=== PATIENT | male | born 1970 | race Caucasian/White ===

== ENCOUNTER → 2018-04-05 14:32 | Outpatient (CLI) | payer BC, SELFPAY ==
[2018-04-05 13:43] VITALS: BMI 28.8
[2018-04-05 15:31] LABS: Anion Gap 5 (5-15); BUN 19 mg/dL (7-18); BUN/Creat Ratio 19.1 RATIO (10-20); Calcium,Total 8.7 mg/dL (8.5-10.1); Chloride 107 mmol/L (98-107); EST Glomerular Filtration Rate 85 mL/min (>60); Est Glom Filt Rate - Afr Amer 102 mL/min (>60); Glucose 84 mg/dL (74-106); Potassium 4.2 mmol/L (3.5-5.1); Sodium Level 137 mmol/L (136-145)
== END ==
PROVIDERS: Referring Provider Internal Medicine Cardiovascular Disease; Visit Provider Internal Medicine Cardiovascular Disease
DX: I10 Essential (primary) hypertension (principal)
CPT/HCPCS: 36415; 80048

== ENCOUNTER → 2018-05-06 11:56 | Outpatient (CLI) | payer BC, SELFPAY ==
[2018-05-06 10:58] VITALS: BMI 28.8
[2018-05-06 15:19] LABS: Absolute Lymphocyte Count 3.85 X10^3/ul (0.83-4.51); Absolute Neutrophil Count 4.2 X10^3/uL (2.0-7.7); Basophil# 0.04 X10^3/uL; Basophil% 0.4 % (0-1); Eosinophil# 0.19 X10^3/uL; Eosinophils% 2.1 % (0-5); Hematocrit 45.6 % (40-54); Hemoglobin 14.3 g/dl (13.0-16.5); Lymphocyte # 3.85 X10^3/ul (4.0); Lymphocyte % 41.9 % (19-41); Mean Corp Hgb Conc 31.4 g/gl (32-36); Mean Corpuscular Hgb 28.5 pg (27.0-32.0); Mean Platelet Vol. 11.4 fl (6.2-12.0); Monocyte# 0.92 X10^3/uL; Neutrophil # 4.18 X10^3/uL (2.7-7.7); Neutrophil % 45.5 % (47-70); Platelet Count 295 K/mm3 (150-450); RBC Distribution Width CV 15.2 % (11.6-14.6); RBC Distribution Width SD 50.7 fl (35.1-43.9); Red Blood Count 5.01 M/mm3 (4.6-6.2); White Blood Count 9.2 K/mm3 (4.4-11.0)
[2018-05-06 15:23] LABS: POSITIVE COUNT NO; POSITIVE DIFFERENTIAL NO; POSITIVE MORPHOLOGY NO
[2018-05-06 15:44] LABS: Anion Gap 8 (5-15); BUN 13 mg/dL (7-18); BUN/Creat Ratio 12.9 RATIO (10-20); Calcium,Total 8.8 mg/dL (8.5-10.1); Chloride 106 mmol/L (98-107); Creatinine, Serum 1.01 mg/dL (0.70-1.30); EST Glomerular Filtration Rate 83 mL/min (>60); Est Glom Filt Rate - Afr Amer 101 mL/min (>60); Glucose 91 mg/dL (74-106); Sodium Level 140 mmol/L (136-145); Thyroid Stim Hormone (TSH) 1.51 uIU/mL (0.358-3.74)
== END ==
PROVIDERS: Visit Provider Physician Assistant Medical
DX: I10 Essential (primary) hypertension (principal); I47.1 Supraventricular tachycardia; R00.2 Palpitations
CPT/HCPCS: 36415; 80048; 83735; 84443; 85025

== ENCOUNTER → 2018-10-23 17:47 | Outpatient (CLI) | payer BC, SELFPAY ==
[2018-05-20 15:27] VITALS: BMI 28.8
--- NOTE | 2018-10-23 17:55 | CT_ITS ---
STUDY: CT MAXILLOFACIAL SINUSES REASON FOR EXAM: Male, 48 years old. Sinusitis, sinus congestion RADIATION DOSAGE (If Supplied By Facility): CTDIvol = ( 33.06 ) mGy, DLP = ( 871.04 ) mGycm TECHNIQUE: The patient was scanned in a multi detector CT scanner. High resolution axial imaging was performed without the administration of intravenous contrast material. Sagittal and coronal images were reconstructed. Individualized dose optimization techniques were used for this CT. COMPARISON: MRI brain 04/09/2014. FINDINGS: FRONTAL SINUSES: There is mucosal thickening and partial opacification.. ETHMOIDAL SINUSES: There is significant opacification and mucosal thickening. MAXILLARY SINUSES: There is mucosal thickening without air-fluid levels. There is disruption of the inferior floor of the right maxillary sinus with displaced tooth into the right maxillary sinus. SPHENOIDAL SINUSES: There is mild mucosal thickening. There are no air-fluid levels. There is bilateral soft tissue obstruction of the ostiomeatal complexes. There is mild edema of the turbinates. Mild deviation of the bony nasal septum to the right. The visualized bilateral orbital contents are normal. The patient is partially edentulous. There are significant multilevel degenerative changes of the cervical spine only partially included on the oowwa-yu-bter. There is multilevel disc osteophyte complexes, disc space narrowing, uncinate hypertrophy, significant multilevel facet degenerative changes. There is multilevel central canal and foraminal stenoses CT/Sinus/Facial Bone IMPRESSION: Significant diffuse pansinusitis with the most significant involvement are the ethmoid sinuses Bilateral soft tissue obstruction of the ostiomeatal complexes Disruption of the inferior floor of the right maxillary sinus with a displaced tooth into the right maxillary sinus Mild deviation of the bony nasal septum to the right Mild edema of the turbinates The patient is partially edentulous. Multilevel spondylosis of the cervical spine as described above Electronically Signed: Cesar Hearn, at 7:39 EDT Tel , Service support ,
== END ==
PROVIDERS: Referring Provider Otolaryngology; Visit Provider Otolaryngology
DX: J32.0 Chronic maxillary sinusitis (principal)
CPT/HCPCS: 70486

== ENCOUNTER 2019-06-10 00:12 | Observation (INO) | payer BC, SELFPAY ==
[2018-12-12 15:37] VITALS: BMI 28.8
[2019-06-10] VITALS (13 sets, daily range): BP systolic 121–154; BP diastolic 75–96; PULSE 70–86; RESP 14–20; TEMP 36.3–36.8; O2SAT 93–99; BMI 29.2; BMI 28.6; BMI 28.7
--- NOTE | 2019-06-10 00:17 | ED.RN ---
SUSI [facility] EKGS FOR
--- NOTE | 2019-06-10 00:23 | EKG12_ITS ---
Test Reason : CP Blood Pressure : / mmHG Vent. Rate : 082 BPM Atrial Rate : 082 BPM P-R Int : 146 ms QRS Dur : 152 ms QT Int : 398 ms P-R-T Axes : 051 015 032 degrees QTc Int : 464 ms Normal sinus rhythm Right bundle branch block Abnormal ECG Confirmed by RAS SIN ([id number]), communications editor DHARA MILAN ([id number]) on 06/16/2019 2:51:09 PM Referred By: DC Confirmed By:RAS SIN
--- NOTE | 2019-06-10 00:23 | RAD_ITS ---
STUDY: X-RAY CHEST REASON FOR EXAM: Male, 49 years old. C/O MUSCLE SPASMS IN CHEST TECHNIQUE: Single AP portable view of the chest. COMPARISON: 02/29/2016. FINDINGS: The lungs are underexpanded with fullness of the central markings, otherwise clear lungs. There is no demonstrated pleural abnormality. Normal size heart. Normal mediastinum and sujata. Normal visualized pulmonary arteries. Normal visualized aortic arch and descending thoracic aorta. Normal visualized thoracic spine. Normal visualized ribs, clavicles, and shoulders. There is no demonstrated abnormality of the visualized soft tissue structures of the upper abdomen. RAD/Chest 1 View (Portable) IMPRESSION: No acute cardiopulmonary disease. Electronically Signed: Cari Markham MD at 1:06 EDT , Service support ,
[2019-06-10] MEDS: Aspirin 81 MG TAB.CHEW 324 MG PO (00:29)
[2019-06-10 00:36] LABS: Absolute Lymphocyte Count 5.82 X10^3/uL (0.83-4.51); Absolute Neutrophil Count 4.4 X10^3/uL (2.0-7.7); Basophil# 0.11 X10^3/uL; Basophil% 0.9 % (0-1); Eosinophil# 0.41 X10^3/uL; Eosinophils% 3.3 % (0-5); Hematocrit 45.4 % (40-54); Lymphocyte # 5.82 X10^3/ul (4.0); Lymphocyte % 47.4 % (19-41); Mean Corpuscular Hgb 29.3 pg (27.0-32.0); Mean Corpuscular Volume 88.7 fL (80-94); Mean Platelet Vol. 10.5 fl (6.2-12.0); Monocyte# 1.54 X10^3/uL; Monocyte% 12.5 % (0-10); NRBC Flagged by Analyzer 0 % (0-5); Neutrophil # 4.38 X10^3/uL (2.7-7.7); Neutrophil % 35.7 % (47-70); POSITIVE DIFFERENTIAL YES; Platelet Count 263 K/mm3 (150-450); RBC Distribution Width CV 14.2 % (11.6-14.6); RBC Distribution Width SD 45.9 fl (35.1-43.9); Red Blood Count 5.12 M/mm3 (4.6-6.2); White Blood Count 12.3 K/mm3 (4.4-11.0)
[2019-06-10 00:38] LABS: Differential Indicated SCAN CRITERIA MET
[2019-06-10 00:52] LABS: Anion Gap 6 (5-15); BUN 20 mg/dL (7-18); BUN/Creat Ratio 19.2 RATIO (10-20); Calcium,Total 8.8 mg/dL (8.5-10.1); Chloride 107 mmol/L (98-107); Creatinine, Serum 1.04 mg/dL (0.70-1.30); EST Glomerular Filtration Rate 80 mL/min (>60); Est Glom Filt Rate - Afr Amer 97 mL/min (>60); Glucose 110 mg/dL (74-106); Potassium 3.7 mmol/L (3.5-5.1); Sodium Level 141 mmol/L (136-145)
[2019-06-10 01:05] LABS: Differential Comment SCANNED
--- NOTE | 2019-06-10 01:17 | ED.DCSUM_ITS ---
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 He presents with chest discomfort in his left chest and retrosternal area that has been going on since 9:30 PM this evening. Nothing seems to bring it on or make it worse. Nothing seems to make it better. He does have some shortness of breath with it. It does not feel like his prior palpitations/AVNRT. Patient denies any history of recent infection, fevers, illness. Denies any history of blood clots or aortic disease. Physical Examination: Afebrile and vital signs unremarkable except for hypertension. Alert and oriented. No acute distress. Heart regular. Lungs clear. Abdomen soft. Skin appears normal. Calves soft and supple. Test Results: EKG shows sinus rhythm at a rate of 82 with right bundle branch block pattern, unchanged. White count 12.3, glucose 110, BUN 20, troponin 0 0.086. Chest x-ray showed nothing acute. Emergency Department Course and Treatment: Patient has atypical cardiac symptoms, but he does have a history of mild coronary disease, hypertension, and AVNRT. I did not notice any dysrhythmias here to explain his symptoms. He was treated with aspirin while awaiting results. White count slightly elevated and troponin was indeterminate. Patient is stable on reevaluation. Heart score is a 4, and so I am recommending observation. I do not have another explanation for his symptoms at this point. I will contact the hospitalist. Treatment Plan: As above Disposition: Observation Impression: Chest pain, palpitations, hypertension This note was generated with [employer] dictation software. It may contain incorrect words, spelling, and punctuation that were not noted in review of the chart prior to signing ED Disposition - Plan for ED Patient: Referrals: Care Physician,No Primary [Primary Care Provider] -
--- NOTE | 2019-06-10 01:36 | PCM.HP.STD ---
Problem List (1) History of prior ablation treatment Status: Chronic (2) History of PSVT (paroxysmal supraventricular tachycardia) Status: Chronic (3) Atherosclerosis of coronary artery of habematolel heart without angina pectoris Status: Chronic (4) Essential (primary) hypertension Status: Chronic (5) Right bundle branch block (RBBB) Status: Chronic (6) Chest pain Status: Acute History of Present Illness Date of Admission: 06/10/19 Chief Complaint: chest pain The patient is a 49 year old patient with a past medical history of coronary artery disease diagnosed in 2014 with a diagonal branch of 60% disease who is also status post ablation for paroxysmal supraventricular tachycardia in 2015 as well who presents to the emergency room with chest pain. Onset of chest pain began while patient was at rest this evening. He describes it as a fluttering sensation with tightness in the lower part of his chest that is nonradiating. This was not associated with exertion but came on randomly. He has an elevated troponin of 0.086 and a slightly elevated white blood cell count however the patient is afebrile and denies cough or shortness of breath. Patient has seen Dr. Villatoro in the past and will be admitted and Dr. Villatoro will be consulted. Past Medical History Past Medical History (Chronic Problems): Chronic Problems (Last Reviewed 12/12/18 @ 15:[address] Julio Villatoro MD) History of prior ablation treatment (Chronic) History of PSVT (paroxysmal supraventricular tachycardia) (Chronic) Atherosclerosis of coronary artery of habematolel heart without angina pectoris (Chronic) Paroxysmal supraventricular tachycardia (Chronic) Essential (primary) hypertension (Chronic) Right bundle branch block (RBBB) (Chronic) Medical History: Medical History (Last Reviewed 12/12/18 @ 15:[address] Julio Villatoro MD) Atherosclerosis of coronary artery of habematolel heart without angina pectoris (Chronic) I25.10 Paroxysmal supraventricular tachycardia (Chronic) I47.1 Essential (primary) hypertension (Chronic) I10 Right bundle branch block (RBBB) (Chronic) I45.10 Ulcerative colitis K51.90 Allergies metoprolol Adverse Reaction (Intermediate, Verified 06/10/19 00:19) dizzy,lightheaded DIAL SOAP Allergy (Uncoded 06/10/19 00:19) Hives MAGIC MOUTH WASH Allergy (Uncoded 06/10/19 00:19) throat swelling XYLOCAINE VISCOUS Allergy (Uncoded 06/10/19 00:19) throat swelling Home Medications: Ambulatory Orders Medication Instructions Recorded Mesalamine [Lialda] 2.4 gm PO DAILY 10/21/14 atenolol 25 mg tablet 25 mg PO DAILY #30 tab 05/06/18 sertraline 50 mg tablet 50 mg PO DAILY #30 tab 05/20/18 amlodipine 10 mg tablet 10 mg PO DAILY #90 tab 06/02/19 Surgical History: Surgical History (Last Reviewed 12/12/18 @ 15:[address] Julio Villatoro MD) History of tonsillectomy Z90.89 History of appendectomy Z90.49 History of kidney surgery Z98.890 Repair of upj abstruction History of left heart catheterization Onset Date: 08/28/14 Z98.890 History of nasal polypectomy Z98.890, Z87.09 History of open reduction and internal fixation (ORIF) procedure Z98.890 right arm History of radiofrequency ablation procedure for cardiac arrhythmia Onset Date: 04/28/14 Z98.890 History of surgical removal of testicle Z98.890, Z90.79 Surgical History: tonsillectomy, - - History of cardiac catheterization, cardiac ablation. Psychiatric History: No pertinent psych hx Smoking Status: Never smoker - *Family History Paternal Family History: Family History (Last Reviewed 12/12/18 @ 15:[address] Julio Villatoro MD) Father CAD (coronary artery disease) Mother Heart disease Brother Heart disease History Items: Heart Disease Maternal Family History: Family History (Last Reviewed 12/12/18 @ 15:[address] Julio Villatoro MD) Father CAD (coronary artery disease) Mother Heart disease Brother Heart disease History Items: No pertinent history Review of Systems Constitutional: Denies: Chills, Fever, Weight Change HEENT: Denies: Head Aches, Sinus Congestion, Sinus Drainage Cardiovascular: Reports: Chest Pain, Chest Pressure. Denies: Palpitations Respiratory: Denies: Cough, Shortness of breath at rest, Sputum production Gastrointestinal: Denies: Abdominal Pain, Nausea, Vomiting Genitourinary: Denies: Dysuria Musculoskeletal: Denies: Joint Pain, Joint Tenderness Skin: Denies: Rash, Wounds Neurological: Denies: Numbness, Tingling, Focal weakness Psychiatric: Denies: Anxiety, Depression, Homicidal Ideations, Suicidal Ideations Hematologic/ Lymphatic: Denies: Easy Bruising, Easy Bleeding VTE Information - Inpt Only VTE Present on Admission: No VTE Mechan Device Prophylaxis: None VTE Pharm Prophylaxis ordered?: Yes Patient Problems: Active and Suspected Problems (Last Reviewed 12/12/18 @ 15:[address] Julio Villatoro MD) Chest pain (Acute) - Physical Exam Vitals/I&O's: Vital Signs Temp Pulse Resp BP Pulse Ox 98.1 F 79 20 H 149/93 H 98 06/10/19 01:31 06/10/19 01:31 06/10/19 01:31 06/10/19 01:31 06/10/19 01:31 Oxygen Flow Rate (L/min) 1 Oxygen Delivery Method Nasal Cannula Weight: 209 lb 7.026 oz Body Mass Index (BMI) 29.2 Finger Stick Blood Glucose 92 General: Alert, Oriented x3, Cooperative HEENT: Atraumatic, Normocephalic Neck: Supple Lungs: Clear to auscultation, Normal air movement, No rhonchi, No wheeze, No rales Cardiovascular: Regular rate, Regular Rhythm, Normal S1, Normal S2 Abdomen: Bowel Sounds Present, Soft Extremities: No edema Skin: No rashes Musculoskeletal: No Tenderness to Palpation of Joints or Extremities Neurological: Neuro grossly intact Psych/Mental Status: Normal Affect, Appropriate Laboratory Results 06/10/19 00:30: WBC 12.3 H, RBC 5.12, Hgb 15.0, Hct 45.4, MCV 88.7, MCH 29.3, MCHC 33.0, RDW Std Deviation 45.9 H, RDW Coeff of Justine 14.2, Plt Count 263, MPV 10.5, Immature Gran % (Auto) 0.200, Neut % (Auto) 35.7 L, Lymph % (Auto) 47.4 H, [place] % (Auto) 12.5 H, Eos % (Auto) 3.3, Baso % (Auto) 0.9, Absolute Neuts (auto) 4.4, Absolute Lymphs (auto) 5.82 H, Nucleated RBC % 0, Differential Comment SCANNED, Diff Path Review June06/10/19 00:30: Sodium 141, Potassium 3.7, Chloride 107, Carbon Dioxide 28.0, Anion Gap 6, BUN 20 H, Creatinine 1.04, Estim Creat Clear Calc 89.50, Est GFR (MDRD) Af Amer 97, Est GFR (MDRD) Non-Af 80, BUN/Creatinine Ratio 19.2, Glucose 110 H, Calcium 8.8, Troponin I 0.086 H Assessment/Plan All Active Problems (Last Reviewed 12/12/18 @ 15:[address] Julio Villatoro MD) Chest pain (Acute) Dyspnea (Resolved) Exacerbation of ulcerative colitis (Resolved) Chronic Problems (Last Reviewed 12/12/18 @ 15:[address] Julio Villatoro MD) History of prior ablation treatment (Chronic) History of PSVT (paroxysmal supraventricular tachycardia) (Chronic) Atherosclerosis of coronary artery of habematolel heart without angina pectoris (Chronic) Paroxysmal supraventricular tachycardia (Chronic) Essential (primary) hypertension (Chronic) Right bundle branch block (RBBB) (Chronic) Plan 1. Chest pain/elevated troponin?due to patient history of coronary artery disease in 2014 he will be placed in progressive care unit, cycle cardiac enzymes, morphine oxygen nitroglycerin and aspirin as needed per protocol, keep patient n.p.o., start IV normal saline at 125 cc/h, consult Dr. Villatoro, anticipate need for heart catheterization. 2. History of arrhythmia?patient is currently in a right bundle branch block 3. Hypertension?continue current beta-miranda and calcium channel miranda 4. DVT prophylaxis?low molecular weight heparin OBSV E&M: [id number] Initial observation care L2
--- NOTE | 2019-06-10 02:12 | EKG12_ITS ---
Test Reason : CP ADMIT Blood Pressure : / mmHG Vent. Rate : 070 BPM Atrial Rate : 070 BPM P-R Int : 154 ms QRS Dur : 150 ms QT Int : 442 ms P-R-T Axes : 073 007 024 degrees QTc Int : 477 ms Normal sinus rhythm Right bundle branch block Abnormal ECG Confirmed by ALIE GE, TRISH ([id number]), copy editor DHARA MILAN ([id number]) on 06/16/2019 3:31:00 PM Referred By: DR CAMPO Confirmed By:TRISH STRANGE MD
[2019-06-10] MEDS: 0.9% Normal Saline 1,000 ML 125 ML IV (02:42)
[2019-06-10] MEDS: 0.9% Saline Lock 10 ML Syringe IV (02:43)
[2019-06-10 03:55] LABS: Absolute Lymphocyte Count 3.61 X10^3/uL (0.83-4.51); Absolute Neutrophil Count 4.7 X10^3/uL (2.0-7.7); Basophil# 0.08 X10^3/uL; Basophil% 0.8 % (0-1); Eosinophil# 0.25 X10^3/uL; Eosinophils% 2.6 % (0-5); Hematocrit 44.5 % (40-54); Hemoglobin 14.6 g/dL (13.0-16.5); Lymphocyte # 3.61 X10^3/ul (4.0); Lymphocyte % 37.2 % (19-41); Mean Corp Hgb Conc 32.8 g/dL (32-36); Mean Corpuscular Hgb 29.4 pg (27.0-32.0); Mean Corpuscular Volume 89.5 fL (80-94); Mean Platelet Vol. 10.5 fl (6.2-12.0); Monocyte# 1.08 X10^3/uL; Monocyte% 11.1 % (0-10); NRBC Flagged by Analyzer 0 % (0-5); Neutrophil # 4.66 X10^3/uL (2.7-7.7); Neutrophil % 48.1 % (47-70); Platelet Count 265 K/mm3 (150-450); RBC Distribution Width CV 14.4 % (11.6-14.6); RBC Distribution Width SD 46.4 fl (35.1-43.9); Red Blood Count 4.97 M/mm3 (4.6-6.2); White Blood Count 9.7 K/mm3 (4.4-11.0)
[2019-06-10 04:03] LABS: International Normalized Ratio 0.9; Prothrombin Time (Protime)PT. 11.8 SECONDS (11.7-14.9)
[2019-06-10 04:18] LABS: Anion Gap 4 (5-15); BUN 18 mg/dL (7-18); Calcium,Total 8.4 mg/dL (8.5-10.1); Chloride 108 mmol/L (98-107); Cholesterol 174 mg/dL (200); EST Glomerular Filtration Rate 84 mL/min (>60); Est Glom Filt Rate - Afr Amer 101 mL/min (>60); Estimated Creatinine Clearance 93.08 ml/min; Glucose 116 mg/dL (74-106); High Density Lipoprotein 40 mg/dL; Magnesium 2.3 mg/dL (1.6-2.6); Phosphorus 3.8 mg/dL (2.5-4.9); Potassium 3.9 mmol/L (3.5-5.1); Sodium Level 139 mmol/L (136-145); Thyroid Stim Hormone (TSH) 1.48 uIU/mL (0.358-3.74); Triglycerides 110 mg/dL; Very Low Density Lipoprotein 22 mg/dL (5-40)
[2019-06-10] MEDS: amLODIPine 10 MG Tablet PO (08:27)
[2019-06-10] MEDS: Aspirin E.C. 325 MG Tablet PO (08:27)
--- NOTE | 2019-06-10 11:44 | STRESSREP ---
Stress Test Report Date: 06-10-2019 Procedure: Exercise tolerance test/imaging study Indications: Chest pain; PSVT; status post ablation Consent: Per the patient Procedure: The patient exercised on a Jai protocol for 9 minutes completing Stage III achieving a peak heart rate of 153 bpm (90 % predicted maximal heart rate) with a peak blood pressure 180/80 mmHg and a peak MET capacity of 10 METs. The baseline ECG demonstrated normal sinus rhythm; right bundle branch block. The peak exercise ECG demonstrated no obvious ECG changes. There were no cardiac dysrhythmias pretest, during exercise, or recovery. The functional capacity was considered good. There was no complaint of chest discomfort during exercise or recovery. The examination was discontinued secondary to dyspnea and leg fatigue. Impression: 1. Technically adequate (percent predicted maximal heart rate greater than 85%) exercise tolerance test 2. Peak exercise ECG with continued right bundle branch block with no obvious ECG changes 3. There were no cardiac dysrhythmias pretest, during exercise, or recovery 4. Nuclear images pending Myocardial perfusion imaging study: Technique: The patient was injected with 14.1 mCi of technetium 99m Cardiolite and subsequently rest SPECT Cardiolite nuclear imaging was obtained in the horizontal long, vertical long, and short axis views. The patient exercised on a Jai protocol for 9 minutes completing Stage III achieving a peak heart rate of 153 bpm (90 % predicted maximal heart rate) with a peak blood pressure 180/80 mmHg and a peak MET capacity of 10 METs. The patient was injected with 42.8 mCi of technetium 99m Cardiolite and subsequently stress SPECT Cardiolite nuclear imaging was obtained in the horizontal long, vertical long, and short axis views. A gated Cardiolite study at peak stress was obtained. Interpretation: Rest and stress SPECT Cardiolite nuclear imaging status post realignment, normalization, and attenuation correction, demonstrates the appearance of relative uniform tracer uptake and myocardial perfusion appearing within normal limits. There is end systolic thickening and brightening. The gated Cardiolite study demonstrates myocardial thickening and inward wall motion. The reported LVEF is 56 %. Impression: 1. Rest and stress SPECT Cardiolite nuclear imaging demonstrate relative uniform tracer uptake and myocardial perfusion appearing within normal limits. 2. The gated Cardiolite study reports an LVEF of 56 %. This note was generated with [employer] software. It may contain incorrect words, spelling, and punctuation that were not noted in checking the note before signing.
[2019-06-10 12:23] LABS: Pathologist Review Reviewed
--- NOTE | 2019-06-10 12:31 | DCINST_ITS ---
- Discharge Diagnoses Current Active Problems: Current Active and Chronic Problems (Last Reviewed 12/12/18 @ 15:[address] Julio Villatoro MD) History of prior ablation treatment (Chronic) History of PSVT (paroxysmal supraventricular tachycardia) (Chronic) Chest pain (Acute) Reason(s) for Visit for Discharge Instructions: Chest pain You will use the following diet at home:: Cardiac Your food should be the consistency of: Regular Your liquids should be the consistency of: Regular/Thin Discharge Activity: Return to Normal Activity Additional Instructions: Continue to take all your medications as prescribed. Follow-up with your cardiology. Allergies/Adverse Reactions: Allergies metoprolol Adverse Reaction (Intermediate, Verified 06/10/19 00:19) dizzy,lightheaded DIAL SOAP Allergy (Uncoded 06/10/19 00:19) Hives MAGIC MOUTH WASH Allergy (Uncoded 06/10/19 00:19) throat swelling XYLOCAINE VISCOUS Allergy (Uncoded 06/10/19 00:19) throat swelling Medications to take at Discharge Mesalamine [Lialda] 2.4 gm PO DAILY 10/21/14 atenolol 25 mg tablet 25 mg PO DAILY #30 tab 05/06/18 sertraline 50 mg tablet 50 mg PO DAILY #30 tab 05/20/18 amlodipine 10 mg tablet 10 mg PO DAILY #90 tab 06/02/19 Primary Care Physician: Care Physician,No Primary [Primary Care Provider] - Please follow up with your Primary Care Physician in: within 2-4 weeks Test Results: Test results from this visit will be discussed in further detail at your follow- up appointment, if applicable. Please Follow Up With: Julio Villatoro MD When: within 2 weeks Proposed Discharge Date: 06/10/19
--- NOTE | 2019-06-10 12:33 | PCM.DC.SUM ---
Discharge Date and Diagnosis Date of Admission: 06/10/19 Date of Discharge: 06/10/19 - Primary Discharge Diagnosis Active and Suspected Problems (Last Reviewed 12/12/18 @ 15:[address] Julio Villatoro MD) Chest pain (Acute), ACS ruled out. - Secondary Discharge Diagnosis Chronic Problems (Last Reviewed 12/12/18 @ 15:[address] Julio Villatoro MD) History of prior ablation treatment (Chronic) History of PSVT (paroxysmal supraventricular tachycardia) (Chronic) Atherosclerosis of coronary artery of [place] heart without angina pectoris (Chronic) Paroxysmal supraventricular tachycardia (Chronic) Essential (primary) hypertension (Chronic) Right bundle branch block (RBBB) (Chronic) Hospital Course and Treatment Imaging Results: 06/10/19 08:06 Nuclear Stress Test - Treadmil [NM] Routine Clinical Impression(s) from Imaging Studies Chest X-Ray 06/10/19 00:23 IMPRESSION: No acute cardiopulmonary disease. Electronically Signed: Cari Markham MD at 1:06 EDT , Service support , None Operations: None Procedures: Stress test Summary of Care Provided: The patient is a 49 year old M with past medical history of hypertension, paroxysmal SVT, s/p ablation, CAD who comes in with chest pain that started on the evening of the admission. Patient describes as some spasms that started in the lower part of the chest and epigastric region. Happened after he had eating. Did not radiate. Came back again later on. He got concerned and decided to come to the hospital. His admitting EKG showed no acute ST change. Troponin was 0.086. He was monitored on telemetry and troponins were trended. It plateaued at 0.067. Patient underwent nuclear stress test which was negative for any active ischemia. Patient was discharged home to follow-up with cardiology in the outpatient. Subjective: On the day of discharge, patient was seen and examined. Denied any new complaints. Denied any chest pain or dizziness or palpitation. - Physical Exam Vitals/I&O's: Vital Signs Temp Pulse Resp BP Pulse Ox 98.3 F 80 14 121/75 H 97 06/10/19 08:08 06/10/19 08:08 06/10/19 08:08 06/10/19 08:08 06/10/19 08:08 Oxygen Flow Rate (L/min) 1 Oxygen Delivery Method Room Air Weight: 93.2 kg Body Mass Index (BMI) 28.6 Finger Stick Blood Glucose 92 Intake and Output for Last 24 Hours 06/08/19 06/09/19 06/10/19 23:59 23:59 23:59 Intake Total 1000 / 1000 Output Total 350 / 350 Balance 650 / 650 General: Alert, Oriented x3, Cooperative, No apparent distress HEENT: Atraumatic, PERRLA, EOMI, Normocephalic Oral: Moist Mucosa Neck: Supple Lungs: Clear to auscultation, Normal air movement Cardiovascular: Regular rate, Regular Rhythm, Normal S1, Normal S2, No murmurs Abdomen: Bowel Sounds Present, Soft, Non Tender, Non-Distended, No Hepato-splenomegaly Extremities: No edema Skin: No rashes, No breakdown Musculoskeletal: No Tenderness to Palpation of Joints or Extremities Lymphatic: No Cervical, Supraclavicular, or Inguinal Adenopathy Neurological: Cranial nerves II-XII grossly intact, Neuro grossly intact Psych/Mental Status: Normal Affect, Appropriate Laboratory Results 06/10/19 00:30: WBC 12.3 H, RBC 5.12, Hgb 15.0, Hct 45.4, MCV 88.7, MCH 29.3, MCHC 33.0, RDW Std Deviation 45.9 H, RDW Coeff of Justine 14.2, Plt Count 263, MPV 10.5, Immature Gran % (Auto) 0.200, Neut % (Auto) 35.7 L, Lymph % (Auto) 47.4 H, Fergus % (Auto) 12.5 H, Eos % (Auto) 3.3, Baso % (Auto) 0.9, Absolute Neuts (auto) 4.4, Absolute Lymphs (auto) 5.82 H, Nucleated RBC % 0, Differential Comment SCANNED, Diff Path Review Reviewed 06/10/19 00:30: Sodium 141, Potassium 3.7, Chloride 107, Carbon Dioxide 28.0, Anion Gap 6, BUN 20 H, Creatinine 1.04, Estim Creat Clear Calc 89.50, Est GFR (MDRD) Af Amer 97, Est GFR (MDRD) Non-Af 80, BUN/Creatinine Ratio 19.2, Glucose 110 H, Calcium 8.8, Troponin I 0.086 H 06/10/19 03:43: WBC 9.7, RBC 4.97, Hgb 14.6, Hct 44.5, MCV 89.5, MCH 29.4, MCHC 32.8, RDW Std Deviation 46.4 H, RDW Coeff of Justine 14.4, Plt Count 265, MPV 10.5, Immature Gran % (Auto) 0.200, Neut % (Auto) 48.1, Lymph % (Auto) 37.2, Fergus % (Auto) 11.1 H, Eos % (Auto) 2.6, Baso % (Auto) 0.8, Absolute Neuts (auto) 4.7, Absolute Lymphs (auto) 3.61, Nucleated RBC % 0 06/10/19 03:43: Sodium 139, Potassium 3.9, Chloride 108 H, Carbon Dioxide 27.0, Anion Gap 4 L, BUN 18, Creatinine 1.00, Estim Creat Clear Calc 93.08, Est GFR (MDRD) Af Amer 101, Est GFR (MDRD) Non-Af 84, BUN/Creatinine Ratio 18.0, Glucose 116 H, Calcium 8.4 L, Phosphorus 3.8, Magnesium 2.3, Triglycerides 110, Cholesterol 174, LDL Cholesterol 112, VLDL Cholesterol 22, HDL Cholesterol 40, TSH 1.48 06/10/19 03:43: Troponin I 0.061 H 06/10/19 03:43: PT 11.8, INR 0.9 06/10/19 07:15: Troponin I 0.067 H Current Medications Amlodipine Besylate (Norvasc) 10 mg PO DAILY [facility] Last Admin: 06/10/19 08:27 Dose: 10 mg Documented by: Aspirin (Ecotrin) 325 mg PO DAILY@0800 [facility] Last Admin: 06/10/19 08:27 Dose: 325 mg Documented by: Atenolol (Tenormin (Beta Domo)) 25 mg PO DAILY [facility] Enoxaparin Sodium (Lovenox) 40 mg SC DAILY [facility] Sodium Chloride () 1,000 mls @ 125 mls/hr IV .Q8H [facility] Last Infusion: 06/10/19 11:11 Dose: Infused Documented by: Mesalamine (Lialda) 2.4 gm PO DAILY [facility] Morphine Sulfate () 2 mg IV Q3H PRN PRN PRN Reason: Pain Score 6-10/10 Nitroglycerin (Nitrostat) 0.4 mg SUBLINGUAL Q5M PRN PRN Reason: CARDIAC/CHEST PAIN Sertraline HCl (Zoloft) 50 mg PO DAILY [facility] Sodium Chloride () 10 - 40 ml IV UD PRN PRN Reason: SALINE FLUSH Last Admin: 06/10/19 02:43 Dose: 10 ml Documented by: Discharge Diet: Low fat/ Low Cholesterol, 2000 mg Sodium Diet Discharge Activity: Return to Normal Activity Home Medications: Medications to take at Discharge Mesalamine [Lialda] 2.4 gm PO DAILY 10/21/14 atenolol 25 mg tablet 25 mg PO DAILY #30 tab 05/06/18 sertraline 50 mg tablet 50 mg PO DAILY #30 tab 05/20/18 amlodipine 10 mg tablet 10 mg PO DAILY #90 tab 06/02/19 Primary Care Physician: Care Physician,No Primary [Primary Care Provider] - Please follow up with your Primary Care Physician in: within 2-4 weeks Please Follow Up With: Julio Villatoro MD When: within 2 weeks Disposition: Home Minutes spent on discharge:: 40 Patient Condition:: Stable Medical Necessity - Tobacco Use Smoking Status: Never smoker Meaningful Use Info Meaningful Use Diagnoses (Choose all that apply): None applicable OBSV E&M: 80259 Observation care discharge
--- NOTE | 2019-06-10 12:41 | PCA ---
List of area PCPs given to patient with discharge paperwork
== END 2019-06-10 12:33 | disposition home or self-care (01) ==
LOC: ED 00:51 → PCU 04:44
PROVIDERS: Admitting Provider Family Medicine; Emergency Provider Emergency Medicine; Visit Provider Internal Medicine
DX: R07.89 Other chest pain (principal); I25.10 Atherosclerotic heart disease of native coronary artery without angina pectoris; I45.10 Unspecified right bundle-branch block; I10 Essential (primary) hypertension; I47.1 Supraventricular tachycardia; R00.2 Palpitations; K51.90 Ulcerative colitis, unspecified, without complications; Z79.899 Other long term (current) drug therapy; R06.00 Dyspnea, unspecified
CPT/HCPCS: 36415; 71045; 78452; 80048; 80061; 83735; 84100; 84443; 84484; 85025; 85610; 93005; 93017; 96360; 96361; 99218; 99285; A9500; J7030; A4216; G0378

== ENCOUNTER 2020-07-14 03:46 | Emergency (ER) | payer OTHER, SELFPAY ==
[2020-02-17 12:48] VITALS: BMI 30.4
[2020-07-14 03:46] VITALS: BP 149/107; PULSE 72; RESP 16; TEMP 36.3; O2SAT 96; BMI 29.7
--- NOTE | 2020-07-14 03:57 | EDS_ITS ---
HPI History of Present Illness Chief Complaint: Hypertension Narrative Narrative: Patient stated an hour ago he woke up with his heart racing. Took his blood pressure and it was in the 150s systolic. 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 Has a history of hypertension. Has history of SVT status post remote ablation. Has a history of nonobstructive atherosclerosis of coronary artery. Denies any complaints at this time. He stated he just did not feel right which concerned him. He has never had a heart attack per patient. Denies any shortness of breath [facility] Medical History (Updated 07/14/20 @ 05:[address] Srikanth Cash MD) Essential (primary) hypertension Nonobstructive atherosclerosis of coronary artery Paroxysmal supraventricular tachycardia Right bundle branch block (RBBB) Ulcerative colitis Home Medications mesalamine 2.4 gm PO DAILY 10/21/14 [History Last Taken 06/09/19] atenolol 25 mg tablet 25 mg PO DAILY #90 tab 02/17/20 [Rx Last Taken Unknown] sertraline 100 mg tablet 50 mg PO DAILY tab 02/17/20 [History Last Taken Unknown] amlodipine 5 mg tablet 5 mg PO DAILY #90 tab 07/13/20 [Rx Last Taken Unknown] hydrochlorothiazide 25 mg tablet 25 mg PO DAILY #30 tab 07/13/20 [Rx Last Taken Unknown] Allergy/AdvReac Type Severity Reaction Status Date / Time metoprolol AdvReac Intermediate dizzy,light Verified 07/14/20 03:48 headed DIAL SOAP Allergy Hives Uncoded 07/14/20 03:48 MAGIC MOUTH WASH Allergy throat Uncoded 07/14/20 03:48 swelling XYLOCAINE VISCOUS Allergy throat Uncoded 07/14/20 03:48 swelling Family History Father CAD (coronary artery disease) Mother Heart disease Brother Heart disease Surgical History History of appendectomy History of kidney surgery History of left heart catheterization (08/28/14) History of nasal polypectomy History of open reduction and internal fixation (ORIF) procedure History of radiofrequency ablation procedure for cardiac arrhythmia (04/28/14) History of surgical removal of testicle History of tonsillectomy Social History Smoking Status: Never smoker alcohol intake: never substance use type: does not use caffeine: Yes Type: tea Number of servings: 3 ROS ROS ED ROS Narrative ROS General: Denies fever, chills, sweats Eyes: Denies visual changes, blurred vision, double vision ENT: Denies ear pain, rhinorrhea, sore throat Cardiovascular: See HPI. Denies chest pain Respiratory: Denies dyspnea, cough, sputum, dyspnea on exertion, orthopnea,PND GI: Denies abdominal pain, nausea, vomiting, diarrhea, constipation, melena : Denies dysuria, hematuria, frequency Musculoskeletal: Denies myalgias, arthralgias, neck pain, back pain Skin: Denies rash, abscess, abrasions Neuro: Denies headache, weakness, paresthesia Psych: Denies depression, anxiety Endo: Denies polyuria, polydipsia, polyphagia Heme: Denies easy bruising, easy bleeding, lymphadenopathy Allergy: Denies hives, swelling EXAM Physical Exam Narrative Exam Narrative: Vital signs reviewed General: Well-nourished well-developed Head: Normocephalic atraumatic Eyes: Pupils equal round and reactive to light extraocular movements intact ENT: TMs clear no hemotympanum no trauma Neck: Nontender full range of motion Cardiovascular: Regular rate rhythm no murmurs normal S1-S2 Respiratory: No distress clear to auscultation bilaterally chest nontender Abdomen: Soft nontender nondistended normal bowel sounds no masses Back: Nontender no CVA tenderness Extremities: Nontender active range of motion ?4 extremities no trauma Skin: Normal color no trauma Neuro alert oriented cranial nerves II through XII intact normal strength sensation reflexes Const Vital Signs: 07/14/20 03:46 07/14/20 03:52 Temperature 97.4 F L Temperature Source Temporal Pulse Rate 72 Respiratory Rate 16 Respiratory Effort Normal Respiratory Pattern Normal Blood Pressure 149/107 H Blood Pressure Mean 121 Pulse Ox 96 Oxygen Delivery Method Room Air MDM MDM MDM Narrative Medical decision making narrative: Resting comfortably. Lab work and EKG obtained. EKG shows sinus rhythm at a rate of 64 with an right bundle branch block which is old. Unchanged from previous EKG. Lab work shows mild leukocytosis of 12.6. Potassium is mildly low at 3.4. Calcium is mildly low at 8.4. Troponin is negative at 0.039. On reevaluation resting comfortably. Blood pressure is down to 130 systolic over 89 diastolic. I feel he can be discharged to follow-up as an outpatient Lab Data Labs: Laboratory Results - last 24 hr 07/14/20 07/14/20 04:03 04:03 WBC 12.6 H RBC 5.19 Hgb 15.1 Hct 46.4 MCV 89.4 MCH 29.1 MCHC 32.5 RDW Std Deviation 47.4 H RDW Coeff of Justine 14.5 Plt Count 280 MPV 10.8 Immature Gran % (Auto) 0.200 Neut % (Auto) 27.8 L Lymph % (Auto) 56.0 H Mora % (Auto) 11.0 H Eos % (Auto) 4.0 Baso % (Auto) 1.0 Absolute Neuts (auto) 3.5 Absolute Lymphs (auto) 7.06 H Nucleated RBC % 0 Sodium 142 Potassium 3.4 L Chloride 107 Carbon Dioxide 27.0 Anion Gap 8 BUN 16 Creatinine 1.03 Estim Creat Clear Calc 89.35 Est GFR (MDRD) Af Amer 97 Est GFR (MDRD) Non-Af 81 BUN/Creatinine Ratio 15.5 Glucose 101 Calcium 8.4 L Troponin I 0.039 Discharge Plan Triage Chief Complaint: Hypertension ED Provider: Srikanth Cash Dx/Rx/DC Orders Clinical Impression: Essential (primary) hypertension, Heart palpitations Instructions: ED High Blood Pressure ..., ED Palpitations Prescriptions: No Action sertraline 100 mg tablet 50 mg PO DAILY RF: 0 atenolol 25 mg tablet 25 mg PO DAILY Qty: 90 RF: 3 mesalamine 1.2 GM tablet 2.4 gm PO DAILY RF: 0 amlodipine 5 mg tablet 5 mg PO DAILY Qty: 90 RF: 3 hydrochlorothiazide 25 mg tablet 25 mg PO DAILY Qty: 30 RF: 11 Primary Care Provider: Care Physician,No Primary Referrals: Care Physician,No Primary [Primary Care Provider] - Disposition Disposition: Home, self care
--- NOTE | 2020-07-14 03:57 | EKG12_ITS ---
Test Reason : DYSRHYTHMIA Blood Pressure : / mmHG Vent. Rate : 064 BPM Atrial Rate : 064 BPM P-R Int : 146 ms QRS Dur : 158 ms QT Int : 464 ms P-R-T Axes : 059 -16 -07 degrees QTc Int : 478 ms Normal sinus rhythm Right bundle branch block Abnormal ECG Confirmed by NYASIA GE, AYSHA ([id number]), legal editor ARON WONG ([id number]) on 07/15/2020 12:48:21 PM Referred By: RAHEEM Confirmed By:RANDOLPH MURRELL MD
[2020-07-14 04:18] LABS: Absolute Lymphocyte Count 7.06 X10^3/uL (0.83-4.51); Absolute Neutrophil Count 3.5 X10^3/uL (2.0-7.7); Basophil# 0.12 X10^3/uL; Hematocrit 46.4 % (40-54); Hemoglobin 15.1 g/dL (13.0-16.5); Lymphocyte # 7.06 X10^3/ul (0.83-4.51); Mean Corp Hgb Conc 32.5 g/dL (32-36); Mean Corpuscular Hgb 29.1 pg (27.0-32.0); Mean Corpuscular Volume 89.4 fL (80-94); Mean Platelet Vol. 10.8 fl (6.2-12.0); Monocyte# 1.39 X10^3/uL; NRBC Flagged by Analyzer 0 % (0-5); Neutrophil # 3.51 X10^3/uL (2.7-7.7); Neutrophil % 27.8 % (47-70); POSITIVE DIFFERENTIAL YES; Platelet Count 280 K/mm3 (150-450); RBC Distribution Width CV 14.5 % (11.6-14.6); RBC Distribution Width SD 47.4 fl (35.1-43.9); Red Blood Count 5.19 M/mm3 (4.6-6.2); White Blood Count 12.6 K/mm3 (4.4-11.0)
[2020-07-14 04:19] LABS: Differential Indicated SCAN CRITERIA MET
[2020-07-14 04:46] LABS: Anion Gap 8 (5-15); BUN 16 mg/dL (7-18); BUN/Creat Ratio 15.5 RATIO (10-20); Calcium,Total 8.4 mg/dL (8.5-10.1); Chloride 107 mmol/L (98-107); Creatinine, Serum 1.03 mg/dL (0.70-1.30); EST Glomerular Filtration Rate 81 mL/min (>60); Est Glom Filt Rate - Afr Amer 97 mL/min (>60); Estimated Creatinine Clearance 89.35 ml/min; Glucose 101 mg/dL (74-106); Potassium 3.4 mmol/L (3.5-5.1); Sodium Level 142 mmol/L (136-145)
[2020-07-14] MEDS: Potassium Chloride Oral Tablet 20 MEQ PO (05:15)
[2020-07-14 05:18] VITALS: BP 136/86; PULSE 71; RESP 16; O2SAT 98
== END 2020-07-14 05:19 | disposition home or self-care (01) ==
PROVIDERS: Emergency Provider Emergency Medicine
DX: I10 Essential (primary) hypertension (principal); E87.6 Hypokalemia; R00.2 Palpitations; I25.10 Atherosclerotic heart disease of native coronary artery without angina pectoris; I47.1 Supraventricular tachycardia; K51.90 Ulcerative colitis, unspecified, without complications; Z79.899 Other long term (current) drug therapy
CPT/HCPCS: 80048; 84484; 85025; 93005; 99285; A4216

== ENCOUNTER → 2020-07-30 13:14 | Outpatient (CLI) | payer OTHER, SELFPAY ==
[2020-07-14 03:46] VITALS: BMI 29.7
[2020-07-30 14:02] LABS: Anion Gap 7 (5-15); BUN 17 mg/dL (7-18); BUN/Creat Ratio 15.3 RATIO (10-20); Calcium,Total 9.2 mg/dL (8.5-10.1); Chloride 104 mmol/L (98-107); Creatinine, Serum 1.11 mg/dL (0.70-1.30); EST Glomerular Filtration Rate 74 mL/min (>60); Est Glom Filt Rate - Afr Amer 89 mL/min (>60); Glucose 99 mg/dL (74-106); Potassium 3.3 mmol/L (3.5-5.1); Sodium Level 141 mmol/L (136-145)
== END ==
PROVIDERS: Referring Provider Physician Assistant Medical; Visit Provider Physician Assistant Medical
DX: E87.6 Hypokalemia (principal); I10 Essential (primary) hypertension
CPT/HCPCS: 36415; 80048

== ENCOUNTER → 2020-08-17 12:48 | Outpatient (CLI) | payer OTHER, SELFPAY ==
[2020-08-17 13:53] LABS: Anion Gap 8 (5-15); BUN 15 mg/dL (7-18); BUN/Creat Ratio 12.1 RATIO (10-20); Calcium,Total 8.8 mg/dL (8.5-10.1); Chloride 103 mmol/L (98-107); Creatinine, Serum 1.24 mg/dL (0.70-1.30); EST Glomerular Filtration Rate 65 mL/min (>60); Est Glom Filt Rate - Afr Amer 79 mL/min (>60); Glucose 116 mg/dL (74-106); Potassium 3.1 mmol/L (3.5-5.1); Sodium Level 140 mmol/L (136-145)
== END ==
PROVIDERS: Referring Provider Physician Assistant Medical; Visit Provider Physician Assistant Medical
DX: E87.6 Hypokalemia (principal)
CPT/HCPCS: 36415; 80048

== ENCOUNTER → 2020-09-29 14:07 | Outpatient (CLI) | payer OTHER, SELFPAY ==
[2020-09-29 15:31] LABS: Anion Gap 7 (5-15); BUN 17 mg/dL (7-18); BUN/Creat Ratio 16.3 RATIO (10-20); Calcium,Total 8.8 mg/dL (8.5-10.1); Chloride 106 mmol/L (98-107); Creatinine, Serum 1.04 mg/dL (0.70-1.30); EST Glomerular Filtration Rate 80 mL/min (>60); Est Glom Filt Rate - Afr Amer 96 mL/min (>60); Glucose 84 mg/dL (74-106); Potassium 3.8 mmol/L (3.5-5.1); Sodium Level 139 mmol/L (136-145)
== END ==
PROVIDERS: Referring Provider Physician Assistant Medical; Visit Provider Physician Assistant Medical
DX: E87.6 Hypokalemia (principal); I10 Essential (primary) hypertension
CPT/HCPCS: 36415; 80048

== ENCOUNTER 2020-10-29 01:47 | Emergency (ER) | payer OTHER, SELFPAY ==
[2020-10-29 01:48] VITALS: BP 149/98; PULSE 74; PULSE 77; RESP 16; RESP 18; TEMP 36.9; O2SAT 97; O2SAT 98; BMI 29.4
--- NOTE | 2020-10-29 02:10 | EKG12_ITS ---
Test Reason : CP Blood Pressure : / mmHG Vent. Rate : 072 BPM Atrial Rate : 072 BPM P-R Int : 154 ms QRS Dur : 160 ms QT Int : 444 ms P-R-T Axes : 065 023 014 degrees QTc Int : 486 ms Sinus rhythm with occasional Premature ventricular complexes Right bundle branch block Abnormal ECG Confirmed by SHAYNA GE, RADHA ([id number]), editor in chief ARON WONG ([id number]) on 11/01/2020 10:09:11 AM Referred By: LORIN Confirmed By:RADHA CORRAL MD
[2020-10-29] MEDS: Aspirin 81 MG TAB.CHEW 324 MG PO (02:14)
--- NOTE | 2020-10-29 02:15 | RAD_ITS ---
STUDY: X-RAY CHEST REASON FOR EXAM: Male, 50 years old. chest pain TECHNIQUE: Single AP portable view of the chest. COMPARISON: None. FINDINGS: The lungs are clear and expanded. There is no demonstrated pleural abnormality. Normal size heart. Normal mediastinum and sujata. Normal visualized pulmonary arteries. Normal visualized aortic arch and descending thoracic aorta. Normal visualized thoracic spine. Normal visualized ribs, clavicles, and shoulders. There is no demonstrated abnormality of the visualized soft tissue structures of the upper abdomen. RAD/Chest 1 View (Portable) IMPRESSION: Normal x-ray examination of the chest. Electronically Signed: Denisse Allen MD at 2:58 EDT Tel , Service support ,
[2020-10-29 02:21] LABS: Absolute Lymphocyte Count 7.11 X10^3/uL (0.83-4.51); Basophil# 0.13 X10^3/uL; Eosinophil# 0.46 X10^3/uL; Eosinophils% 3.5 % (0-5); Hematocrit 44.3 % (40-54); Hemoglobin 14.5 g/dL (13.0-16.5); Lymphocyte # 7.11 X10^3/ul (0.83-4.51); Lymphocyte % 53.9 % (19-41); Mean Corp Hgb Conc 32.7 g/dL (32-36); Mean Corpuscular Hgb 29.5 pg (27.0-32.0); Mean Corpuscular Volume 90.2 fL (80-94); Mean Platelet Vol. 11.2 fl (6.2-12.0); Monocyte# 1.47 X10^3/uL; Monocyte% 11.1 % (0-10); NRBC Flagged by Analyzer 0 % (0-5); Neutrophil # 3.99 X10^3/uL (2.7-7.7); Neutrophil % 30.3 % (47-70); POSITIVE DIFFERENTIAL YES; Platelet Count 291 K/mm3 (150-450); RBC Distribution Width CV 14.5 % (11.6-14.6); RBC Distribution Width SD 48.4 fl (35.1-43.9); Red Blood Count 4.91 M/mm3 (4.6-6.2); White Blood Count 13.2 K/mm3 (4.4-11.0)
[2020-10-29 02:35] LABS: Anion Gap 7 (5-15); BUN 18 mg/dL (7-18); BUN/Creat Ratio 16.8 RATIO (10-20); Calcium,Total 8.7 mg/dL (8.5-10.1); Chloride 107 mmol/L (98-107); Creatinine, Serum 1.07 mg/dL (0.70-1.30); EST Glomerular Filtration Rate 77 mL/min (>60); Est Glom Filt Rate - Afr Amer 93 mL/min (>60); Estimated Creatinine Clearance 86.01 ml/min; Glucose 105 mg/dL (74-106); Potassium 3.4 mmol/L (3.5-5.1); Sodium Level 140 mmol/L (136-145); Troponin-I HS 58 pg/mL (3.0-78.0)
[2020-10-29 02:48] VITALS: BP 142/95; PULSE 68; RESP 16; O2SAT 95
[2020-10-29 02:50] LABS: Differential Indicated SCAN CRITERIA MET
[2020-10-29 02:59] LABS: Atypical Lymphocyte 1+ %; Differential Comment SCANNED
--- NOTE | 2020-10-29 03:53 | ED.VIS.CHEST ---
HPI History of Present Illness Chief Complaint: Chest Pain Informant: patient Onset/Context/Timing Onset: Today and Hours Activity at onset: gradual Timing: Continuous Quality: Positive for Aching Location: Left Chest Current Severity: Mild Maximum Severity: Mild Worsened By: Nothing Relieved By: Nothing Associated Symptoms: Negative for Nausea, Vomiting, Diaphoresis, Dyspnea, Cough, Fever, Lightheadedness, Acid Reflux and Palpitations Narrative Narrative: 50-year-old male known history of prior SVT for which he had a cardiac ablation done 5 years ago. That was done in [facility]. Patient states since that time he has had atypical left-sided chest wall pain that comes and goes of the last 5 years. He denies any prior history of DVT or PE. No hemoptysis. This is not pleuritic. He has known mild coronary disease is never needed any stents he is never had an SD. His last cardiac catheterization was several years ago. He has had similar symptoms that he is having the night for the last 3 months. He describes as a cramping knot in his left lateral rib cage. Not associated with exertion or shortness of breath. Prior Similar Symptoms: Yes Recent Illness/Hospitalization: No PE Risk Factors: Negative for Recent Immobilization, Prior DVT or PE, Cancer and OCP + Smoking + >/=35 TAD Risk Factors: Negative for Marfan's Syndrome and Family History [facility] Medical History Essential (primary) hypertension History of tilt table evaluation (07/2014) Hypokalemia Nonobstructive atherosclerosis of coronary artery Paroxysmal supraventricular tachycardia Right bundle branch block (RBBB) Syncope Ulcerative colitis Home Medications mesalamine 2.4 g PO DAILY 10/21/14 [History Last Taken 06/09/19] atenolol 25 mg tablet 25 mg PO DAILY #90 tab 02/17/20 [Rx Last Taken Unknown] sertraline 100 mg tablet 50 mg PO DAILY tab 02/17/20 [History Last Taken Unknown] amlodipine 5 mg tablet 5 mg PO DAILY #90 tab 07/13/20 [Rx Last Taken Unknown] Allergy/AdvReac Type Severity Reaction Status Date / Time morphine Allergy Other Verified 10/29/20 01:51 metoprolol AdvReac Intermediate dizzy,light Verified 10/15/20 12:22 headed DIAL SOAP Allergy Hives Uncoded 10/15/20 12:22 MAGIC MOUTH WASH Allergy throat Uncoded 10/15/20 12:22 swelling XYLOCAINE VISCOUS Allergy throat Uncoded 10/15/20 12:22 swelling Family History Father CAD (coronary artery disease) Mother Heart disease Brother Heart disease Surgical History History of appendectomy History of kidney surgery History of left heart catheterization (08/28/14) History of nasal polypectomy History of open reduction and internal fixation (ORIF) procedure History of radiofrequency ablation procedure for cardiac arrhythmia (04/28/14) History of surgical removal of testicle History of tonsillectomy Social History Smoking Status: Never smoker alcohol intake: never substance use type: does not use caffeine: Yes Type: tea Number of servings: 3 ROS ROS ED ROS Narrative Denies recent illness. Denies recent exertional shortness of breath or chest pain Review of Systems ROS Unobtainable: Denies due to encephalopathy Constitutional Constitutional ED: Denies chills or fever(s) Eyes Eyes: Denies none or change in vision ENT ENT ED: Denies ear pain or sore throat Cardiovascular Cardiovascular: Reports as per HPI and chest pain; Denies palpitations Respiratory/Chest Respiratory/Chest: Denies cough, dyspnea or sputum Gastrointestinal Gastrointestinal: Denies abdominal pain, diarrhea, nausea or vomiting Genitourinary Genitourinary ED: Denies dysuria or hematuria Musculoskeletal Musculoskeletal: Denies arthralgias or myalgias Integumentary Denies abscess or rash Neurologic Neurologic: Denies headache(s) Psychiatric Psychiatric: Denies depression Endocrine Endocrinology: Denies polyuria Hematologic/Lymphatic Hematologic/Lymphatic: Denies easy bruising Allergic/Immunologic Allergic/Immunologic ED: Denies urticaria EXAM Physical Exam Narrative Exam Narrative: Male no acute distress vital signs stable afebrile. Pulse ox 97% on room air no signs hypoxia. H EENT exam unremarkable. Neck nontender no JVD. Lungs clear to auscultation bilaterally. Heart regular rate and rhythm rate about 70 no murmur. Chest wall nontender. No ecchymosis or bruising. No subcu air crepitus. No reproducible chest wall pain. He describes the pain over his left lateral rib cage. Abdomen soft nontender normal bowel sounds no peritoneal signs. Moving all 4 extremities. Calves nontender without edema or cords. Back nontender. Neurologically is awake and alert with no focal motor deficits. Normal exam. Const Vital Signs: 10/29/20 01:48 10/29/20 02:10 10/29/20 02:48 Temperature 98.4 F Temperature Source Oral Pulse Rate 77 68 Respiratory Rate 18 16 Blood Pressure 149/98 H 142/95 H Blood Pressure Mean 115 110 Pulse Ox 97 95 Oxygen Delivery Method Room Air Room Air Room Air Positive well nourished and well developed; Negative for obese, cachectic, contractures or unkempt General Appearance ED: well developed and NAD; Negative for unkempt, cachectic, contractures or pallor Nutritional Appearance: Negative for cachectic or obese HEENT Reports moist mucous membranes normocephalic and atraumatic; Negative for trauma or tenderness Eyes PERRL and EOMs intact bilaterally Neck no lymphadenopathy, supple and no JVD General: Negative for tenderness Chest Wall inspection of chest normal and palpation of chest normal Chest: Negative for tenderness Resp normal respiratory effort and clear to auscultation bilaterally Effort and Inspection: respiratory distress; Negative for pain with movement Auscultation: Negative for rales, rhonchi, wheezes or diminished lung sounds Cardio regular rate, regular rhythm, S1 normal heart sound, S2 normal heart sound and no murmurs Rate: Negative for bradycardia or tachycardic Rhythm: Negative for abnormal rhythm GI normal to inspection, nondistended, normoactive bowel sounds, soft to palpation, non-tender, non-distended and no masses Auscultation: Negative for hyperactive bowel sounds Palpation: Negative for mass Back/Spine no CVA tenderness Extremity normal to inspection General Extremety ED: Negative for edema, pulses abnormal or tenderness General Extremity: Negative for edema or pulses abnormal Neuro oriented x3 and CN's II-XII intact bilaterally Sensorium / Orientation: awake, alert, oriented to person, oriented to place and oriented to time Motor Exam: strength 5/5 throughout; Negative for strength abnormal Psych mental status grossly normal Appearance: Negative for unkempt Mood & Affect: Negative for depressed or tearful Skin no rashes or lesions noted and no wounds General Skin Exam: Negative for jaundice or pallor Heart Score History: Slightly/Non-Suspicious ECG: Normal Age: >45 - <65 years Risk Factors: 1 or 2 Risk Factors Troponin: </= Normal Limit Score: 2 MDM MDM MDM Narrative Medical decision making narrative: Well-appearing male with very atypical left-sided nonreproducible chest pain. He has had this multiple times in before. He has had extensive cardiac work-up. Repeat exam patient is doing well at 4 AM. He is comfortable being discharged home. Lab Data Attestation: I reviewed the patient's lab results. Lab results narrative: CBC shows a white count 13. Hemoglobin of 14.5. Electrolytes unremarkable gap 7. Creatinine 1. Glucose 105. Troponin 58. Labs: Laboratory Results - last 24 hr 10/29/20 10/29/20 01:52 01:52 WBC 13.2 H RBC 4.91 Hgb 14.5 Hct 44.3 MCV 90.2 MCH 29.5 MCHC 32.7 RDW Std Deviation 48.4 H RDW Coeff of Justine 14.5 Plt Count 291 MPV 11.2 Immature Gran % (Auto) 0.200 Neut % (Auto) 30.3 L Lymph % (Auto) 53.9 H Bea[place]gard % (Auto) 11.1 H Eos % (Auto) 3.5 Baso % (Auto) 1.0 Absolute Neuts (auto) 4.0 Absolute Lymphs (auto) 7.11 H Nucleated RBC % 0 Differential Comment SCANNED Atypical Lymphocytes 1+ Sodium 140 Potassium 3.4 L Chloride 107 Carbon Dioxide 26.0 Anion Gap 7 BUN 18 Creatinine 1.07 Estim Creat Clear Calc 86.01 Est GFR (MDRD) Af Amer 93 Est GFR (MDRD) Non-Af 77 BUN/Creatinine Ratio 16.8 Glucose 105 Calcium 8.7 Troponin I High Sens 58 Radiography Chest X-Ray - ED: 1 View, Read by ED Physician, Read by Radiologist, Normal, Heart, Lungs, Mediastinum, Bony Structures and No Acute Disease Diagnostic Testing: Radiology Impression Chest X-Ray 10/29/20 02:15 IMPRESSION: Normal x-ray examination of the chest. Electronically Signed: Denisse Allen MD at 2:58 EDT Tel , Service support , Single view chest x-ray interpreted both by myself and radiologist shows no acute abnormality. Normal cardiac silhouette. No bony abnormalities. No infiltrates. No pneumothorax. Rhythm Strip Rhythm Strip: Sinus Rhythm Rate: 72 Ectopy: PVC(s) EKG Initial EKG: Attestation: I personally reviewed and interpreted this EKG as follows: Interpretation: Sinus Rhythm and No Acute Injury Pattern Comments: Normal sinus rhythm rate of 72. Right bundle branch block. No acute signs of SD or ischemia. Unchanged from prior EKG from July of this year. Occasional PVCs. Discharge Plan Triage Chief Complaint: Chest Pain ED Provider: Joseph Duarte Dx/Rx/DC Orders Clinical Impression: Chest pain of unknown etiology Instructions: ED Pain, Acute, Uncertain Cause Prescriptions: No Action sertraline 100 mg tablet 50 mg PO DAILY RF: 0 atenolol 25 mg tablet 25 mg PO DAILY Qty: 90 RF: 3 mesalamine 1.2 GM tablet 2.4 g PO DAILY RF: 0 amlodipine 5 mg tablet 5 mg PO DAILY Qty: 90 RF: 3 Primary Care Provider: Care Physician,No Primary Referrals: Jam Tarango MD [STAFF PHYSICIAN] - As Needed Care Physician,No Primary [Primary Care Provider] - Activity Restrictions/Additional Instructions: Your labs, EKG and chest x-ray today were unremarkable. No specific cause for your pain. Outpatient follow-up with your primary care physician or Dr. Villatoro as needed. Disposition Disposition: Home, Self Care
[2020-10-29 04:24] VITALS: BP 142/95
== END 2020-10-29 04:27 | disposition home or self-care (01) ==
PROVIDERS: Emergency Provider Emergency Medicine
DX: R07.9 Chest pain, unspecified (principal); E87.6 Hypokalemia; I45.10 Unspecified right bundle-branch block; I47.1 Supraventricular tachycardia; I25.10 Atherosclerotic heart disease of native coronary artery without angina pectoris; I10 Essential (primary) hypertension; K51.90 Ulcerative colitis, unspecified, without complications; Z79.899 Other long term (current) drug therapy
CPT/HCPCS: 71045; 80048; 84484; 85025; 93005; 99285; A4216

== ENCOUNTER → 2020-11-05 08:37 | Outpatient (CLI) | payer OTHER, SELFPAY | PROVIDERS: Referring Provider Physician Assistant Medical; Visit Provider Physician Assistant Medical | DX: R00.2 Palpitations (principal); R07.9 Chest pain, unspecified; I45.10 Unspecified right bundle-branch block; I10 Essential (primary) hypertension | CPT/HCPCS: 93271 ==

== ENCOUNTER 2020-12-06 22:05 | Emergency (ER) | payer OTHER, SELFPAY ==
[2020-12-06 22:06] VITALS: BP 146/99; PULSE 81; RESP 16; TEMP 36.1; O2SAT 99; BMI 29.8
--- NOTE | 2020-12-06 22:20 | EKG12_ITS ---
Test Reason : PALPATIONS Blood Pressure : / mmHG Vent. Rate : 084 BPM Atrial Rate : 084 BPM P-R Int : 150 ms QRS Dur : 156 ms QT Int : 400 ms P-R-T Axes : 050 -13 015 degrees QTc Int : 472 ms Sinus rhythm with occasional Premature ventricular complexes Right bundle branch block Abnormal ECG Confirmed by ALIE GE, TRISH ([id number]), marketing editor ARON WONG ([id number]) on 12/08/2020 9:26:51 AM Referred By: RYAN Confirmed By:TRISH STRANGE MD
--- NOTE | 2020-12-06 22:20 | RAD_ITS ---
HISTORY: chest pain EXAMINATION/TECHNIQUE: XR Chest 1 View: Portable upright AP chest x-ray COMPARISON: 10/29/20 FINDINGS: LINES/DEVICES: None. LUNGS: No consolidation, edema or effusion. No pneumothorax. MEDIASTINUM AND CARDIOVASCULAR STRUCTURES: Cardiac silhouette not enlarged. Central airways and mediastinal contour are unremarkable. BONES AND SOFT TISSUES: No acute bony abnormalities. RAD/Chest 1 View (Portable) IMPRESSION: No radiographic evidence of acute cardiopulmonary disease. at 2319 Reported and signed by: Phi Griffin MD Electronically Signed: Phi Griffin MD at 23:17 EDT Tel , Service support ,
--- NOTE | 2020-12-06 22:21 | EDS_ITS ---
HPI History of Present Illness Chief Complaint: Palpitations Informant: patient Narrative Narrative: Patient presents with intermittent palpitations. He states he feels like his heart beats normally then pauses and then beats a little quicker and then goes back to normal. Is been doing this more today. However, he has a history of this being occurring in the past. He has had SVT. He also just had a desk monitor that was worn but he has not heard the results back. He is not having chest pain or dyspnea with this. No syncope. Denies change in medications. No cold medicines or decongestants. No street drugs. No stimulants or coffee. Nothing consistently makes this better or worse. [facility] Medical History Essential (primary) hypertension History of tilt table evaluation (07/2014) Hypokalemia Nonobstructive atherosclerosis of coronary artery Paroxysmal supraventricular tachycardia Right bundle branch block (RBBB) Syncope Ulcerative colitis Home Medications mesalamine 2.4 g PO DAILY 10/21/14 [History Last Taken 06/09/19] atenolol 25 mg tablet 25 mg PO DAILY #90 tab 02/17/20 [Rx Last Taken Unknown] sertraline 100 mg tablet 50 mg PO DAILY tab 02/17/20 [History Last Taken Unknown] amlodipine 10 mg tablet 10 mg PO DAILY #30 tab 11/30/20 [Rx Last Taken Unknown] potassium chloride 20 meq PO DAILY #10 tab 12/06/20 [Rx Last Taken Unknown] Allergy/AdvReac Type Severity Reaction Status Date / Time morphine Allergy Other Verified 12/06/20 22:06 metoprolol AdvReac Intermediate dizzy,light Verified 12/06/20 22:06 headed DIAL SOAP Allergy Hives Uncoded 12/06/20 22:06 MAGIC MOUTH WASH Allergy throat Uncoded 12/06/20 22:06 swelling XYLOCAINE VISCOUS Allergy throat Uncoded 12/06/20 22:06 swelling Family History Father CAD (coronary artery disease) Mother Heart disease Brother Heart disease Surgical History History of appendectomy History of kidney surgery History of left heart catheterization (08/28/14) History of nasal polypectomy History of open reduction and internal fixation (ORIF) procedure History of radiofrequency ablation procedure for cardiac arrhythmia (04/28/14) History of surgical removal of testicle History of tonsillectomy Social History Smoking Status: Never smoker alcohol intake: never substance use type: does not use caffeine: Yes Type: tea Number of servings: 3 ROS ROS ED Constitutional Constitutional ED: Denies fever(s) Eyes Eyes: Denies blurry vision ENT ENT ED: Denies rhinorrhea or sore throat Cardiovascular Cardiovascular: Reports palpitations; Denies chest pain Respiratory/Chest Respiratory/Chest: Denies cough or dyspnea Gastrointestinal Gastrointestinal: Denies nausea or vomiting Genitourinary Genitourinary ED: Denies dysuria or hematuria Musculoskeletal Musculoskeletal: Denies back pain or neck pain Integumentary Denies rash Neurologic Neurologic: Denies headache(s), paresthesias or weakness Endocrine Endocrinology: Denies polydipsia or polyuria Allergic/Immunologic Allergic/Immunologic ED: Denies urticaria EXAM Physical Exam Const Vital Signs: 12/06/20 22:06 12/06/20 22:40 Temperature 97.0 F L Temperature Source Temporal Pulse Rate 81 89 Respiratory Rate 16 19 H Respiratory Pattern Normal Blood Pressure 146/99 H Blood Pressure Mean 114 Pulse Ox 99 95 Oxygen Delivery Method Room Air Room Air Positive well nourished and well developed General Appearance ED: well developed and NAD HEENT Reports moist mucous membranes Eyes General Eye ED: Negative for pale conjunctiva or scleral icterus Neck no JVD Chest Wall inspection of chest normal and palpation of chest normal Resp normal respiratory effort and clear to auscultation bilaterally Effort and Inspection: Negative for pain with movement Auscultation: Negative for rales, rhonchi or wheezes Cardio regular rate, regular rhythm and no murmurs Rate: other Other Details: Patient's heart sounds very regular. Occasionally has a short pause. I am not hearing any tachycardia. I Ghazala no significant bradycardia. When I hear these quick pauses patient does feel that as his symptoms. This feels like either a PAC or just dropping a single beat. EKG is pending. GI normal to inspection, nondistended, normoactive bowel sounds and non-tender Palpation: soft Back/Spine no CVA tenderness Extremity normal to inspection General Extremety ED: Negative for edema or tenderness General Extremity: Negative for edema Neuro oriented x3 Sensorium / Orientation: alert Psych mental status grossly normal Skin no rashes or lesions noted MDM MDM MDM Narrative Medical decision making narrative: Patient CBC shows minimal elevation of white count 11.4. Hemoglobin is normal. Electrolytes show glucose 129. Calcium is normal. Troponins normal. Potassium is normal but at the low end at 3.5. Patient states that he oftentimes if he takes extra potassium his symptoms go away. I will give him a dose of potassium here. I will write him for a few days. He has had the symptoms off and on for many years. He has had tilt table test. He just had another outpatient Holter monitor. 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 I think he is okay for discharge. His monitor shows occasional PVCs. I have not seen any couplets. Lab Data Attestation: I reviewed the patient's lab results. Labs: Laboratory Results - last 24 hr 12/06/20 12/06/20 22:35 22:35 WBC 11.4 H RBC 5.19 Hgb 15.4 Hct 46.7 MCV 90.0 MCH 29.7 MCHC 33.0 RDW Std Deviation 48.4 H RDW Coeff of Justine 14.6 Plt Count 287 MPV 11.1 Immature Gran % (Auto) 0.300 Neut % (Auto) 36.8 L Lymph % (Auto) 48.3 H Citrus % (Auto) 10.6 H Eos % (Auto) 3.1 Baso % (Auto) 0.9 Absolute Neuts (auto) 4.2 Absolute Lymphs (auto) 5.52 H Nucleated RBC % 0 Differential Comment Sodium 140 Potassium 3.5 Chloride 106 Carbon Dioxide 28.0 Anion Gap 6 BUN 14 Creatinine 1.06 Estim Creat Clear Calc 86.82 Est GFR (MDRD) Af Amer 94 Est GFR (MDRD) Non-Af 78 BUN/Creatinine Ratio 13.2 Glucose 129 H Calcium 8.9 Troponin I High Sens 44 Radiography Diagnostic Testing: Clinical Impression(s) from Imaging Studies Chest X-Ray 12/06/20 22:20 IMPRESSION: No radiographic evidence of acute cardiopulmonary disease. at 2319 Reported and signed by: Phi Griffin MD Electronically Signed: Phi Griffin MD at 23:17 EDT Tel , Service support , EKG Initial EKG: Comments: EKG done for palpitations read by me shows normal sinus rhythm with a rate of 84. There is an occasional PVC. Nonspecific ST and T wave changes likely related to right bundle branch block. No sign of infarct or ischemia. UT interval is normal. QRS duration is long. QT C is at the longer and at 472 ms. This is similar to 29 October 2020. Discharge Plan Triage Chief Complaint: Palpitations ED Provider: Nicola Murry Dx/Rx/DC Orders Clinical Impression: Right bundle branch block (RBBB), Frequent PVCs Instructions: ED Palpitations Prescriptions: New potassium chloride 20 mEq tablet extended release 20 meq PO DAILY Qty: 10 RF: 0 No Action sertraline 100 mg tablet 50 mg PO DAILY RF: 0 atenolol 25 mg tablet 25 mg PO DAILY Qty: 90 RF: 3 mesalamine 1.2 GM tablet 2.4 g PO DAILY RF: 0 amlodipine 10 mg tablet 10 mg PO DAILY Qty: 30 RF: 11 Primary Care Provider: Care Physician,No Primary Referrals: Care Physician,No Primary [Primary Care Provider] - Julio Villatoro MD [STAFF PHYSICIAN] - As Needed Disposition Disposition: Home, Self Care
[2020-12-06 22:40] VITALS: PULSE 89; RESP 19; O2SAT 95
[2020-12-06] MEDS: 0.9% Normal Saline 1,000 ML 1000 ML IV (22:42)
[2020-12-06 23:08] LABS: Absolute Lymphocyte Count 5.52 X10^3/uL (0.83-4.51); Absolute Neutrophil Count 4.2 X10^3/uL (2.0-7.7); Basophil% 0.9 % (0-1); Differential Indicated SCAN CRITERIA MET; Eosinophil# 0.35 X10^3/uL; Eosinophils% 3.1 % (0-5); Hematocrit 46.7 % (40-54); Hemoglobin 15.4 g/dL (13.0-16.5); Lymphocyte # 5.52 X10^3/ul (0.83-4.51); Lymphocyte % 48.3 % (19-41); Mean Corpuscular Hgb 29.7 pg (27.0-32.0); Mean Platelet Vol. 11.1 fl (6.2-12.0); Monocyte# 1.21 X10^3/uL; Monocyte% 10.6 % (0-10); NRBC Flagged by Analyzer 0 % (0-5); Neutrophil # 4.22 X10^3/uL (2.7-7.7); Neutrophil % 36.8 % (47-70); POSITIVE DIFFERENTIAL YES; POSITIVE MORPHOLOGY YES; Platelet Count 287 K/mm3 (150-450); RBC Distribution Width CV 14.6 % (11.6-14.6); RBC Distribution Width SD 48.4 fl (35.1-43.9); Red Blood Count 5.19 M/mm3 (4.6-6.2); White Blood Count 11.4 K/mm3 (4.4-11.0)
[2020-12-06 23:15] LABS: Anion Gap 6 (5-15); BUN 14 mg/dL (7-18); BUN/Creat Ratio 13.2 RATIO (10-20); Calcium,Total 8.9 mg/dL (8.5-10.1); Chloride 106 mmol/L (98-107); Creatinine, Serum 1.06 mg/dL (0.70-1.30); EST Glomerular Filtration Rate 78 mL/min (>60); Est Glom Filt Rate - Afr Amer 94 mL/min (>60); Estimated Creatinine Clearance 86.82 ml/min; Glucose 129 mg/dL (74-106); Potassium 3.5 mmol/L (3.5-5.1); Sodium Level 140 mmol/L (136-145); Troponin-I HS 44 pg/mL (3.0-78.0)
[2020-12-07 00:22] VITALS: BP 143/99; PULSE 80; RESP 16; O2SAT 97
[2020-12-07] MEDS: Potassium Chloride Oral Tablet 20 MEQ 40 MEQ PO (00:22)
== END 2020-12-07 00:23 | disposition home or self-care (01) ==
PROVIDERS: Emergency Provider Emergency Medicine
DX: I45.10 Unspecified right bundle-branch block (principal); I49.3 Ventricular premature depolarization; I47.1 Supraventricular tachycardia; I10 Essential (primary) hypertension; Z79.899 Other long term (current) drug therapy
CPT/HCPCS: 71045; 80048; 84484; 85025; 93005; 96360; 96361; 99285; J7030; A4216

== ENCOUNTER → 2020-12-21 08:27 | Outpatient (CLI) | payer OTHER, SELFPAY ==
[2020-12-21 11:08] LABS: Anion Gap 7 (5-15); BUN 16 mg/dL (7-18); BUN/Creat Ratio 15.8 RATIO (10-20); Chloride 107 mmol/L (98-107); Creatinine, Serum 1.01 mg/dL (0.70-1.30); EST Glomerular Filtration Rate 82 mL/min (>60); Est Glom Filt Rate - Afr Amer 100 mL/min (>60); Glucose 93 mg/dL (74-106); Magnesium 2.1 mg/dL (1.6-2.6); Potassium 3.6 mmol/L (3.5-5.1); Sodium Level 139 mmol/L (136-145); Thyroid Stim Hormone (TSH) 1.22 uIU/mL (0.358-3.74)
== END ==
PROVIDERS: Referring Provider Physician Assistant Medical; Visit Provider Physician Assistant Medical
DX: I49.3 Ventricular premature depolarization (principal)
CPT/HCPCS: 36415; 80048; 83735; 84443

== ENCOUNTER → 2021-01-08 11:17 | Outpatient (CLI) | payer OTHER, SELFPAY | PROVIDERS: Visit Provider Physician Assistant Medical | DX: Z00.00 Encounter for general adult medical examination without abnormal findings (principal) ==

== ENCOUNTER → 2021-01-17 15:21 | Outpatient (CLI) | payer OTHER, SELFPAY ==
[2021-01-17 16:11] LABS: Absolute Lymphocyte Count 4.47 X10^3/uL (0.83-4.51); Absolute Neutrophil Count 3.6 X10^3/uL (2.0-7.7); Basophil% 1.1 % (0-1); Eosinophil# 0.29 X10^3/uL; Eosinophils% 3.1 % (0-5); Hematocrit 47.5 % (40-54); Hemoglobin 15.6 g/dL (13.0-16.5); Lymphocyte # 4.47 X10^3/ul (0.83-4.51); Lymphocyte % 47.1 % (19-41); Mean Corp Hgb Conc 32.8 g/dL (32-36); Mean Corpuscular Hgb 29.4 pg (27.0-32.0); Mean Corpuscular Volume 89.5 fL (80-94); Mean Platelet Vol. 10.6 fl (6.2-12.0); Monocyte# 1.01 X10^3/uL; Monocyte% 10.6 % (0-10); NRBC Flagged by Analyzer 0 % (0-5); Neutrophil % 37.8 % (47-70); Platelet Count 307 K/mm3 (150-450); RBC Distribution Width CV 14.5 % (11.6-14.6); RBC Distribution Width SD 47.5 fl (35.1-43.9); Red Blood Count 5.31 M/mm3 (4.6-6.2); White Blood Count 9.5 K/mm3 (4.4-11.0)
[2021-01-17 17:04] LABS: Anion Gap 8 (5-15); BUN 14 mg/dL (7-18); BUN/Creat Ratio 13.5 RATIO (10-20); Calcium,Total 9.3 mg/dL (8.5-10.1); Chloride 103 mmol/L (98-107); Creatinine, Serum 1.04 mg/dL (0.70-1.30); EST Glomerular Filtration Rate 79 mL/min (>60); Est Glom Filt Rate - Afr Amer 96 mL/min (>60); Glucose 93 mg/dL (74-106); Magnesium 2.3 mg/dL (1.6-2.6); Potassium 3.9 mmol/L (3.5-5.1); Sodium Level 140 mmol/L (136-145); Thyroid Stim Hormone (TSH) 1.61 uIU/mL (0.358-3.74)
== END ==
PROVIDERS: Referring Provider Physician Assistant Medical; Visit Provider Physician Assistant Medical
DX: I10 Essential (primary) hypertension (principal); I47.1 Supraventricular tachycardia
CPT/HCPCS: 36415; 80048; 83735; 84443; 85025

== ENCOUNTER → 2021-01-24 13:50 | Outpatient (CLI) | payer OTHER, SELFPAY ==
--- NOTE | 2021-01-24 13:54 | ECHOD_ITS ---
Reason For Study: PALPITATIONS Procedure This was a 2D Doppler, Color Flow transthoracic echocardiogram. Exam performed in department. Left Ventricle Normal LV size. Left ventricular systolic function is normal. The estimated ejection fraction is 65 %. Stage 1 diastolic dysfunction. No regional wall motion abnormalities noted. Right Ventricle Normal RV size. Normal systolic function. Atria Normal left atrium. Normal right atrium. Mitral Valve Normal mitral valve. Tricuspid Valve Normal tricuspid valve. Mild tricuspid valve insufficiency. Aortic Valve Normal aortic valve. Trisinus/trileaflet aortic valve. Pulmonic Valve Normal pulmonic valve. Great Vessels Normal aortic root. The pulmonary artery is normal size. Normal inferior vena cava. Pericardium/Pleural No pericardial effusion. MMode/2D Measurements & Calculations LVIDd: 5.9 cm IVSd: 0.89 cm Ao root diam: 3.5 cm LVIDs: 4.1 cm LVPWd: 0.93 cm RVDd: 3.5 cm FS: 31.8 % LAV(MOD-bp): 51.2 ml LVAd ap4: 37.8 cm2 LVAd ap2: 29.6 cm2 LAV(MOD-bp) Indexed: 23.5 ml/m2 LVLd ap4: 9.0 cm LVLd ap2: 8.4 cm LAV(MOD-sp2): 44.0 ml EDV(MOD-sp4): 135.3 ml EDV(MOD-sp2): 95.7 ml LAV(MOD-sp4): 51.6 ml EDV(sp4-el): 134.7 ml EDV(sp2-el): 88.2 ml LVAs ap4: 23.9 cm2 LVAs ap2: 21.5 cm2 LVLs ap4: 8.0 cm LVLs ap2: 7.7 cm ESV(MOD-sp4): 62.6 ml ESV(MOD-sp2): 51.9 ml ESV(sp4-el): 60.6 ml ESV(sp2-el): 50.9 ml EF(MOD-sp4): 53.7 % EF(MOD-sp2): 45.7 % EF(sp4-el): 55.0 % SV(MOD-sp4): 72.7 ml SV(MOD-sp2): 43.8 ml SV(sp4-el): 74.1 ml LA dimension(2D): 3.3 cm LA A4 area: 18.7 cm2 RA A4 area: 14.9 cm2 Doppler Measurements & Calculations MV E max sergio: 61.8 cm/sec Lat Peak E' Sergio: 10.6 cm/sec Med Peak E' Sergio: 6.6 cm/sec MV A max sergio: 76.9 cm/sec E/E' lat: 5.8 E/E' med: 9.3 MV E/A: 0.80 Ao V2 max: 125.3 cm/sec LV V1 max: 85.5 cm/sec PA V2 max: 95.2 cm/sec Ao max P.3 mmHg LV V1 max P.9 mmHg Ao V2 mean: 92.1 cm/sec LV V1 mean P.5 mmHg Ao mean P.6 mmHg LV V1 mean: 56.2 cm/sec Ao V2 VTI: 24.6 cm LV V1 VTI: 15.6 cm TR max sergio: 233.8 cm/sec TR max P.9 mmHg ECHO/Echo Complete Interpretation Summary Normal LV size. Left ventricular systolic function is normal. The estimated ejection fraction is 65 %. Stage 1 diastolic dysfunction. Mild tricuspid valve insufficiency. Ordering Physician: Romi Gilliland/Julio Villatoro Performed By: Vanessa Moran, STEPH, RVT
== END ==
PROVIDERS: Visit Provider Physician Assistant Medical
DX: I47.1 Supraventricular tachycardia (principal); I10 Essential (primary) hypertension
CPT/HCPCS: 93306

== ENCOUNTER 2021-03-02 01:03 | Emergency (ER) | payer OTHER, SELFPAY ==
[2021-03-02 01:04] VITALS: BP 132/82; PULSE 70; RESP 15; TEMP 35.8; O2SAT 96; BMI 40.0
--- NOTE | 2021-03-02 01:23 | CT_ITS ---
EXAM: CT HEAD WITHOUT INTRAVENOUS CONTRAST CLINICAL INDICATION: head ache TECHNIQUE: Multiple axial images were obtained of the head without intravenous contrast. CTDIvol = ( 44.99 ) mGy, DLP = ( 829.85 ) mGycm This CT exam was performed using one or more of the following dose reduction techniques: automated exposure control, adjustment of the mA and/or kV according to patient size, and/or use of iterative reconstruction technique. This report was created using [email or web address] report generation technology. COMPARISON: None. FINDINGS: BRAIN AND EXTRA-AXIAL SPACES: Unremarkable. No intra- or extra-axial hemorrhage. No evidence of acute infarct. No intracranial mass or mass effect. There is preservation of the morse/white matter interface. Posterior fossa structures are unremarkable. Ventricles are appropriate for age. No hydrocephalus. Basal cisterns are patent. BONES/JOINTS: Unremarkable. No discrete lytic or blastic abnormalities. SINUSES: Extensive paranasal sinus mucosal thickening. No air-fluid levels. MASTOID AIR CELLS: Unremarkable. Clear. Atherosclerotic calcification of the right vertebrobasilar artery. ORBITS: Visualized globes, extraocular muscles, optic nerves and retrobulbar fat appear unremarkable. CT/Brain/Head without Contrast IMPRESSION: Negative head/brain CT without intravenous contrast. Electronically Signed: Roberto Vidales MD at 1:53 EST Tel , Service support ,
--- NOTE | 2021-03-02 01:23 | EDS_ITS ---
HPI History of Present Illness Chief Complaint: General Illness Informant: patient Narrative Narrative: Patient presents with a small area of burning sensation on the top of his scalp on the right side only. He states this started this morning. When it started he felt jittery and shaky. However those symptoms are gone. He was seen at [facility]. They did CBC, basic metabolic, TSH and magnesium. He was told all these were normal. They also did a CAT scan. He reports that is being normal but being told he may need an MRI and he could follow-up here for that as [facility] did not have an MRI. He states he did call and make an appointment to be seen. However, he came back in here tonight because he states that when he bumps the area or turns his head the burning sometimes gets worse. This was making it hard to sleep. He has no numbness tingling weakness bowel bladder dysfunction discoordination change in speech or vision. He states its not a headache at all. It is an area on the right side of his scalp in the mid frontal area that feels like something hot is placed on top of it. It is a burning and hot sensation. He did have a slight injury to that area but it was about a week and a half ago. He had reading glasses on his head when he hit his head into a machine. It did been the glasses. However, he did not really have any burning sensation until just this morning. [facility] Medical History Essential (primary) hypertension History of tilt table evaluation (07/2014) Hypokalemia Nonobstructive atherosclerosis of coronary artery Paroxysmal supraventricular tachycardia Right bundle branch block (RBBB) Syncope Ulcerative colitis Home Medications mesalamine 2.4 g PO DAILY 10/21/14 [History Last Taken 06/09/19] sertraline 100 mg tablet 50 mg PO DAILY tab 02/17/20 [History Last Taken Unknown] amlodipine 10 mg tablet 10 mg PO DAILY #30 tab 11/30/20 [Rx Last Taken Unknown] potassium chloride 10 mEq capsule,extended release 10 meq PO DAILY #30 cap 01/04/21 [Rx Last Taken Unknown] losartan 25 mg tablet 25 mg PO DAILY #90 tab 01/17/21 [Rx Last Taken Unknown] metoprolol succinate 50 mg PO DAILY 03/02/21 [History Last Taken Unknown] Allergy/AdvReac Type Severity Reaction Status Date / Time morphine Allergy Other Verified 03/02/21 01:06 metoprolol AdvReac Intermediate dizzy,light Verified 03/02/21 01:06 headed DIAL SOAP Allergy Hives Uncoded 03/02/21 01:06 MAGIC MOUTH WASH Allergy throat Uncoded 03/02/21 01:06 swelling XYLOCAINE VISCOUS Allergy throat Uncoded 03/02/21 01:06 swelling Family History Father CAD (coronary artery disease) Mother Heart disease Brother Heart disease Surgical History History of appendectomy History of kidney surgery History of left heart catheterization (08/28/14) History of nasal polypectomy History of open reduction and internal fixation (ORIF) procedure History of radiofrequency ablation procedure for cardiac arrhythmia (04/28/14) History of surgical removal of testicle History of tonsillectomy Social History Smoking Status: Never smoker alcohol intake: never substance use type: does not use caffeine: Yes Type: tea Number of servings: 3 ROS ROS ED Constitutional Constitutional ED: Denies fever(s) Eyes Eyes: Reports other Details: This morning he felt as though his eyes were shaking but that was transient. ; Denies blurry vision ENT ENT ED: Reports other Details: See history of present illness. ; Denies ear pain, rhinorrhea or sore throat Cardiovascular Cardiovascular: Reports other Details: History of PVCs but not having that is an issue now ; Denies chest pain or palpitations Respiratory/Chest Respiratory/Chest: Denies cough or dyspnea Gastrointestinal Gastrointestinal: Denies nausea or vomiting Genitourinary Genitourinary ED: Denies dysuria, hematuria or urinary frequency Musculoskeletal Musculoskeletal: Denies arthralgias, back pain, myalgias or neck pain Integumentary Denies Abrasions or rash Neurologic Neurologic: Reports other Details: See history of present illness. ; Denies headache(s), paresthesias or weakness Psychiatric Psychiatric: Reports depression Endocrine Endocrinology: Denies polydipsia or polyuria Allergic/Immunologic Allergic/Immunologic ED: Reports mouth swelling; Denies tongue swelling or urticaria EXAM Physical Exam Const Vital Signs: 03/02/21 01:04 Temperature 96.4 F L Temperature Source Temporal Pulse Rate 70 Respiratory Rate 15 Blood Pressure 132/82 H Blood Pressure Mean 98 Pulse Ox 96 Oxygen Delivery Method Room Air Positive well nourished and well developed General Appearance ED: well developed and NAD HEENT HEENT Narrative: I see no malagon abrasions or lesions. He does have an area on the top of the head toward the right that has some slight hypersensitivity. But I see no skin changes or vesicles. Tapping over the frontal nerve occipital nerve does not seem to reproduce this. No temporal artery tenderness. Negative for trauma Eyes PERRL and EOMs intact bilaterally Neck no lymphadenopathy, supple and no JVD Neck Narrative: No meningismus. Chest Wall inspection of chest normal Resp normal respiratory effort and clear to auscultation bilaterally Effort and Inspection: Negative for pain with movement Auscultation: Negative for rales, rhonchi or wheezes Cardio regular rate and regular rhythm GI normal to inspection, nondistended, normoactive bowel sounds and non-tender Palpation: soft Back/Spine no CVA tenderness Neuro oriented x3, CN's II-XII intact bilaterally and no sensory deficits noted Neuro Narrative: NIH 0. Sensorium / Orientation: alert; Negative for orientation impaired, lethargic or stuporous Motor Exam: strength 5/5 throughout Psych mental status grossly normal Skin no rashes or lesions noted MDM MDM MDM Narrative Medical decision making narrative: Patient CT shows no acute process. Patient states that what bothers it the most is actually just even light touch on the scalp. He states if he brushes his hair or touches the area it seems to burn. I do not think this represents intracranial process. I think this is likely neurologic causing a scalp dysesthesia. He has had just minor trauma to the area from his glasses as previously listed. He does not use any hair dyes or chemicals. He does not blow dry the hair. He has no other injury. He also has noted a couple times if he turns his head quickly he will get the pain which makes 1 think that this could be radicular. I do not think any specific treatment will benefit this at this time. He will follow-up with his physician. He may need further evaluation. I do not think his symptoms justify gabapentin or similar meds at this point. If he develops rashes neurologic symptoms or any other complaints he should return. Radiography Diagnostic Testing: Clinical Impression(s) from Imaging Studies Brain CT 03/02/21 01:23 IMPRESSION: Negative head/brain CT without intravenous contrast. Electronically Signed: Roberto Vidales MD at 1:53 EST Tel , Service support , Discharge Plan Triage Chief Complaint: General Illness ED Provider: Nicola Murry Dx/Rx/DC Orders Clinical Impression: Dysesthesia of scalp Instructions: ED Radiculopathy, Cervical Prescriptions: No Action sertraline 100 mg tablet 50 mg PO DAILY RF: 0 losartan 25 mg tablet 25 mg PO DAILY Qty: 90 RF: 3 mesalamine 1.2 GM tablet 2.4 g PO DAILY RF: 0 metoprolol succinate 50 mg tablet extended release 24 hr 50 mg PO DAILY RF: 0 amlodipine 10 mg tablet 10 mg PO DAILY Qty: 30 RF: 11 potassium chloride 10 mEq capsule, extended release 10 meq PO DAILY Qty: 30 RF: 11 Primary Care Provider: Carlos Alberto Anthony Referrals: Carlos Alberto Anthony DO [Primary Care Provider] - As soon as possible Disposition Disposition: Home, Self Care
[2021-03-02 02:25] VITALS: RESP 17; TEMP 36.7; O2SAT 98
== END 2021-03-02 02:27 | disposition home or self-care (01) ==
PROVIDERS: Emergency Provider Emergency Medicine; PCP Family Medicine; Visit Provider Emergency Medicine
DX: R20.8 Other disturbances of skin sensation (principal); K51.90 Ulcerative colitis, unspecified, without complications; I25.10 Atherosclerotic heart disease of native coronary artery without angina pectoris; I10 Essential (primary) hypertension; I45.10 Unspecified right bundle-branch block; Z79.899 Other long term (current) drug therapy
CPT/HCPCS: 70450; 99282; A4216

== ENCOUNTER 2021-03-30 08:29 | Outpatient (CLI) | payer OTHER, SELFPAY | END 2021-03-30 23:59 | disposition home or self-care (01) | LOC: PSN 08:30 | PROVIDERS: PCP Family Medicine; Referring Provider Physician Assistant Medical; Visit Provider Physician Assistant Medical | DX: I47.1 Supraventricular tachycardia (principal); I45.10 Unspecified right bundle-branch block; I49.3 Ventricular premature depolarization; I10 Essential (primary) hypertension | CPT/HCPCS: 93225; 93226 ==

== ENCOUNTER → 2021-07-27 | Outpatient (CLI) | payer OTHER, SELFPAY ==
[2021-07-27 09:26] LABS: Anion Gap 6 (5-15); BUN 17 mg/dL (7-18); BUN/Creat Ratio 18.2 RATIO (10-20); Calcium,Total 8.9 mg/dL (8.5-10.1); Chloride 107 mmol/L (98-107); Creatinine, Serum 0.93 mg/dL (0.70-1.30); EST Glomerular Filtration Rate 90 mL/min (>60); Est Glom Filt Rate - Afr Amer 109 mL/min (>60); Glucose 96 mg/dL (74-106); Potassium 3.7 mmol/L (3.5-5.1); Sodium Level 141 mmol/L (136-145)
== END | disposition home or self-care (01) ==
LOC: LAB 07:08
PROVIDERS: PCP Family Medicine; Referring Provider Physician Assistant Medical; Visit Provider Physician Assistant Medical
DX: I10 Essential (primary) hypertension (principal)
CPT/HCPCS: 36415; 80048

== ENCOUNTER → 2021-11-18 | Outpatient (CLI) | payer OTHER, SELFPAY ==
[2021-11-18 12:59] LABS: Hematocrit 47.1 % (40-54); Hemoglobin 15.6 g/dL (13.0-16.5); Mean Corp Hgb Conc 33.1 g/dL (32-36); Mean Corpuscular Hgb 30.1 pg (27.0-32.0); Mean Corpuscular Volume 90.9 fL (80-94); Mean Platelet Vol. 10.5 fl (6.2-12.0); Platelet Count 317 K/mm3 (150-450); RBC Distribution Width CV 14.7 % (11.6-14.6); RBC Distribution Width SD 49.6 fl (35.1-43.9); Red Blood Count 5.18 M/mm3 (4.6-6.2); White Blood Count 8.3 K/mm3 (4.4-11.0)
[2021-11-18 13:48] LABS: Anion Gap 5 (5-15); BUN 14 mg/dL (7-18); BUN/Creat Ratio 13.2 RATIO (10-20); Chloride 105 mmol/L (98-107); Creatinine, Serum 1.06 mg/dL (0.70-1.30); EST Glomerular Filtration Rate 78 mL/min (>60); Est Glom Filt Rate - Afr Amer 94 mL/min (>60); Glucose 112 mg/dL (74-106); Magnesium 2.1 mg/dL (1.6-2.6); Potassium 3.8 mmol/L (3.5-5.1); Sodium Level 139 mmol/L (136-145)
== END | disposition home or self-care (01) ==
LOC: LAB 12:43
PROVIDERS: PCP Family Medicine; Visit Provider Internal Medicine Cardiovascular Disease
DX: R25.2 Cramp and spasm (principal); R20.2 Paresthesia of skin
CPT/HCPCS: 36415; 80048; 83735; 85027

== ENCOUNTER → 2021-11-24 | Outpatient (CLI) | payer OTHER, SELFPAY ==
--- NOTE | 2021-11-24 11:44 | STRESSREP ---
Stress Test Report His myocardial perfusion stress test. 51-year-old male with a history of cardiac dysrhythmia. Stress protocol: Resting EKG demonstrates normal sinus rhythm with a rate of 65 bpm a right bundle branch block is noted. The patient exercised according to regular Jai protocol for a total duration of 8 minutes and 30 seconds. The maximum heart rate attained was 157 bpm which was 94% of max impacted heart rate the maximum workload was 10.1 metabolic equivalents. The patient maintained sinus rhythm throughout the recording. At rest there were no ST or T wave changes noted suggest ischemia and at peak exercise upsloping ST changes were noted we did not meet the criteria for ischemia the test was terminated due to the target heart rate being achieved. No clinical angina was noted the peak blood pressure was 190/90 mmHg. Myocardial perfusion protocol. 12.0 mCi of technetium 99m sestamibi was injected at rest. The patient exercised according to regular Jai protocol and at peak exercise 34.8 mCi of technetium 99m sestamibi was injected stress images were obtained stress and rest images were reconstructed and compared in the short axis vertical long and horizontal long axis. Gated images were also obtained for Perfusion SPECT analysis: Review of the stress images demonstrate normal uptake of tracer noted in all areas of the myocardium. The resting images similar demonstrate normal uptake of tracer noted in all areas of the myocardium. There is significant GI attenuation artifact noted. No obvious reversibility is noted to suggest ischemia. Gated SPECT analysis: The gated ejection fraction is 61%. Conclusion: Normal exercise myocardial perfusion stress test at a high workload. Preserved ejection fraction.
== END | disposition home or self-care (01) ==
PROVIDERS: PCP Family Medicine; Referring Provider Internal Medicine Cardiovascular Disease; Visit Provider Internal Medicine Cardiovascular Disease
DX: I20.8 Other forms of angina pectoris (principal); M79.622 Pain in left upper arm; R07.9 Chest pain, unspecified; I25.10 Atherosclerotic heart disease of native coronary artery without angina pectoris; I49.3 Ventricular premature depolarization
CPT/HCPCS: 78452; 93017; A9500; A4216

== ENCOUNTER → 2022-01-04 | Outpatient (CLI) | payer OTHER, SELFPAY ==
--- NOTE | 2022-01-04 17:30 | MRI_ITS ---
STUDY: MRI LEFT SHOULDER REASON FOR EXAM: Male, 51 years old. Tripped over cable and landed with arm towards back. Swelling and sharp pain. Evaluate for contusion. TECHNIQUE: Standardized fat and water weighted pulse sequences were obtained in all 3 orthogonal planes. COMPARISON: Chest x-ray dated December 06, 2020. FINDINGS: Supraspinatus tendinosis with a focal partial articular surface tear of the anterior fibers measuring approximately 6 mm in width and occupying approximately 40% of the tendon thickness (coronal series 4 images 11-15). Infraspinatus tendinosis with articular surface fraying without a full-thickness tear (coronal series 4 images 7-10). Subscapularis tendinosis with thickening and increased signal intensity without a full-thickness tear (axial series 2 images 7-14). Normal teres minor tendon. Normal supraspinatus muscle. Normal infraspinatus muscle. Normal subscapularis muscle. Normal teres minor muscle. Small glenohumeral joint effusion. Bone contusion of the medial aspect of the humeral head adjacent to the glenohumeral joint. Complex tear of the superior labrum. Displaced tear of the posterior and inferior glenoid labrum (axial series 2 images a-17, coronal series 4 images 6-20). Normal biceps labral complex. Normal intracapsular long biceps tendon. Normal capsulo- ligamentous complex. Normal rotator interval. Marked acromioclavicular joint hypertrophy with narrowing of the subacromial space. AC joint effusion (coronal series 5 images 17-20, sagittal series 6 images 3-T10). There is a Type II morphology (curved), with a neutral orientation. There is no subacromial-subdeltoid bursal fluid. Normal visualized coracohumeral and coracoacromial ligaments. Normal quadrilateral space. Normal axillary space. Normal deltoid muscle. Normal trapezius muscle. MRI/Upper Ext Joint Only(Routine) IMPRESSION: Supraspinatus tendinosis with a focal partial articular surface tear of the anterior fibers as described. No full thickness tear. Infraspinatus tendinosis without a full-thickness tear. Subscapularis tendinosis with thickening and increased signal intensity without a full-thickness tear. Bone contusion of the medial aspect of the humeral head adjacent to the glenohumeral joint. Tears of the superior glenoid labrum and the posterior and inferior glenoid labrum as described. Marked acromioclavicular joint hypertrophy with narrowing of the subacromial space. Large AC joint effusion. Small glenohumeral joint effusion. Electronically Signed: Austin Macedo, at 9:55 EST ,
== END | disposition home or self-care (01) ==
LOC: MRI 17:05
PROVIDERS: PCP Family Medicine; Visit Provider Physician Assistant
DX: S40.012A Contusion of left shoulder, initial encounter (principal)
CPT/HCPCS: 73221

== ENCOUNTER → 2023-04-23 | Outpatient (CLI) | payer BC, SELFPAY ==
[2023-04-23 10:23] LABS: Absolute Lymphocyte Count 3.64 X10^3/uL (0.83-4.51); Absolute Neutrophil Count 3.2 X10^3/uL (2.0-7.7); Basophil% 1.3 % (0-1); Eosinophil# 0.26 X10^3/uL; Eosinophils% 3.3 % (0-5); Hematocrit 46.3 % (40-54); Hemoglobin 15.3 g/dL (13.0-16.5); Lymphocyte # 3.64 X10^3/ul (0.83-4.51); Lymphocyte % 45.7 % (19-41); Mean Corpuscular Volume 90.8 fL (80-94); Monocyte# 0.76 X10^3/uL; Monocyte% 9.5 % (0-10); NRBC Flagged by Analyzer 0 % (0-5); Neutrophil % 40.1 % (47-70); Platelet Count 289 K/mm3 (150-450); RBC Distribution Width CV 15.3 % (11.6-14.6); RBC Distribution Width SD 50.8 fl (35.1-43.9)
[2023-04-23 11:53] LABS: ALB/GLOB Ratio 0.8 RATIO (0.9-2.4); AST(SGOT) 61 U/L (15-37); Alanine Aminotransfer ALT/SGPT 207 U/L (16-61); Albumin, Serum 3.5 g/dL (3.2-5.0); Alkaline Phosphatase 171 U/L (45-117); Anion Gap 8 (5-15); BUN 15 mg/dL (7-18); BUN/Creat Ratio 14.3 RATIO (10-20); Calcium,Total 8.9 mg/dL (8.5-10.1); Chloride 108 mmol/L (98-107); Creatinine, Serum 1.05 mg/dL (0.70-1.30); EST Glomerular Filtration Rate 78 mL/min (>60); Est Glom Filt Rate - Afr Amer 94 mL/min (>60); Globulin 4.4 g/dL (2.2-4.2); Glucose 98 mg/dL (74-106); Magnesium 2.1 mg/dL (1.6-2.6); Potassium 3.8 mmol/L (3.5-5.1); Protein, Total 7.9 g/dL (6.4-8.2); Sodium Level 140 mmol/L (136-145); Thyroid Stim Hormone (TSH) 1.18 uIU/mL (0.358-3.74)
[2023-04-23 14:39] LABS: BNP,B-Type NATRIURETIC PEPTIDE 27.8 pg/mL (0-100)
== END | disposition home or self-care (01) ==
LOC: LAB 10:02
PROVIDERS: PCP Family Medicine; Visit Provider Nurse Practitioner Family
DX: I25.118 Atherosclerotic heart disease of native coronary artery with other forms of angina pectoris (principal); M79.622 Pain in left upper arm; R07.9 Chest pain, unspecified; I49.3 Ventricular premature depolarization; I47.10 Supraventricular tachycardia, unspecified; R06.09 Other forms of dyspnea
CPT/HCPCS: 36415; 80053; 83735; 83880; 84443; 85025

== ENCOUNTER → 2023-05-03 | Outpatient (CLI) | payer BC, SELFPAY ==
[2023-05-03 11:36] LABS: Prothrombin Time (Protime)PT. 12.7 SECONDS (11.7-14.9)
[2023-05-03 11:41] LABS: GGTP 490 U/L (15-85); Iron 118 ug/dL (65-175)
[2023-05-04 16:09] LABS: Anti-Mitochondrial AB <20.0 Units (0.0-20.0); Anti-Smooth Muscle ABS 8 Units (0-19)
== END | disposition home or self-care (01) ==
LOC: LAB 10:57
PROVIDERS: PCP Family Medicine; Referring Provider Family Medicine; Visit Provider Family Medicine
DX: R74.8 Abnormal levels of other serum enzymes (principal)
CPT/HCPCS: 36415; 82977; 83516; 83540; 85610

== ENCOUNTER → 2023-06-13 | Outpatient (CLI) | payer BC, SELFPAY ==
[2023-06-13 10:21] LABS: ALB/GLOB Ratio 0.8 RATIO (0.9-2.4); AST(SGOT) 72 U/L (15-37); Alanine Aminotransfer ALT/SGPT 169 U/L (16-61); Albumin, Serum 3.6 g/dL (3.2-5.0); Alkaline Phosphatase 185 U/L (45-117); Anion Gap 6 (5-15); BUN 12 mg/dL (7-18); BUN/Creat Ratio 12.7 RATIO (10-20); Chloride 106 mmol/L (98-107); Creatinine, Serum 0.94 mg/dL (0.70-1.30); EST Glomerular Filtration Rate 88 mL/min (>60); Est Glom Filt Rate - Afr Amer 107 mL/min (>60); Globulin 4.4 g/dL (2.2-4.2); Glucose 106 mg/dL (74-106); Sodium Level 137 mmol/L (136-145)
--- NOTE | 2023-06-13 16:57 | STRESSREP ---
Stress Test Report Exercise myocardial perfusion stress test. 53-year-old man with a history of chest pain Stress protocol: Resting EKG demonstrates normal sinus rhythm with a right bundle branch block and a rate of 66 bpm resting blood pressure is 130/88 mmHg. The patient exercised according to the regular Jai protocol for a total duration of 8 minutes and 31 seconds attaining a maximum heart rate of 157 bpm which was 95% of maximum predicted heart rate; the maximum workload was 10.1 metabolic equivalents. At rest there were no ST or T wave changes noted to suggest ischemia and at peak exercise upsloping ST changes only were noted which did not meet the criteria for ischemia. No clinical angina was noted the test was terminated due to the target heart rate being achieved/fatigue. The peak blood pressure was 166/82 mmHg. Rate-pressure product was 21,000. Myocardial perfusion protocol. 14.1 mCi of technetium 99m sestamibi was injected at rest. The patient exercised according to regular Jai protocol for total duration of 8 minutes and 31 seconds and at peak exercise 45 mCi of technetium 99m sestamibi was injected stress images were obtained stress and rest images were reconstructed in comparing the short axis vertical long and horizontal long axis. Gated images were also obtained. Perfusion SPECT analysis: Review of the stress images demonstrate normal uptake of tracer noted in all areas of the myocardium. The resting images similarly demonstrate normal uptake of tracer noted in all areas of the myocardium. No areas of reversibility are noted to suggest ischemia no previous infarct was noted. Gated SPECT analysis: The gated ejection fraction is 55%. Conclusion: Normal exercise myocardial perfusion stress test at a high workload Preserved ejection fraction.
[2023-06-14 05:07] LABS: HEPATITIS B SURFACE AG Negative (Negative); Hep C Antibodies Non Reactive (Non Reactive); Hepatitis A IgM Antibody Negative (Negative); Hepatitis B Core AB IgM Negative (Negative)
[2023-06-14 16:09] LABS: ANTINUCLEAR ANTIBODIES DIRECT Negative (Negative)
== END | disposition home or self-care (01) ==
PROVIDERS: PCP Family Medicine; Referring Provider Nurse Practitioner Family; Visit Provider Nurse Practitioner Family
DX: R74.8 Abnormal levels of other serum enzymes (principal); I20.89 Other forms of angina pectoris; M79.622 Pain in left upper arm; R07.9 Chest pain, unspecified; R53.83 Other fatigue; I49.3 Ventricular premature depolarization; R55 Syncope and collapse
CPT/HCPCS: 36415; 78452; 80053; 80074; 86038; 93017; A9500; A4216

== ENCOUNTER → 2024-01-02 | Outpatient (CLI) | payer BC, SELFPAY ==
[2024-01-02 08:45] LABS: ALB/GLOB Ratio 0.8 RATIO (0.9-2.4); AST(SGOT) 86 U/L (15-37); Alanine Aminotransfer ALT/SGPT 134 U/L (16-61); Albumin, Serum 3.7 g/dL (3.2-5.0); Alkaline Phosphatase 305 U/L (45-117); Anion Gap 5 (5-15); BUN 13 mg/dL (7-18); BUN/Creat Ratio 12.7 RATIO (10-20); Calcium,Total 9.4 mg/dL (8.5-10.1); Chloride 107 mmol/L (98-107); Creatinine, Serum 1.02 mg/dL (0.70-1.30); EST Glomerular Filtration Rate 80 mL/min (>60); Est Glom Filt Rate - Afr Amer 97 mL/min (>60); Globulin 4.7 g/dL (2.2-4.2); Glucose 99 mg/dL (74-106); Potassium 3.9 mmol/L (3.5-5.1); Protein, Total 8.4 g/dL (6.4-8.2); Sodium Level 139 mmol/L (136-145)
== END | disposition home or self-care (01) ==
LOC: LAB 07:13
PROVIDERS: PCP Family Medicine; Referring Provider Family Medicine; Visit Provider Family Medicine
DX: R74.8 Abnormal levels of other serum enzymes (principal)
CPT/HCPCS: 36415; 80053

== ENCOUNTER 2024-03-03 04:53 | Inpatient (IN) | payer BC, SELFPAY ==
[2024-03-03] VITALS (10 sets, daily range): BP systolic 123–150; BP diastolic 65–97; PULSE 60–84; RESP 14–20; TEMP 36.4–36.9; O2SAT 96–100; BMI 30.5; BMI 27.1
--- NOTE | 2024-03-03 05:08 | CT_ITS ---
EXAM: CT Abdomen And Pelvis W/ Contrast Injection HISTORY: abd pain TECHNIQUE: Routine protocol CT abdomen pelvis. IV Contrast: IV 100mL Isovue-370 . Oral Contrast: without. Sagittal and coronal images were reconstructed. RADIATION DOSAGE (If Supplied By Facility): CTDIvol = ( 17.05 ) mGy, DLP = ( 1219.73 ) mGycm Individualized dose optimization techniques were used for this CT. COMPARISON: CT abdomen pelvis 10/21/2014. LIMITATIONS: None. FINDINGS: LOWER CHEST: Dependent atelectasis in the lung bases. LIVER: A few small cysts. GALLBLADDER/BILE DUCTS: Gallbladder is distended with thickened wall mild adjacent stranding. No calcified gallstones identified. Prominent wall of the common bile duct to the grant hepatis. There is suggestion of intrahepatic biliary dilatation. The common bile duct is not dilated. PANCREAS: Unremarkable. SPLEEN: Small size/atrophic.. ADRENAL GLANDS: Unremarkable. KIDNEYS / URETERS: Unremarkable. BOWEL / MESENTERY: Unremarkable. No bowel obstruction. Mildly enlarged lymph nodes at the grant hepatis and about the celiac axis. APPENDIX: Not identified. PERITONEUM: No free air. No free fluid. VESSELS: Abdominal aorta is normal caliber. RETROPERITONEUM: Unremarkable. REPRODUCTIVE ORGANS: Unremarkable. BLADDER: Unremarkable. ABDOMINAL WALL: Small bilateral inguinal hernias containing only fat, no bowel. BONES: No acute abnormality. Bilateral pars defects at L5 with grade 1 spondylolisthesis L5-S1. Degenerative changes in lumbar spine. OTHER: None. CT/Abdomen/Pelvis W IV Cont ONLY IMPRESSION: Findings suggest acute cholecystitis without definite calcified gallstones identified. Prominent wall of the common bile duct and intrahepatic biliary dilatation. Findings may be secondary inflammatory, or other inflammatory process such as cholangitis. Nondilated common bile duct. Choledocholithiasis less likely but not entirely excluded. Ultrasound and possibly MRI/MRCP may be helpful. . Electronically Signed: Vanessa Fry MD at 7:00 EST ,
--- NOTE | 2024-03-03 05:09 | EDS_ITS ---
HPI History of Present Illness Chief Complaint: Abd Pain Informant: patient and family Narrative Narrative: Patient is a 53-year-old male with past medical history of hypertension CAD and ulcerative colitis. He states that he ate dinner last night as he normally does and then a few hours later began with pain in the midepigastric abdominal region. He states after the pain developed he had a bout of vomiting. He reports that there is been no bouts of constipation and he denies any loose stool or diarrhea. He denies any fevers or chills or known sick contacts. He states his also colitis is typically well-controlled with his daily medication. However the pain has not improved over the last 4 hours and secondary to his he presents for evaluation [facility] Medical History Cough History of tilt table evaluation (07/2014) Syncope Hypokalemia Nonobstructive atherosclerosis of coronary artery Right bundle branch block (RBBB) Essential (primary) hypertension Paroxysmal supraventricular tachycardia Ulcerative colitis Home Medications ?Medication ?Instructions ?Recorded ?Last Taken ?Type mesalamine 1.2 gram tablet,delayed 2.4 g PO DAILY colitis 10/21/14 06/09/19 History release sertraline 100 mg tablet 50 mg PO DAILY 02/17/20 Unknown History amlodipine 5 mg tablet 5 mg PO DAILY #90 tabs 01/25/23 Unknown Rx losartan 25 mg tablet 25 mg PO DAILY #90 tabs 01/25/23 Unknown Rx metoprolol succinate 50 mg 50 mg PO DAILY #90 tabs 01/25/23 Unknown Rx tablet,extended release 24 hr potassium chloride 10 mEq 10 meq PO DAILY #90 caps 01/25/23 Unknown Rx capsule,extended release Allergy/AdvReac Type Severity Reaction Status Date / Time metoprolol (From Lopressor) Allergy Severe severe Verified 01/25/23 11:11 lightheadedness, dizziness lidocaine Allergy THROAT Verified 01/25/23 11:11 SWELLING morphine Allergy Other Verified 01/25/23 11:11 soap Allergy Hives Verified 01/25/23 11:11 MAGIC MOUTH WASH Allergy throat Uncoded 01/25/23 11:11 swelling Family History Father CAD (coronary artery disease) Mother Heart disease Brother Heart disease Surgical History History of appendectomy History of kidney surgery History of left heart catheterization (08/28/14) History of nasal polypectomy History of open reduction and internal fixation (ORIF) procedure History of radiofrequency ablation procedure for cardiac arrhythmia (04/28/14) History of surgical removal of testicle History of tonsillectomy Social History Smoking Status: Never smoker alcohol intake: never substance use type: does not use caffeine: Yes Type: tea Number of servings: 3 ROS ROS ED Constitutional Constitutional ED: Denies chills or fever(s) Eyes Eyes: Denies blurry vision or change in vision ENT ENT ED: Denies sore throat Cardiovascular Cardiovascular: Denies chest pain Respiratory/Chest Respiratory/Chest: Denies cough or dyspnea Gastrointestinal Gastrointestinal: Reports abdominal pain, nausea and vomiting; Denies constipation, diarrhea or melena Genitourinary Genitourinary ED: Denies dysuria or hematuria Musculoskeletal Musculoskeletal: Denies back pain or myalgias Integumentary Denies rash Neurologic Neurologic: Denies headache(s) Hematologic/Lymphatic Hematologic/Lymphatic: Denies easy bleeding or easy bruising EXAM Physical Exam Const Vital Signs: 03/03/24 04:54 03/03/24 06:15 Temperature 97.5 F L Temperature Source Oral Pulse Rate 74 64 Respiratory Rate 20 H 14 Blood Pressure 150/97 H 135/84 H Blood Pressure Mean 114 101 Pulse Ox 97 96 Oxygen Delivery Method Room Air Room Air Positive well nourished and well developed General Appearance ED: well developed; Negative for pallor HEENT Reports moist mucous membranes HEENT Narrative: No tongue or lip swelling no oral lesions no airway edema or compromise No secondary findings in the posterior pharynx to suggest infection Eyes PERRL and EOMs intact bilaterally General Eye ED: Negative for scleral icterus Neck supple Neck Narrative: No nuchal rigidity or meningeal signs noted Resp normal respiratory effort and clear to auscultation bilaterally Cardio regular rate and regular rhythm Rate: other Other Details: Heart is regular rate and rhythm without murmurs rubs or gallops Radial and carotid pulses are equal and symmetric GI non-distended and no masses GI Narrative: Abdomen is soft and nondistended with hyperactive bowel sounds Patient has pain with palpation in the right upper quadrant and midepigastric region. It is greatest in the midepigastric region and there is mild guarding at this site. Negative Alcaraz sign. No increased tympany. No pulsatile mass or fluid wave Auscultation: hyperactive bowel sounds Palpation: soft Extremity normal to inspection Neuro oriented x3, CN's II-XII intact bilaterally and no sensory deficits noted Sensorium / Orientation: alert Motor Exam: strength 5/5 throughout Psych mental status grossly normal Skin no rashes or lesions noted General Skin Exam: Negative for jaundice or pallor MDM MDM MDM Narrative Medical decision making narrative: Patient presented to the ER mildly hypertensive but has a past medical history of this and otherwise with stable vitals. He reported pain in the right upper quadrant midepigastric region after eating. Differential diagnosis is for gastritis versus pancreatitis versus biliary colic versus acute cholecystitis versus ulcerative colitis flare versus viral stomach infection such as norovirus or rotavirus. Secondary to his history and exam basic blood work was obtained as well as a CT scan of the abdomen and pelvis as I cannot perform an ultrasound at this time at night. Blood work showed mild leukocytosis at 12.4 but no lactic acidosis. The patient's lipase is mildly elevated concerning for early pancreatitis or gallstone pancreatitis. There is also continued elevation to the patient's liver enzymes higher than his last set in the chart from January 02, 2024 also concerning for biliary dysfunction. The patient CT scan did show gallbladder distention and surrounding pericholecystic fluid concerning for acute cholecystitis. However the radiologist did recommend an ultrasound be obt ained for a better evaluation of the gallbladder. Therefore this time the ultrasound was ordered. On repeat evaluation the patient is resting comfortably his pain has improved with medication provided. Patient will most likely need evaluated by general surgery once the ultrasound has been resulted. Patient and family were informed of the need for further studies and potential surgical consultation and they are agreeable with the plan of care. At this time as the ultrasound and surgical consultation are still pending the case to be signed out to the day physician Dr. Duarte History & Record Review Discussion w/independent historian: Patient and Family Lab Data Attestation: I reviewed the patient's lab results. Labs: Laboratory Results - last 24 hr 03/03/24 05:14 WBC 12.4 H RBC 4.89 Hgb 15.2 Hct 45.6 MCV 93.3 MCH 31.1 MCHC 33.3 RDW Std Deviation 51.8 H RDW Coeff of Justine 15.1 H Plt Count 294 MPV 11.6 Immature Gran % (Auto) 0.200 Neut % (Auto) 70.2 H Lymph % (Auto) 21.1 [place] % (Auto) 6.9 Eos % (Auto) 0.9 Baso % (Auto) 0.7 Absolute Neuts (auto) 8.7 H Absolute Lymphs (auto) 2.62 Nucleated RBC % 0 Reactive Lymphocytes 2+ Stomatocytes 1+ Sodium 135 L Potassium 3.7 Chloride 106 Carbon Dioxide 25.0 Anion Gap 4 L BUN 17 Creatinine 0.92 Estim Creat Clear Calc 109.00 Est GFR (MDRD) Af Amer 109 Est GFR (MDRD) Non-Af 90 BUN/Creatinine Ratio 18.5 Glucose 135 H Lactic Acid 1.1 Calcium 8.9 Total Bilirubin 0.70 Direct Bilirubin 0.42 H AST 117 H ALT 229 H Alkaline Phosphatase 431 H Total Protein 7.9 Albumin 3.2 Globulin 4.7 H Lipase 141 H Radiography Diagnostic Testing: Clinical Impression(s) from Imaging Studies Abdomen/Pelvis CT 03/03/24 05:08 IMPRESSION: Findings suggest acute cholecystitis without definite calcified gallstones identified. Prominent wall of the common bile duct and intrahepatic biliary dilatation. Findings may be secondary inflammatory, or other inflammatory process such as cholangitis. Nondilated common bile duct. Choledocholithiasis less likely but not entirely excluded. Ultrasound and possibly MRI/MRCP may be helpful. . Electronically Signed: Vanessa Fry MD at 7:00 EST , Discharge Plan Triage Chief Complaint: Abd Pain ED Provider: Roberto Francis Dx/Rx/DC Orders Clinical Impression: Acute cholecystitis, Essential (primary) hypertension, Hx of ulcerative colitis Prescriptions: No Action sertraline 100 mg tablet 50 mg PO DAILY Patient Comments: TAKE 1 TABLET BY MOUTH EVERY DAY amlodipine 5 mg tablet 5 mg PO DAILY Qty: 90 3RF losartan 25 mg tablet 25 mg PO DAILY Qty: 90 3RF metoprolol succinate 50 mg tablet extended release 24 hr 50 mg PO DAILY Qty: 90 3RF potassium chloride 10 mEq capsule, extended release 10 meq PO DAILY Qty: 90 3RF mesalamine 1.2 GM tablet 2.4 g PO DAILY Patient Comments: ulcerative colitis Primary Care Provider: Carlos Alberto Anthony Referrals: Carlos Alberto Anthony DO [Primary Care Provider] - Print Language: Citizen Of [place]
[2024-03-03] MEDS: HYDROmorphone 1 MG/ML Syringe IV ×2 (05:15→12:30)
[2024-03-03] MEDS: 0.9% Normal Saline (1000mL) 1,000 ML 999 ML IV (05:15)
[2024-03-03] MEDS: Ondansetron 4 MG/2 ML Vial IV ×2 (05:15→12:19)
[2024-03-03 05:22] LABS: Absolute Lymphocyte Count 2.62 X10^3/uL (0.83-4.51); Absolute Neutrophil Count 8.7 X10^3/uL (2.0-7.7); Basophil# 0.09 X10^3/uL; Basophil% 0.7 % (0-1); Eosinophil# 0.11 X10^3/uL; Eosinophils% 0.9 % (0-5); Hematocrit 45.6 % (40-54); Hemoglobin 15.2 g/dL (13.0-16.5); Lymphocyte # 2.62 X10^3/ul (0.83-4.51); Lymphocyte % 21.1 % (19-41); Mean Corp Hgb Conc 33.3 g/dL (32-36); Mean Corpuscular Hgb 31.1 pg (27.0-32.0); Mean Corpuscular Volume 93.3 fL (80-94); Mean Platelet Vol. 11.6 fl (6.2-12.0); Monocyte# 0.86 X10^3/uL; Monocyte% 6.9 % (0-10); NRBC Flagged by Analyzer 0 % (0-5); Neutrophil % 70.2 % (47-70); POSITIVE MORPHOLOGY YES; Platelet Count 294 K/mm3 (150-450); RBC Distribution Width CV 15.1 % (11.6-14.6); RBC Distribution Width SD 51.8 fl (35.1-43.9); Red Blood Count 4.89 M/mm3 (4.6-6.2); White Blood Count 12.4 K/mm3 (4.4-11.0)
[2024-03-03 05:27] LABS: Differential Indicated SCAN CRITERIA MET
[2024-03-03 05:39] LABS: AST(SGOT) 117 U/L (15-37); Alanine Aminotransfer ALT/SGPT 229 U/L (16-61); Albumin, Serum 3.2 g/dL (3.2-5.0); Alkaline Phosphatase 431 U/L (45-117); Anion Gap 4 (5-15); BUN 17 mg/dL (7-18); BUN/Creat Ratio 18.5 RATIO (10-20); Bilirubin, Direct 0.42 mg/dL (0.00-0.30); Calcium,Total 8.9 mg/dL (8.5-10.1); Chloride 106 mmol/L (98-107); Creatinine, Serum 0.92 mg/dL (0.70-1.30); EST Glomerular Filtration Rate 90 mL/min (>60); Est Glom Filt Rate - Afr Amer 109 mL/min (>60); Globulin 4.7 g/dL (2.2-4.2); Glucose 135 mg/dL (74-106); Lipase 141 U/L (13-75); Potassium 3.7 mmol/L (3.5-5.1); Protein, Total 7.9 g/dL (6.4-8.2); Sodium Level 135 mmol/L (136-145)
[2024-03-03 05:47] LABS: Lactic Acid 1.1 mmol/L (0.4-1.9)
[2024-03-03 05:52] LABS: Stomatocyte 1+
[2024-03-03 05:53] LABS: Reactive Lymphocyte 2+
[2024-03-03] MEDS: HYDROmorphone 0.5 MG/0.5 ML SYRINGE IV ×2 (06:12→09:09)
--- NOTE | 2024-03-03 07:02 | US_ITS ---
STUDY: ABDOMINAL ULTRASOUND - RIGHT UPPER QUADRANT REASON FOR VISIT: Male, 53 years old ? Acute cholecystitis. Epigastric pain. TECHNIQUE: Ultrasound evaluation of the right upper quadrant was performed with real-time and static morse-scale imaging. TECHNICAL QUALITY: Adequate. COMPARISON: Comparison is made with prior CT scan abdomen and pelvis dated March 03, 2024. FINDINGS: Liver: The liver measures 17.5 cm. There is normal echogenicity of the liver. The bile ducts are within normal limits. There is hepatic color flow. The direction of portal flow is hepatopetal. There is no demonstrated mass lesion. Gallbladder: The gallbladder is mildly distended. The gallbladder wall is thickened and measures 5 mm. There is a negative sonographic Alcaraz''s sign. There is no pericholecystic fluid. There are no gallstones. Common Bile Duct (C.B.D.): The common bile duct measures 7 mm. Pancreas: Normal size of the head, body and tail of the pancreas. There is normal echogenicity of the pancreas. There is no demonstrated pancreatic mass or cyst. Right Kidney: Normal size of the right kidney. The right kidney measures 12.7 cm x 6.4 cm x 5.6 cm. Normal renal cortex. The right cortex measures 1.7 cm. There is no demonstrated renal mass or cyst. There is no right hydronephrosis. US/Gallbladder IMPRESSION: Mildly distended gallbladder with thickened gallbladder wall measuring 5 mm. Acalculous cholecystitis should BE ruled out. Correlation with the nuclear medicine hepatobiliary scan recommended. Electronically Signed: Kb Brooks MD at 8:51 EST ,
--- NOTE | 2024-03-03 07:32 | EKG12_ITS ---
Test Reason : PRE OP Blood Pressure : */* mmHG Vent. Rate : 57 BPM Atrial Rate : 57 BPM P-R Int : 158 ms QRS Dur : 154 ms QT Int : 482 ms P-R-T Axes : 65 -18 3 degrees QTcB Int : 469 ms Sinus bradycardia Right bundle branch block Abnormal ECG Confirmed by NYASIA GE, AYSHA ([id number]), legal editor MIKE JERRY ([id number]) on 03/10/2024 2:23:16 PM Referred By: Confirmed By: AYSHA MURRELL MD
[2024-03-03] MEDS: Pantoprazole Sodium 40 MG in 0.9% Normal Saline (100mL MB+) 100 ML 330 MG IV ×2 (07:50→13:07)
[2024-03-03] MEDS: Piperacil/Tazobactam 3.375 GM in 0.9% Normal Saline (50mL MB+) 50 ML IV ×3 (08:44→21:08)
--- NOTE | 2024-03-03 10:10 | PCM.HP.STD ---
Documented by User: Josefa GARCIA PA-C 03/03/24 14:07 HPI - General General Date of Admission: 03/03/24 Date of Service: 03/03/24 Chief Complaint: Epigastric Pain HPI Narrative REGULO BALDERAS, is a 53 M who presents with a 1 day history of upper abdominal pain, worse in the epigastric region. Patient states he has never had pain similar this this episode previously. Patient notes eating Spaghetti O's last night for dinner with white bread and butter and 1/2 glass sweet tea for dinner around 8 pm. He notes around 10 pm, he had a root beer float. He went to bed around 12:30 AM and woke up quickly after that with pain in the epigastric region. Patient notes he attempted to try a heating pad and NSAIDs without any relief. Patient notes having a bowel movement at around 0300 AM without any abdominal relief. He notes the pain intensified which made him nauseated and had vomiting. He notes the vomiting was clear to bilious. He notes a history of ulcerative colitis which is managed by daily mesalamine. He follows with Dr. Danielson. he notes his last colonoscopy was 2 years ago and was unremarkable according to the patient. Patient notes he has not had a U.C. flare-up for over a decade. Patient denies any alcohol use or smoking. He denies any illicit drug use. He denies any history of gastritis or peptic ulcer disease. He notes cardiac history of SVT's. he had an ablation in May of 2015 at [facility]. He notes after the ablation he started to have PVC's. He is currently on metoprolol ER daily. He follows with Dr. Villatoro yearly. He denies any previous myocardial infarction, strokes or blood clots. His abdominal surgical history includes open appendectomy 30 years ago, renal artery bypass at [facility] approximately 36 years ago. RUQ u/ demonstrated gallbladder is mildly distended. Gallbladder wall is thickened and measures 5 mm. Negative sonographic Alcaraz's sign. No pericholecystic fluid. No gallstones. CBD measures 7 mm. Labs remarkable for WBC 12.4, Hgb 15.2, Hct 45.6, Plt 294. Liver enzymes are Total bilirubin 0.70, direct bilirubin 0.42, AST 117, ALT 229, Alk Phos 431. Lipase 141. [facility] Medical History Cough History of tilt table evaluation (07/2014) Syncope Hypokalemia Nonobstructive atherosclerosis of coronary artery Right bundle branch block (RBBB) Essential (primary) hypertension Paroxysmal supraventricular tachycardia Ulcerative colitis Home Medications ?Medication ?Instructions ?Recorded ?Last Taken ?Type mesalamine 1.2 gram tablet,delayed 2.4 g PO DAILY colitis 10/21/14 06/09/19 History release sertraline 100 mg tablet 50 mg PO DAILY 02/17/20 Unknown History amlodipine 5 mg tablet 5 mg PO DAILY #90 tabs 01/25/23 Unknown Rx losartan 25 mg tablet 25 mg PO DAILY #90 tabs 01/25/23 Unknown Rx metoprolol succinate 50 mg 50 mg PO DAILY #90 tabs 01/25/23 Unknown Rx tablet,extended release 24 hr potassium chloride 10 mEq 10 meq PO DAILY #90 caps 01/25/23 Unknown Rx capsule,extended release Allergy/AdvReac Type Severity Reaction Status Date / Time metoprolol (From Lopressor) Allergy Severe severe Verified 01/25/23 11:11 lightheadedness, dizziness lidocaine Allergy THROAT Verified 01/25/23 11:11 SWELLING morphine Allergy Other Verified 01/25/23 11:11 soap Allergy Hives Verified 01/25/23 11:11 MAGIC MOUTH WASH Allergy throat Uncoded 01/25/23 11:11 swelling Family History Father CAD (coronary artery disease) Mother Heart disease Brother Heart disease Surgical History History of appendectomy History of kidney surgery History of left heart catheterization (08/28/14) History of nasal polypectomy History of open reduction and internal fixation (ORIF) procedure History of radiofrequency ablation procedure for cardiac arrhythmia (04/28/14) History of surgical removal of testicle History of tonsillectomy Social History Smoking Status: Never smoker alcohol intake: never substance use type: does not use caffeine: Yes Type: tea Number of servings: 3 ROS Constitutional Constitutional: Reports systems reviewed and no addt'l complaints, except as documented Eyes Eyes: Reports systems reviewed and no addt'l complaints, except as documented ENT HEENT: Reports systems reviewed and no addt'l complaints, except as documented Cardiovascular Cardiovascular: Reports systems reviewed and no addt'l complaints, except as documented Respiratory/Chest Respiratory/Chest: Reports systems reviewed and no addt'l complaints, except as documented Gastrointestinal Gastrointestinal: Reports systems reviewed and no addt'l complaints, except as documented Genitourinary Genitourinary: Reports systems reviewed and no addt'l complaints, except as documented Musculoskeletal Musculoskeletal: Reports systems reviewed and no addt'l complaints, except as documented Integumentary Integumentary: Reports systems reviewed and no addt'l complaints, except as documented Neurologic Neurologic: Reports systems reviewed and no addt'l complaints, except as documented Psychiatric Psychiatric: Reports systems reviewed and no addt'l complaints, except as documented Endocrine Endocrinology: Reports systems reviewed and no addt'l complaints, except as documented Hematologic/Lymphatic Hematologic/Lymphatic: Reports systems reviewed and no addt'l complaints, except as documented Allergic/Immunologic Allergic/Immunologic: Reports systems reviewed and no addt'l complaints, except as documented Vital Signs Vital Signs Vital Signs: 03/03/24 04:54 03/03/24 06:15 03/03/24 08:00 Temperature 97.5 F L Temperature Source Oral Pulse Rate 74 64 84 Respiratory Rate 20 H 14 16 Blood Pressure 150/97 H 135/84 H 123/65 H Blood Pressure Mean 114 101 84 Pulse Ox 97 96 97 Oxygen Delivery Method Room Air Room Air Weight Weight: 219 lb 2.232 oz Body Mass Index (BMI) 30.5 Physical Exam Const alert, oriented x3 and no apparent distress HEENT normocephalic and head/scalp atraumatic Eyes PERRL Neck full ROM Resp normal respiratory effort and clear to auscultation bilaterally Cardio regular rate and regular rhythm GI GI Narrative: Abdomen- soft, tenderness in the epigastric and right upper quadrant region. Positive Alcaraz's sign. Positive bowel sounds. Nicely healed incision in the right lower quadrant and right lateral abdomen/flank region. no CVA tenderness Back/Spine no CVA tenderness Extremity normal to inspection Skin no rashes or lesions noted Neuro no focal motor deficits and no sensory deficits noted Psych mental status grossly normal and thought process normal Results Lab / Micro Data 03/03/24 05:14 03/03/24 05:14 Labs: Laboratory Results - last 24 hr 03/03/24 05:14: WBC 12.4 H, RBC 4.89, Hgb 15.2, Hct 45.6, MCV 93.3, MCH 31.1, MCHC 33.3, RDW Std Deviation 51.8 H, RDW Coeff of Justine 15.1 H, Plt Count 294, MPV 11.6, Immature Gran % (Auto) 0.200, Neut % (Auto) 70.2 H, Lymph % (Auto) 21.1, [place] % (Auto) 6.9, Eos % (Auto) 0.9, Baso % (Auto) 0.7, Absolute Neuts (auto) 8.7 H, Absolute Lymphs (auto) 2.62, Nucleated RBC % 0, Reactive Lymphocytes 2+, Stomatocytes 1+, Sodium 135 L, Potassium 3.7, Chloride 106, Carbon Dioxide 25.0, Anion Gap 4 L, BUN 17, Creatinine 0.92, Estim Creat Clear Calc 109.00, Est GFR (MDRD) Af Amer 109, Est GFR (MDRD) Non-Af 90, BUN/Creatinine Ratio 18.5, Glucose 135 H, Lactic Acid 1.1, Calcium 8.9, Total Bilirubin 0.70, Direct Bilirubin 0.42 H, AST 117 H, ALT 229 H, Alkaline Phosphatase 431 H, Total Protein 7.9, Albumin 3.2, Globulin 4.7 H, Lipase 141 H Imaging Radiology Impression Abdomen/Pelvis CT 03/03/24 05:08 IMPRESSION: Findings suggest acute cholecystitis without definite calcified gallstones identified. Prominent wall of the common bile duct and intrahepatic biliary dilatation. Findings may be secondary inflammatory, or other inflammatory process such as cholangitis. Nondilated common bile duct. Choledocholithiasis less likely but not entirely excluded. Ultrasound and possibly MRI/MRCP may be helpful. . Electronically Signed: Vanessa Fry MD at 7:00 EST , Gallbladder Ultrasound 03/03/24 07:02 IMPRESSION: Mildly distended gallbladder with thickened gallbladder wall measuring 5 mm. Acalculous cholecystitis should BE ruled out. Correlation with the nuclear medicine hepatobiliary scan recommended. Electronically Signed: Kb Brooks MD at 8:51 EST , Assessment & Plan Assessment/Plan (1) Acute acalculous cholecystitis: PLAN: I have been asked to evaluate this patient in conjunction with Dr. Franklin. She will independently evaluate this patient. Patient has a 1 day history of upper abdominal pain, specifically in the epigastric region, associated with nausea and vomiting. RUQ u/s demonstrates gallbladder wall thickening and distention of the gallbladder. Patient has elevated liver enzymes and white count with slight left shift. We will plan to admit the patient for acute acalculous cholecystitis with the possible expected stay of 2 midnights. Plan to keep patient on Zosyn and recheck labs tomorrow. Patient has had elevated liver enzymes since June of 2023. Depending on trend of liver enzymes, we may pursue an MRCP. Dr. Franklin will plan to perform a laparoscopic cholecystectomy with intraoperative cholangiogram and liver biopsy. Procedure details, risks and benefits have been explained. Patient has had the opportunity to ask and have questions answered. Patient verbally understands and agrees with the plan. Thank you for allowing us to participate in this patient's care. Addendum: Agree with Josefa Lara note. Patient does have history of elevated LFTs since May denies alcohol use and only occasional Tylenol use. Patient does not use NSAIDs due to ulcerative colitis. Did review patient's CAT scan as well as ultrasound patient's gallbladder does appear distended the pain is new however no obvious stones or sludge seen in the gallbladder. Plan check MRCP today. Patient is currently on the schedule tomorrow for laparoscopic cholecystectomy unless increased elevation of liver functions or MRCP results but also plan for liver biopsy at the time of surgery. Patient no further question this time. Reviewed the anatomy with the patient and discussed the procedure: laparoscopic cholecystectomy with possible cholangiograms, possible open. Review risks including but not limited to bleeding, infection, hernia, bile leak, retained gallstones requiring another procedure ERCP- Endoscopic Retrograde Cholangiopancreatography, injury to another organ (bile ducts, common bile duct, small bowel, etc.) and conversion to an open procedure. All questions were answered. Neli Franklin M.D. Pager: [phone] [facility] [address] [place] [address], Outpatient [place], [address] [place] [id number] Office: [phone] Charges/Coding Visit Charges Inpatient E&M: 65581 Init Hosp L2 Documented by User: Dr. Neli Franklin MD 03/03/24 13:25 HPI - General General Date of Admission: 03/03/24 [facility] Medical History Cough History of tilt table evaluation (07/2014) Syncope Hypokalemia Nonobstructive atherosclerosis of coronary artery Right bundle branch block (RBBB) Essential (primary) hypertension Paroxysmal supraventricular tachycardia Ulcerative colitis Home Medications ?Medication ?Instructions ?Recorded ?Last Taken ?Type mesalamine 1.2 gram tablet,delayed 2.4 g PO DAILY colitis 10/21/14 06/09/19 History release sertraline 100 mg tablet 50 mg PO DAILY 02/17/20 Unknown History amlodipine 5 mg tablet 5 mg PO DAILY #90 tabs 01/25/23 Unknown Rx losartan 25 mg tablet 25 mg PO DAILY #90 tabs 01/25/23 Unknown Rx metoprolol succinate 50 mg 50 mg PO DAILY #90 tabs 01/25/23 Unknown Rx tablet,extended release 24 hr potassium chloride 10 mEq 10 meq PO DAILY #90 caps 01/25/23 Unknown Rx capsule,extended release Allergy/AdvReac Type Severity Reaction Status Date / Time metoprolol (From Lopressor) Allergy Severe severe Verified 01/25/23 11:11 lightheadedness, dizziness lidocaine Allergy THROAT Verified 01/25/23 11:11 SWELLING morphine Allergy Other Verified 01/25/23 11:11 soap Allergy Hives Verified 01/25/23 11:11 MAGIC MOUTH WASH Allergy throat Uncoded 01/25/23 11:11 swelling Family History Father CAD (coronary artery disease) Mother Heart disease Brother Heart disease Surgical History History of appendectomy History of kidney surgery History of left heart catheterization (08/28/14) History of nasal polypectomy History of open reduction and internal fixation (ORIF) procedure History of radiofrequency ablation procedure for cardiac arrhythmia (04/28/14) History of surgical removal of testicle History of tonsillectomy Social History Smoking Status: Never smoker alcohol intake: never substance use type: does not use caffeine: Yes Type: tea Number of servings: 3 Results Lab / Micro Data 03/03/24 05:14 03/03/24 05:14 Assessment & Plan Assessment/Plan (1) Acute acalculous cholecystitis: PLAN: I have asked to evaluate this patient in conjunction with Dr. Franklin. She will independently evaluate this patient. Patient has a 1 day history of upper abdominal pain associated with nausea and vomiting. RUQ u/s demonstrates gallbladder wall thickening and distention of the gallbladder. Patient has elevated liver enzymes and white count with slight left shift. We will plan to admit the patient for acute acalculous cholecystitis with the possible expected stay of 2 midnights. Plan to keep patient on Zosyn and recheck labs tomorrow. Patient has had elevated liver enzymes since June of 2023. Depending on trend of liver enzymes, we may pursue an MRCP. Dr. Franklin will plan to perform a laparoscopic cholecystectomy with intraoperative cholangiogram and liver biopsy. Procedure details, risks and benefits have been explained. Patient has had the opportunity to ask and have questions answered. Patient verbally understands and agrees with the plan. Thank you for allowing us to participate in this patient's care. Addendum: Agree with Josefa Lara note. Patient does have history of elevated LFTs since May denies alcohol use and only occasional Tylenol use. Patient does not use NSAIDs due to ulcerative colitis. Did review patient's CAT scan as well as ultrasound patient's gallbladder does appear distended the pain is new however no obvious stones or sludge seen in the gallbladder. Plan check MRCP today. Patient is currently on the schedule tomorrow for laparoscopic cholecystectomy unless increased elevation of liver functions or MRCP results but also plan for liver biopsy at the time of surgery. Patient no further question this time. Reviewed the anatomy with the patient and discussed the procedure: laparoscopic cholecystectomy with possible cholangiograms, possible open. Review risks including but not limited to bleeding, infection, hernia, bile leak, retained gallstones requiring another procedure ERCP- Endoscopic Retrograde Cholangiopancreatography, injury to another organ (bile ducts, common bile duct, small bowel, etc.) and conversion to an open procedure. All questions were answered. Neli Franklin M.D. Pager: [phone] [facility] [address] [place] [address] Office: [phone]
[2024-03-03] MEDS: 0.9% Normal Saline (1000mL) 1,000 ML 75 ML IV (12:30)
[2024-03-03] MEDS: Losartan Potassium 25 MG Tablet PO (12:31)
--- NOTE | 2024-03-03 13:20 | MRI_ITS ---
MRCP without contrast 03/03/2024 2:53 PM COMPARISON: None CLINICAL HISTORY: Elevated liver enzymes TECHNIQUE: Multiplanar and multisequence MR images of the abdomen were obtained with MRCP sequence. Three-dimensional post-processing reconstructions were performed. FINDINGS: Liver: Multiple scattered subcentimeter T2 hyperintense cysts. Gallbladder: There is circumferential gallbladder wall thickening with no definite stones. Bile Ducts: There is a slightly beaded appearance of the intra and extrahepatic biliary ducts. Pancreas: Unremarkable Spleen: Unremarkable Adrenal Glands: Unremarkable Kidneys: Unremarkable GI Tract: Unremarkable Lymphadenopathy: Absent Ascites: Absent Bones: No suspicious lesions MRI/MRCP Abdomen without Contrast IMPRESSION: Findings suspicious for possible primary sclerosing cholangitis. Circumferential gallbladder wall thickening with no definite stones. Recommend ERCP. Electronically Signed: Yariel Colon MD at 17:16 EST ,
[2024-03-03] MEDS: Metoprolol(XL)Succ 50 MG Tablet PO (15:57)
[2024-03-03] MEDS: Acetaminophen 325 MG Tablet 650 MG PO (21:15)
--- NOTE | 2024-03-03 23:52 | EX.PCM.CON.G ---
HPI Consult Data Date of Consult: 03/03/24 HPI Narrative Reason for Consultation: Cholestatic hepatitis HPI Narrative: REGULO BALDERAS, is a 53-year-old male with past medical history of hypertension CAD and ulcerative colitis. He states that he ate dinner last night as he normally does and then a few hours later began with pain in the midepigastric abdominal region. He states after the pain developed he had a bout of vomiting. He reports that there is been no bouts of constipation and he denies any loose stool or diarrhea. He denies any fevers or chills or known sick contacts. He states his also colitis is typically well-controlled with his daily medication. However the pain has not improved over the last 4 hours and secondary to his he presents for evaluation. Labs : WBC 12K RBC 4.60, Hgb 14.3, Hct 42.6, MCV 92.6, Plt Count 302, Sodium 138, Potassium 3.9, Chloride 108 H, Carbon Dioxide 26.0, BUN 13, Creatinine 0.99Glucose 100, Calcium 8.8, Total Bilirubin 1.00, AST 81 H, ALT 167 H, Alkaline Phosphatase 354 H, Total Protein 6.8, Albumin 2.7 L, Globulin 4.1, C-React Prot Ext Range 13.[address]/Abdomen/Pelvis W IV Cont ONLY IMPRESSION: Findings suggest acute cholecystitis without definite calcified gallstones identified. Prominent wall of the common bile duct and intrahepatic biliary dilatation. Findings may be secondary inflammatory, or other inflammatory process such as cholangitis. Nondilated common bile duct. Choledocholithiasis less likely but not entirely excluded. Ultrasound and possibly MRI/MRCP may be helpful. US/Gallbladder IMPRESSION: Mildly distended gallbladder with thickened gallbladder wall measuring 5 mm. Acalculous cholecystitis should BE ruled out. Correlation with the nuclear medicine hepatobiliary scan recommended. MRCP : findings suspicious for possible primary sclerosing cholangitis. Circumferential gallbladder wall thickening with no definite stones. Recommend ERCP. [facility] Medical History Irregular heartbeat Cough History of tilt table evaluation (07/2014) Syncope Hypokalemia Nonobstructive atherosclerosis of coronary artery Right bundle branch block (RBBB) Essential (primary) hypertension Paroxysmal supraventricular tachycardia Ulcerative colitis Home Medications ?Medication ?Instructions ?Recorded ?Last Taken ?Type mesalamine 1.2 gram tablet,delayed 2.4 g PO DAILY colitis 10/21/14 06/09/19 History release sertraline 100 mg tablet 50 mg PO DAILY 02/17/20 Unknown History amlodipine 5 mg tablet 5 mg PO DAILY #90 tabs 01/25/23 Unknown Rx losartan 25 mg tablet 25 mg PO DAILY #90 tabs 01/25/23 Unknown Rx metoprolol succinate 50 mg 50 mg PO DAILY #90 tabs 01/25/23 03/04/24 Rx tablet,extended release 24 hr potassium chloride 10 mEq 10 meq PO DAILY #90 caps 01/25/23 Unknown Rx capsule,extended release Allergy/AdvReac Type Severity Reaction Status Date / Time metoprolol (From Lopressor) Allergy Severe severe Verified 01/25/23 11:11 lightheadedness, dizziness lidocaine Allergy THROAT Verified 01/25/23 11:11 SWELLING morphine Allergy Other Verified 01/25/23 11:11 soap Allergy Hives Verified 01/25/23 11:11 MAGIC MOUTH WASH Allergy throat Uncoded 01/25/23 11:11 swelling Family History Father CAD (coronary artery disease) Mother Heart disease Brother Heart disease Surgical History History of appendectomy History of open reduction and internal fixation (ORIF) procedure History of surgical removal of testicle History of nasal polypectomy History of tonsillectomy History of kidney surgery History of radiofrequency ablation procedure for cardiac arrhythmia (04/28/14) History of left heart catheterization (08/28/14) Social History Smoking Status: Never smoker alcohol intake: never substance use type: does not use caffeine: Yes Type: tea Number of servings: 3 ROS Constitutional Constitutional: Denies fatigue, fever(s), poor appetite, weight gain or weight loss Gastrointestinal Gastrointestinal: Denies belching, bloating, change in bowel habits, change in stool character, chewing difficulty, coffee ground emesis, constipation, cramping, diarrhea, dyspepsia, dysphagia, early satiety, excessive flatus, fecal incontinence, heartburn, hematemesis, hematochezia, hemorrhoids, loose stools, melena, nausea, odynophagia, rectal bleeding, tenesmus, vomiting or weight changes Physical Exam Const alert, oriented x3, no apparent distress and healthy appearing General Appearance: cooperative GI normal to inspection, nondistended, normoactive bowel sounds, soft to palpation, non-tender and non-distended Percussion: normal to percussion Rectal Exam: deferred Lab / Micro Data 03/04/24 05:49 03/04/24 05:49 Labs: Laboratory Results - last 24 hr 03/04/24 05:49: WBC 10.6, RBC 4.60, Hgb 14.3, Hct 42.6, MCV 92.6, MCH 31.1, MCHC 33.6, RDW Std Deviation 51.8 H, RDW Coeff of Justine 15.1 H, Plt Count 302, MPV 11.4, Immature Gran % (Auto) 0.300, Neut % (Auto) 47.1, Lymph % (Auto) 37.3, [place] % (Auto) 12.7 H, Eos % (Auto) 1.9, Baso % (Auto) 0.7, Absolute Neuts (auto) 5.0, Absolute Lymphs (auto) 3.95, Nucleated RBC % 0, Differential Comment SCANNED, Sodium 138, Potassium 3.9, Chloride 108 H, Carbon Dioxide 26.0, Anion Gap 4 L, BUN 13, Creatinine 0.99, Estim Creat Clear Calc 89.79, Est GFR (MDRD) Af Amer 100, Est GFR (MDRD) Non-Af 83, BUN/Creatinine Ratio 13.1, Glucose 100, Calcium 8.8, Total Bilirubin 1.00, AST 81 H, ALT 167 H, Alkaline Phosphatase 354 H, Total Protein 6.8, Albumin 2.7 L, Globulin 4.1, Albumin/Globulin Ratio 0.7 L 03/04/24 15:00: Iron 48 L, TIBC 318, Iron Saturation 15.1, Ferritin 277, C-React Prot Ext Range 13.50 H, YUKO-1 Antibody TNP, SS-A/Ro IgG Antibody TNP, SS-B/La IgG Antibody TNP, Sm (Ruiz) Antibody TNP, CHIEF DIETITIAN Antibody TNP, Scl-70 Scleroderma Ab TNP, Antichromatin Antibodies TNP, Centromere B Antibody TNP Imaging Radiology Impression MRCP 03/03/24 13:20 IMPRESSION: Findings suspicious for possible primary sclerosing cholangitis. Circumferential gallbladder wall thickening with no definite stones. Recommend ERCP. Electronically Signed: Yarile Colon MD at 17:16 EST , Assessment & Plan Assessment/Plan (1) Acute acalculous cholecystitis: (2) Elevated liver enzymes: PLAN: Plan 53-year-old gentleman with longstanding history of ulcerative colitis on 5-ASA's presents with abdominal pain, nausea and low-grade fever. He was also discovered to have cholestatic hepatitis with jaundice and elevated lipase. Differential diagnosis does include: Primary sclerosing cholangitis, autoimmune cholangiopathy, mixed PBC/PSC, choledocholithiasis with pancreatitis, IgG associated cholangiopathy he will undergo ERCP with evaluation of his hepatobiliary system. I am recommending antibiotics. We will also check an PATRICIA, ANCA, IgG4, smooth muscle antibody, antimitochondrial antibody, celiac profile, ESR, CRP, protein electrophoresis, DWAYNE antibody, HIV antibody, IBD SGI and further recommendation to follow. , \ Charges/Coding Visit Charges Inpatient E&M: 70555 Init Hosp L3
[2024-03-04] VITALS (14 sets, daily range): BP systolic 91–137; BP diastolic 70–91; PULSE 60–82; RESP 14–16; TEMP 36.3–37.3; O2SAT 94–98; BMI 27.1
[2024-03-04] MEDS: 0.9% Normal Saline (100mL Bag) 100 ML 15 ML IV ×2 (05:34→14:52)
[2024-03-04] MEDS: Piperacil/Tazobactam 3.375 GM in 0.9% Normal Saline (50mL MB+) 50 ML IV ×3 (05:34→21:03)
[2024-03-04 05:57] LABS: Absolute Lymphocyte Count 3.95 X10^3/uL (0.83-4.51); Basophil# 0.07 X10^3/uL; Basophil% 0.7 % (0-1); Eosinophils% 1.9 % (0-5); Hematocrit 42.6 % (40-54); Hemoglobin 14.3 g/dL (13.0-16.5); Lymphocyte # 3.95 X10^3/ul (0.83-4.51); Lymphocyte % 37.3 % (19-41); Mean Corp Hgb Conc 33.6 g/dL (32-36); Mean Corpuscular Hgb 31.1 pg (27.0-32.0); Mean Corpuscular Volume 92.6 fL (80-94); Mean Platelet Vol. 11.4 fl (6.2-12.0); Monocyte# 1.34 X10^3/uL; Monocyte% 12.7 % (0-10); NRBC Flagged by Analyzer 0 % (0-5); Neutrophil % 47.1 % (47-70); POSITIVE MORPHOLOGY YES; Platelet Count 302 K/mm3 (150-450); RBC Distribution Width CV 15.1 % (11.6-14.6); RBC Distribution Width SD 51.8 fl (35.1-43.9); White Blood Count 10.6 K/mm3 (4.4-11.0)
[2024-03-04 06:01] LABS: Differential Indicated SCAN CRITERIA MET
[2024-03-04 06:29] LABS: ALB/GLOB Ratio 0.7 RATIO (0.9-2.4); AST(SGOT) 81 U/L (15-37); Alanine Aminotransfer ALT/SGPT 167 U/L (16-61); Albumin, Serum 2.7 g/dL (3.2-5.0); Alkaline Phosphatase 354 U/L (45-117); Anion Gap 4 (5-15); BUN 13 mg/dL (7-18); BUN/Creat Ratio 13.1 RATIO (10-20); Calcium,Total 8.8 mg/dL (8.5-10.1); Chloride 108 mmol/L (98-107); Creatinine, Serum 0.99 mg/dL (0.70-1.30); EST Glomerular Filtration Rate 83 mL/min (>60); Est Glom Filt Rate - Afr Amer 100 mL/min (>60); Estimated Creatinine Clearance 89.79 ml/min; Globulin 4.1 g/dL (2.2-4.2); Glucose 100 mg/dL (74-106); Potassium 3.9 mmol/L (3.5-5.1); Protein, Total 6.8 g/dL (6.4-8.2); Sodium Level 138 mmol/L (136-145)
[2024-03-04 06:43] LABS: Differential Comment SCANNED
--- NOTE | 2024-03-04 07:26 | PN.SURG_ITS ---
Subjective Subjective Patient evaluated resting comfortably in bed. He notes the epigastric pain has improved. He seems to rest comfortably over night. He denies any nausea, vomiting, fever. He had an MRCP yesterday which demonstrated circumferential gallbladder wall thickening with no gallstones and findings suspicious for possible primary sclerosing cholangitis. Recommend ERCP. Objective Data Objective Data Vital Signs: Vital Signs Temp Pulse Resp BP Pulse Ox O2 Del Method 98.1 F 65 15 107/77 98 Room Air 03/04/24 03:05 03/04/24 03:05 03/04/24 03:05 03/04/24 05:42 03/04/24 03:05 03/04/24 03:05 Oxygen Delivery Method Room Air Weight: 195 lb Body Mass Index (BMI) 27.1 Intake & Output: Intake and Output for Last 24 Hours 03/02/24 03/03/24 03/04/24 23:59 23:59 23:59 Intake Total 1870 / 1870 50 / 50 Output Total 550 / 550 Balance 1320 / 1320 50 / 50 Lab / Micro Data 03/04/24 05:49 03/04/24 05:49 Labs: Laboratory Results - last 24 hr 03/04/24 05:49: WBC 10.6, RBC 4.60, Hgb 14.3, Hct 42.6, MCV 92.6, MCH 31.1, MCHC 33.6, RDW Std Deviation 51.8 H, RDW Coeff of Justine 15.1 H, Plt Count 302, MPV 11.4, Immature Gran % (Auto) 0.300, Neut % (Auto) 47.1, Lymph % (Auto) 37.3, M lashonda % (Auto) 12.7 H, Eos % (Auto) 1.9, Baso % (Auto) 0.7, Absolute Neuts (auto) 5.0, Absolute Lymphs (auto) 3.95, Nucleated RBC % 0, Differential Comment SCANNED, Sodium 138, Potassium 3.9, Chloride 108 H, Carbon Dioxide 26.0, Anion Gap 4 L, BUN 13, Creatinine 0.99, Estim Creat Clear Calc 89.79, Est GFR (MDRD) Af Amer 100, Est GFR (MDRD) Non-Af 83, BUN/Creatinine Ratio 13.1, Glucose 100, Calcium 8.8, Total Bilirubin 1.00, AST 81 H, ALT 167 H, Alkaline Phosphatase 354 H, Total Protein 6.8, Albumin 2.7 L, Globulin 4.1, Albumin/Globulin Ratio 0.7 L Radiography Diagnostic Testing: Radiology Impression Abdomen/Pelvis CT 03/03/24 05:08 IMPRESSION: Findings suggest acute cholecystitis without definite calcified gallstones identified. Prominent wall of the common bile duct and intrahepatic biliary dilatation. Findings may be secondary inflammatory, or other inflammatory process such as cholangitis. Nondilated common bile duct. Choledocholithiasis less likely but not entirely excluded. Ultrasound and possibly MRI/MRCP may be helpful. . Electronically Signed: Vanessa Fry MD at 7:00 EST , Gallbladder Ultrasound 03/03/24 07:02 IMPRESSION: Mildly distended gallbladder with thickened gallbladder wall measuring 5 mm. Acalculous cholecystitis should BE ruled out. Correlation with the nuclear medicine hepatobiliary scan recommended. Electronically Signed: Kb Brooks MD at 8:51 EST , MRCP 03/03/24 13:20 IMPRESSION: Findings suspicious for possible primary sclerosing cholangitis. Circumferential gallbladder wall thickening with no definite stones. Recommend ERCP. Electronically Signed: Yariel Colon MD at 17:16 EST , Physical Exam GI normal to inspection, nondistended, normoactive bowel sounds Assessment & Plan Assessment/Plan (1) Acute acalculous cholecystitis: (2) Elevated liver enzymes: PLAN: Plan I am following this patient in conjunction with Dr. Franklin. She will independently evaluate this patient. Labs reviewed. WBC is normal. Liver enzymes has decreased. Total Bilirubin has increased to 1.0 Dr. Canela has been consulted for an ERCP Cholecystectomy procedure for today is canceled No plans to pursue a lap osmar We will continue to monitor this patient and assist where needed Charges/Coding Visit Charges Inpatient E&M: 25920 Subs Hosp L1
[2024-03-04] MEDS: Metoprolol(XL)Succ 50 MG Tablet PO (08:56)
[2024-03-04] MEDS: 0.9% Saline Lock 10 ML Syringe IV ×2 (11:26→12:36)
--- NOTE | 2024-03-04 12:08 | CASEMGMT ---
RN CM Assessment Face to Face with patient for initial transition planning/care coordination assessment. JOSELYN GONZALEZ introduced self and role at [facility], pt voices understanding. Pt is A&Ox4 and is resting comfortably in bed and is calm. Care providers, pharmacy, and demographics verified. Admitting dx: Acute Cholecystitis LACE Strata: 1 PCP: Carlos Alberto Antohny Specialists: Jagjit DEGROOT (GI) Preferred Pharmacy: [facility] Insurance: ANTHEM Prescription Benefit: Yes LNOK: Sintia Quintana (Mother), Frankie Wahl (Brother) Living Arrangements: Pt lives with his mother in a single story mobile home with 4 steps to enter ADLs/IADLs: Ind Transportation: Self, mother, brother DME: Pulse ox, BP Machine HHC/SNF: Denies Hx or needs Pt?s goal: Home Plan: Home, anticipate no additional needs. 6-click=22. Pt is scheduled for an ERCP today at 1615. Pt 6-Click score is 22. At this time, the pt denies the need for OP Tx or CCN. Pt states that he feels safe returning home with his mom once he is medically ready and denies further questions or concerns at this time. CM to follow incase needs arise after ERCP. Report given to KIM ALVES CM. Danyel Cheatham RN, CM
--- NOTE | 2024-03-04 12:15 | RAD_ITS ---
EXAM: FL ERCP Biliary and Pancreatic Ductal Systems HISTORY: ERCP COMPARISON: None Technique: Endoscopic placed by Dr. Canela, fluoroscopy provided by Yasmine Cain 132.9 seconds of fluoroscopy, radiation dose of 70.69 mGy FINDINGS: Fluoroscopy provided for ERCP RAD/ERCP Biliary/Pancreas IMPRESSION: Fluoroscopy provided for ERCP, please see the dedicated ERCP report for complete details of the procedure Electronically Signed: Bill Zelaya MD at 22:57 EST ,
[2024-03-04] MEDS: Pantoprazole Sodium 40 MG in 0.9% Normal Saline (100mL MB+) 100 ML 330 MG IV (12:35)
[2024-03-04] MEDS: 0.9% Normal Saline (1000mL) 1,000 ML 75 ML IV (14:50)
[2024-03-04] MEDS: 0.9% Normal Saline (1000mL) 1,000 ML 15 ML IV (15:33)
[2024-03-04 15:45] LABS: Ferritin 277 ng/mL (26-388); Iron 48 ug/dL (65-175); Iron Binding Capacity,Total 318 ug/dL (250-450); PERCENT IRON SATURATION 15.1 % (15.0-55.0)
--- NOTE | 2024-03-04 15:53 | PCM.PRE.AN2 ---
ASA Classification* ASA Classification ASA Classification: 2 Assessment & Plan Anesthesia* Anesthesia Assessment Anesthesia Assessment: Discussed sedation and/or anesthesia options, risks, benefits, and alternatives with patient/parents/legal guardian/POA. Questions invited. The patient/parents/legal guardian/POA seems to understand and agrees to proceed with anesthesia plan. Reviewed the physical assessment, medical history, allergy history and patient home medications list prior to surgery/procedure/anesthetic and documented any changes. Performed airway and anesthesia risk assessments. Anesthesia Type Anesthesia Type: General History Source History Obtained from:: Patient and Chart Anesthesia Focused Assessment* Temperature: 98.3 F Pulse Rate: 71 Blood Pressure: 119/85 Respiratory Rate: 14 Pulse Ox: 95 Oxygen Delivery Method: Room Air Airway Assessment Mouth opens: >3 cm Mallampati Score: I Teeth Condition: Chipped/Broken (Multiple broken and missing on the bottom. None moving.) and Dentures (Follow-up for dentures are out.) Neck Range of motion (ROM): Full ROM Focused Labs Anesthesia Preop lab: CBC WBC 10.6 K/mm3 (4.4-11.0) 03/04/24 05:49 RBC 4.60 M/mm3 (4.6-6.2) 03/04/24 05:49 Hgb 14.3 g/dL (13.0-16.5) 03/04/24 05:49 Hct 42.6 % (40-54) 03/04/24 05:49 Plt Count 302 K/mm3 (150-450) 03/04/24 05:49 CHEMISTRY Potassium 3.9 mmol/L (3.5-5.1) 03/04/24 05:49 Sodium 138 mmol/L (136-145) 03/04/24 05:49 Magnesium 2.1 mg/dL (1.6-2.6) 04/23/23 10:06 Phosphorus 3.8 mg/dL (2.5-4.9) 06/10/19 03:43 BUN 13 mg/dL (7-18) 03/04/24 05:49 Creatinine 0.99 mg/dL (0.70-1.30) 03/04/24 05:49 Glucose 100 mg/dL (74-106) 03/04/24 05:49 POC Glucose 92 mg/dL (70-110) 04/08/14 14:40 TSH 1.18 uIU/mL (0.358-3.74) 04/23/23 10:06 COAG PT 12.7 SECONDS (11.7-14.9) 05/03/23 11:00 Pre-Assessment Diagnosis/Proposed Procedure Planned Operative Procedure(s): Endoscopic retrograde cholangiopancreatography Anesthesia History 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 When Was Last Pacemaker Check QUESTION #4 FULL TEXT: You/Your Family Experience fever (hyperthermia) with Anesthesia Last Oral Intake Last Oral intake: Last Oral Intake NPO since 00:00 03/04/24 14:54 Meds taken in AM with sips of Yes 03/04/24 14:54 water? 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 Female HX of Motion Sickness HX of N/V After Surgery Non-Smoker Duration of Surgery greater than 60 minutes Number of Risk Factors PONV Score Height & Weight Height & Weight: Anesthesia: Height & Weight Height 5 ft 11 in 03/04/24 14:54 Weight: 88.451 kg 03/04/24 14:54 Body Mass Index (BMI) 27.1 03/04/24 14:54 Respiratory Assessment Respiratory Assessment - dining service worker: Respiratory Tract Infection Hx - dining service worker Hx Respiratory Tract Infection No 03/04/24 02:30 STOP Sleep Apnea STOP Sleep Apnea - dining service worker: STOP Sleep Apnea - dining service worker Hx Hypertension Yes 03/03/24 11:42 Hx Sleep Apnea No 03/03/24 11:42 CPAP No 02/10/21 10:47 BIPAP No 02/10/21 10:47 Do you snore loudly (louder No 03/03/24 11:42 than talking or can be heard Do you often feel tired/ No 03/03/24 11:42 fatigued/ sleepy during daytime? Has anyone observed you stop No 03/03/24 11:42 breathing during sleep? STOP Results Negative 03/03/24 11:42 QUESTION #5 FULL TEXT : Do you snore loudly (louder than talking or can be heard through closed doors)? Tobacco Use History Tobacco Use History - dining service worker: Tobacco Use History - dining service worker Tobacco Use Smoking Status Never smoker 03/03/24 11:42 Hx Tobacco Use No 03/03/24 11:42 Years Smoking Packs Smoked per Day Smoking Cessation Date was within the last 15 years Hx Smoking Cessation Date Hx Smoking Cessation Counseling Hematologic Medial History Hematologic Hx - dining service worker: Hematologic Medical Hx - right of way clearer Hx of Blood Transfusion No 03/03/24 11:42 Hx of Transfusion in last 3 No 03/03/24 11:42 Months Date of Last Transfusion (if within last 3 months) Ever experience any problems No 03/03/24 11:42 with transfusion(s)? Specify any problems Hx of Preganancy in last 3 N/A 03/03/24 11:42 Months Nurse Filling Out Transfusion [facility] 03/03/24 11:42 & Questions: Date: 03/03/24 03/03/24 11:42 Time: 11:52 03/03/24 11:42 Patient unable to answer at this time (ie. confused, unrespo /Reproduction History /Reproductive History - dining service worker: /Reproductive Hx- dining service worker Hx Now No 03/04/24 02:30 Gestational Age (in weeks): EDC: Hx Hx Para Hx Section SAB No 03/04/24 02:30 Active Medications Active Medications: Current Medications Generic Name Dose Route Start Last Admin Trade Name Freq PRN Reason Stop Dose Admin Acetaminophen 650 mg 03/03/24 11:40 03/03/24 21:15 Acetaminophen 325 Mg Tablet PO 650 mg Q6H PRN PRN Administration Pain 1-10 Or Fever >100.7 Amlodipine Besylate 5 mg 03/03/24 11:40 03/04/24 14:51 Amlodipine 5 Mg Tablet PO Not Given DAILY VIDYA Protocol Hydromorphone HCl 0.5 - 1 mg 03/03/24 11:40 03/03/24 12:30 Hydromorphone 1 Mg/Ml Syringe IV 1 mg Q3H PRN PRN Administration Pain Score 6-10 Sodium Chloride 1,000 mls @ 75 mls/hr 03/03/24 11:40 03/04/24 14:50 IV 03/05/24 11:39 75 mls/hr .[id number] VIDYA Administration Protocol Piperacillin Sod/Tazobactam 50 mls @ 12.5 mls/hr 03/03/24 14:00 03/04/24 14:50 Sod 3.375 gm/ Sodium Chloride IV 12.5 mls/hr Q8 VIDYA Administration Pantoprazole Sodium 40 mg/ 110 mls @ 330 mls/hr 03/03/24 11:40 03/04/24 13:00 Sodium Chloride IV Infused Q24H VIDYA Infusion Sodium Chloride 100 mls @ 15 mls/hr 03/03/24 11:43 03/04/24 14:52 IV 15 mls/hr .Q6H40M PRN Administration Saline Flush Sodium Chloride 100 mls @ 15 mls/hr 03/03/24 11:43 IV .Q6H40M PRN Additional IVPB Infusion Sodium Chloride 1,000 mls @ 15 mls/hr 03/04/24 15:25 03/04/24 15:33 IV 03/10/24 04:44 15 mls/hr .Q48H VIDYA Administration Protocol Losartan Potassium 25 mg 03/03/24 11:40 03/04/24 14:51 Losartan Potassium 25 Mg Tablet PO Not Given DAILY VIDYA Protocol Mesalamine 2.4 gm 03/03/24 11:40 03/04/24 14:51 Mesalamine 1.2 Gm Tablet PO Not Given DAILY VIDYA Metoprolol Succinate 50 mg 03/03/24 11:40 03/04/24 08:56 Metoprolol(Xl)Succ 50 Mg Tablet PO 50 mg DAILY VIDYA Administration Protocol Ondansetron HCl 4 mg 03/03/24 11:40 03/03/24 12:19 Ondansetron 4 Mg/2 Ml Vial IV 4 mg Q8H PRN PRN Administration NAUSEA/VOMITING Oxycodone HCl 5 mg 03/03/24 11:40 Oxycodone 5 Mg Tablet PO Q4H PRN PRN Pain Score 4-10 Potassium Chloride 10 meq 03/03/24 11:40 03/04/24 08:51 Potassium Chloride Oral Tablet 10 Meq PO Not Given DAILYCM VIDYA Sertraline HCl 50 mg 03/03/24 11:40 03/04/24 14:51 Sertraline 50 Mg Tablet PO Not Given DAILY VIDYA Sodium Chloride 10 - 40 ml 03/03/24 11:43 03/04/24 12:36 0.9% Saline Lock 10 Ml Syringe IV 10 ml UD PRN Administration SALINE FLUSH [facility] Medical History Irregular heartbeat Cough History of tilt table evaluation (07/2014) Syncope Hypokalemia Nonobstructive atherosclerosis of coronary artery Right bundle branch block (RBBB) Essential (primary) hypertension Paroxysmal supraventricular tachycardia Ulcerative colitis Home Medications ?Medication ?Instructions ?Recorded ?Last Taken ?Type mesalamine 1.2 gram tablet,delayed 2.4 g PO DAILY colitis 10/21/14 06/09/19 History release sertraline 100 mg tablet 50 mg PO DAILY 02/17/20 Unknown History amlodipine 5 mg tablet 5 mg PO DAILY #90 tabs 01/25/23 Unknown Rx losartan 25 mg tablet 25 mg PO DAILY #90 tabs 01/25/23 Unknown Rx metoprolol succinate 50 mg 50 mg PO DAILY #90 tabs 01/25/23 03/04/24 Rx tablet,extended release 24 hr potassium chloride 10 mEq 10 meq PO DAILY #90 caps 01/25/23 Unknown Rx capsule,extended release Allergy/AdvReac Type Severity Reaction Status Date / Time metoprolol (From Lopressor) Allergy Severe severe Verified 01/25/23 11:11 lightheadedness, dizziness lidocaine Allergy THROAT Verified 01/25/23 11:11 SWELLING morphine Allergy Other Verified 01/25/23 11:11 soap Allergy Hives Verified 01/25/23 11:11 MAGIC MOUTH WASH Allergy throat Uncoded 01/25/23 11:11 swelling Family History Father CAD (coronary artery disease) Mother Heart disease Brother Heart disease Surgical History History of appendectomy History of open reduction and internal fixation (ORIF) procedure History of surgical removal of testicle History of nasal polypectomy History of tonsillectomy History of kidney surgery History of radiofrequency ablation procedure for cardiac arrhythmia (04/28/14) History of left heart catheterization (08/28/14) Social History Smoking Status: Never smoker alcohol intake: never substance use type: does not use caffeine: Yes Type: tea Number of servings: 3 Review of Systems (Anesthesia) ROS Narrative System reviewed and no additional complaints, except as documented.
[2024-03-04 15:54] LABS: Erythrocyte Sedimentation Rate 33 mm/hr (0-20)
--- NOTE | 2024-03-04 16:05 | PN.GI_ITS ---
Subjective Subjective Patient had his labs drawn today. He is for liver biopsy tomorrow. Objective Data Objective Data Vital Signs: Vital Signs Temp Pulse Resp BP Pulse Ox O2 Del Method 98.3 F 71 14 119/85 H 95 Room Air 03/04/24 16:01 03/04/24 16:01 03/04/24 16:01 03/04/24 16:01 03/04/24 16:01 03/04/24 16:04 Oxygen Delivery Method Room Air Weight: 195 lb Body Mass Index (BMI) 27.1 Intake & Output: Intake and Output for Last 24 Hours 03/02/24 03/03/24 03/04/24 23:59 23:59 23:59 Intake Total 1870 / 1870 1310 / 1310 Output Total 550 / 550 Balance 1320 / 1320 1310 / 1310 Lab / Micro Data 03/04/24 05:49 03/04/24 05:49 Labs: Laboratory Results - last 24 hr 03/04/24 05:49: WBC 10.6, RBC 4.60, Hgb 14.3, Hct 42.6, MCV 92.6, MCH 31.1, MCHC 33.6, RDW Std Deviation 51.8 H, RDW Coeff of Justine 15.1 H, Plt Count 302, MPV 11.4, Immature Gran % (Auto) 0.300, Neut % (Auto) 47.1, Lymph % (Auto) 37.3, M lashonda % (Auto) 12.7 H, Eos % (Auto) 1.9, Baso % (Auto) 0.7, Absolute Neuts (auto) 5.0, Absolute Lymphs (auto) 3.95, Nucleated RBC % 0, Differential Comment SCANNED, Sodium 138, Potassium 3.9, Chloride 108 H, Carbon Dioxide 26.0, Anion Gap 4 L, BUN 13, Creatinine 0.99, Estim Creat Clear Calc 89.79, Est GFR (MDRD) Af Amer 100, Est GFR (MDRD) Non-Af 83, BUN/Creatinine Ratio 13.1, Glucose 100, Calcium 8.8, Total Bilirubin 1.00, AST 81 H, ALT 167 H, Alkaline Phosphatase 354 H, Total Protein 6.8, Albumin 2.7 L, Globulin 4.1, Albumin/Globulin Ratio 0.7 L 03/04/24 15:00: ESR 33 H, Iron 48 L, TIBC 318, Iron Saturation 15.1, Ferritin 277, C-React Prot Ext Range 13.50 H, YUKO-1 Antibody TNP, SS-A/Ro IgG Antibody TNP, SS-B/La IgG Antibody TNP, Sm (Ruiz) Antibody TNP, LANDSCAPE ARCHITECTURE TEACHER Antibody TNP, Scl-70 Scleroderma Ab TNP, Antichromatin Antibodies TNP, Centromere B Antibody TNP Radiography Diagnostic Testing: Radiology Impression MRCP 03/03/24 13:20 IMPRESSION: Findings suspicious for possible primary sclerosing cholangitis. Circumferential gallbladder wall thickening with no definite stones. Recommend ERCP. Electronically Signed: Yariel Colon MD at 17:16 EST , Physical Exam Const alert, oriented x3, no apparent distress and healthy appearing General Appearance: cooperative GI normal to inspection, nondistended, normoactive bowel sounds, soft to palpation, non-tender and non-distended Percussion: normal to percussion Rectal Exam: deferred Assessment & Plan Assessment/Plan (1) Acute acalculous cholecystitis: (2) Elevated liver enzymes: PLAN: Plan 53-year-old gentleman with longstanding history of ulcerative colitis on 5-ASA's presents with abdominal pain, nausea and low-grade fever. He was also discovered to have cholestatic hepatitis with jaundice and elevated lipase. Differential diagnosis does include: Primary sclerosing cholangitis, autoimmune cholangiopathy, mixed PBC/PSC, choledocholithiasis with pancreatitis, IgG associated cholangiopathy he will undergo ERCP with evaluation of his hepatobiliary system. I am recommending antibiotics. We will also check an PATRICIA, ANCA, IgG4, smooth muscle antibody, antimitochondrial antibody, celiac profile, ESR, CRP, protein electrophoresis, DWAYNE antibody, HIV antibody, IBD SGI and further recommendation to follow. Liver biopsy tomorrow. , \ Charges/Coding Visit Charges Inpatient E&M: 99771 Subs Hosp L3
[2024-03-04 16:08] LABS: HIV - WCH Non-Reactive (Nonreactive)
--- NOTE | 2024-03-04 16:15 | FLU_PTH ---
PATIENT: REGULO BALDERAS LOC: MS3 U#:[id number] AGE/SX: 53/M ROOM: GA318 RE03/03/[address]: Dr. Neli Franklin MD : 1970 BED: 1 DIS: 03/05/2024 SPEC #: [id number] RECD: 03/04/24 17:03 STATUS: ELBERT REQ #: [id number] ELIAN: 03/04/24 16:[address]: Neli Franklin DEPT: CYTOLOGY RECD BY: Laurel Camara ENTERED: 03/05/24 08:44 SP TYPE: Fluid OTHR DR: Dr. Carlos Alberto Anthony, DO Tissues: A - Hepatic lobule B - Hepatic lobule C - Bile duct, NOS D - Bile duct, NOS Procedures: Special Stain Group II Surgery Specimen Level IV Cytospin Fluid Cytology Other HEADER OPERATION: ERCP with brushings, balloon sweep PRE-OP DIAGNOSIS: Acute acalculous cholecystitis, elevated liver enzymes TISSUE SUBMITTED: A- Right hepatic duct brush tip, B- Right hepatic duct brushings, C- Common bile duct brush tip, D- Common bile duct brushings DIAGNOSIS CYTOLOGY A. Right hepatic duct brush tip fluid (cytospins and cellblock): Negative for malignant cells. B. Right hepatic duct brushings (smears): A few clusters of atypical cells noted, favor reactive atypia. C. Common bile duct brush tip fluid (cytospins and cellblock): Rare, atypical cells noted, favor reactive atypia. D. Common bile duct brushings (smears): A few clusters of atypical cells noted, favor reactive atypia. 03/06/2024 COMMENT Clinical correlation and appropriate follow up are necessary. Please also make reference to additional specimen [id number] liver, CT guided core biopsy. CYTOLOGY STUDY Slides are reviewed. CYTOLOGY GROSS A. Received is a brush tip with 0.2 ml of brown cloudy fluid labeled with the patient's name and and designated per the requisition as Right hepatic duct brush tip. Submitted for cytology preparation including cell block. B. Received are 3 smears labeled with the patient's name and designated per the requisition as Right hepatic duct brushings. Submitted for staining. C. Received is a brush tip with 0.2 ml of brown cloudy fluid labeled with the patient's name and and designated per the requisition as Common bile duct brush tip. Submitted for cytology preparation including cell block. D. Received are 3 smears labeled with the patient's name and designated per the requisition as Common bile duct brushings. Submitted for staining. Mr 03/05/2024 TC:5 CPT: 73220v8 ,[id number],68412g8
--- NOTE | 2024-03-04 17:08 | PCM.POST.ANE ---
Anesthesia: Postop Eval I Current Vital Signs Temperature: 97.4 F Pulse Rate: 76 Blood Pressure: 130/90 Respiratory Rate: 14 Pulse Ox: 98 Oxygen Delivery Method: Room Air Assessment Airway patent: Yes Spontaneous unlabored respirations: Yes Mental status: Awake nausea: No Vomiting: No Anesthesia Complication: No Fluid Hydration Crystalloid volume administer (ml): 1,000 Total IV fluid infused: 1,000 Progress Note Anesthesia document: Postop Eval 1 completed: Yes
--- NOTE | 2024-03-04 17:23 | OP.CCLET_ITS ---
03/04/2024 Carlos Alberto Anthony Re : ERCP procedure for Sancho Wahl Pilar Anthony This procedure was performed on Monday, March 04, 2024. My impressions and recommendations are as follows: Impressions : - Choledocholithiasis was found. Complete removal was accomplished by biliary sphincterotomy and balloon extraction. - A biliary sphincterotomy was performed. - The biliary tree was swept. - Cells for cytology obtained in the upper third of the main bile duct, at the hepatic duct bifurcation, in the right main hepatic duct and in the right intrahepatic branches. Recommendations : My findings are described in the full procedure note, which is enclosed. If I can be of further assistance, please feel free to contact me at . Sincerely, Per Canela, 03/04/2024 5:22:54 PM This report has been signed electronically.
--- NOTE | 2024-03-04 17:23 | OP.ERCP_ITS ---
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 Refer to note in patient chart for documentation of history and physical. Patient has symptoms of acute jaundice. An ultrasound of the gallbladder showed multiple gallbladder stones. Complications: No immediate complications. Procedure: Pre-Anesthesia Assessment: - Prior to the procedure, a History and Physical was performed, and patient medications and allergies were reviewed. The patient is competent. The risks and benefits of the procedure and the sedation options and risks were discussed with the patient. All questions were answered and informed consent was obtained. Patient identification and proposed procedure were verified by the physician in the pre-procedure area. Mental Status Examination: alert and oriented. Airway Examination: normal oropharyngeal airway and neck mobility. Respiratory Examination: clear to auscultation. CV Examination: normal. Prophylactic Antibiotics: The patient does not require prophylactic antibiotics. Prior Anticoagulants: The patient has taken no anticoagulant or antiplatelet agents except for NSAID medication. ASA Grade Assessment: II - A patient with mild systemic disease. After reviewing the risks and benefits, the patient was deemed in satisfactory condition to undergo the procedure. The anesthesia plan was to use general anesthesia. Immediately prior to administration of medications, the patient was re-assessed for adequacy to receive sedatives. The heart rate, respiratory rate, oxygen saturations, blood pressure, adequacy of pulmonary ventilation, and response to care were monitored throughout the procedure. The physical status of the patient was re-assessed after the procedure. After obtaining informed consent, the scope was passed under direct vision. Throughout the procedure, the patient's blood pressure, pulse, and oxygen saturations were monitored continuously. The Duodenoscope was introduced through the mouth, and advanced to the duodenum and used to inject contrast into the bile duct. The ERCP was accomplished without difficulty. The patient tolerated the procedure well. Scope In: 4:31:15 PM Scope Out: 4:48:57 PM Total Procedure Duration Time 0 hours 17 minutes 42 seconds Findings: The slate roofer film was normal. The esophagus was successfully intubated under direct vision. The scope was advanced to a normal major papilla in the descending duodenum without detailed examination of the pharynx, larynx and associated structures, and upper GI tract. The upper GI tract was grossly normal. The bile duct was deeply cannulated with the short-nosed traction sphincterotome. Contrast was injected. I personally interpreted the bile duct images. The flow of contrast through the ducts was poor. Image quality was adequate. Opacification of the entire opacified area, main bile duct, common bile duct, gallbladder, common hepatic duct, hepatic duct bifurcation, left and right hepatic ducts separately (Bismuth II), left main hepatic duct, right main hepatic duct and right intrahepatic branches was successful. The maximum diameter of the ducts was 8 mm. The lower third of the main bile duct contained one stone, which was 3 mm in diameter. A long 0.025 inch Jagwire was passed into the biliary tree. An angled Roadrunner wire passed successfully into the entire main bile duct, the right intrahepatic branches and the left and right hepatic ducts and all intrahepatic branches. A 5 mm biliary sphincterotomy was made with a traction (standard) sphincterotome using ERBE electrocautery. There was no post-sphincterotomy bleeding. The biliary tree was swept with a 12 mm balloon starting at the upper third of the main bile duct, middle third of the main bile duct, lower third of the main duct, bifurcation, left intrahepatic duct(s) and right intrahepatic duct(s). Sludge was swept from the duct. All stones were removed. Cells for cytology were obtained by brushing in the upper third of the main bile duct, the hepatic duct bifurcation, the right main hepatic duct and the right intrahepatic branches. Impression: - Choledocholithiasis was found. Complete removal was accomplished by biliary sphincterotomy and balloon extraction. - A biliary sphincterotomy was performed. - The biliary tree was swept. - Cells for cytology obtained in the upper third of the main bile duct, at the hepatic duct bifurcation, in the right main hepatic duct and in the right intrahepatic branches. Procedure Code(s): --- Professional --- 37884, Endoscopic retrograde cholangiopancreatography (ERCP); with removal of calculi/debris from biliary/pancreatic duct(s) 85448, Endoscopic retrograde cholangiopancreatography (ERCP); with sphincterotomy/papillotomy 81155, 26, Endoscopic catheterization of the biliary ductal system, radiological supervision and interpretation CPT copyright 2021 [employer]. All rights reserved. The codes documented in this report are preliminary and upon direct care professional review may be revised to meet current compliance requirements. Per Canela DO 03/04/2024 5:22:54 PM This report has been signed electronically. Number of Addenda: 0 Note Initiated On: 03/04/2024 3:56 PM
[2024-03-04] MEDS: Acetaminophen 325 MG Tablet 650 MG PO (17:45)
[2024-03-04] MEDS: Potassium Chloride Oral Tablet 10 MEQ PO (19:27)
[2024-03-04] MEDS: Sertraline 50 MG Tablet PO (19:28)
[2024-03-04] MEDS: Mesalamine 1.2 GM Tablet 2.4 GM PO (19:29)
--- NOTE | 2024-03-04 19:50 | POSTOPAN2_ITS ---
Anesthesia Postop Eval I Sum Postop Eval Completion status Anesthesia document: Postop Eval 1 completed: Yes Anesthesia Postop Eval I Summary Anesthesia Postop Eval I Summary: Anesthesia Postop Eval I: Assessment Summary Airway patent Yes 03/04/24 17:08 EVAPORATIVE COOLER INSTALLER.[email or web address] Spontaneous unlabored Yes 03/04/24 17:08 EVAPORATIVE COOLER INSTALLER.HBARR respirations Mental status Awake 03/04/24 17:08 EVAPORATIVE COOLER INSTALLER.HBARR nausea No 03/04/24 17:08 EVAPORATIVE COOLER INSTALLER.HBARR Vomiting No 03/04/24 17:08 EVAPORATIVE COOLER INSTALLER.HBARR Anesthesia Postop Eval I: Fluid Summary Crystalloid volume administer 1,000 03/04/24 17:08 EVAPORATIVE COOLER INSTALLER.HBARR (ml) Colloids volume administered ( ml) Blood Product volume administered (ml) Total IV fluid infused 1,000 03/04/24 17:08 EVAPORATIVE COOLER INSTALLER.HBARR Anesthesia Postop Eval I: Summary Notes Anesthesia Complication No 03/04/24 17:08 EVAPORATIVE COOLER INSTALLER.HBARR Anesthesia Complication Comment: Post-operative progress note Anesthesia: Postop Eval II Evaluation Mental status: Awake and Calm Pain Level: 1 nausea: No Vomiting: No Complications Anesthesia Complication: No
--- NOTE | 2024-03-04 19:50 | PCM.POSTANE2 ---
Anesthesia Postop Eval I Sum Postop Eval Completion status Anesthesia document: Postop Eval 1 completed: Yes Anesthesia Postop Eval I Summary Anesthesia Postop Eval I Summary: Anesthesia Postop Eval I: Assessment Summary Airway patent Yes 03/04/24 17:08 LITIGATION [email or web address] Spontaneous unlabored Yes 03/04/24 17:08 LITIGATION MANAGER.HBARR respirations Mental status Awake 03/04/24 17:08 LITIGATION MANAGER.HBARR nausea No 03/04/24 17:08 LITIGATION MANAGER.HBARR Vomiting No 03/04/24 17:08 LITIGATION MANAGER.HBARR Anesthesia Postop Eval I: Fluid Summary Crystalloid volume administer 1,000 03/04/24 17:08 LITIGATION MANAGER.HBARR (ml) Colloids volume administered ( ml) Blood Product volume administered (ml) Total IV fluid infused 1,000 03/04/24 17:08 LITIGATION MANAGER.HBARR Anesthesia Postop Eval I: Summary Notes Anesthesia Complication No 03/04/24 17:08 LITIGATION MANAGER.HBARR Anesthesia Complication Comment: Post-operative progress note Anesthesia: Postop Eval II Evaluation Mental status: Awake and Calm Pain Level: 1 nausea: No Vomiting: No Complications Anesthesia Complication: No
[2024-03-05] VITALS (15 sets, daily range): BP systolic 107–154; BP diastolic 71–96; PULSE 60–69; RESP 13–19; TEMP 36.6–37.1; O2SAT 93–99
--- NOTE | 2024-03-05 | LIV_PTH ---
PATIENT: REGULO BALDERAS LOC: MS3 U#:[id number] AGE/SX: 53/M ROOM: FL318 RE03/03/[address]: Dr. Neli Franklin MD : 1970 BED: 1 DIS: 03/05/2024 SPEC #: [id number] RECD: 03/05/24 13:19 STATUS: ELBERT REQ #: [id number] ELIAN: 03/05/24 00:[address]: Neli Franklin DEPT: SURGICAL PATHOLOGY RECD BY: Frankie Lucero ENTERED: 03/05/24 13:19 SP TYPE: LIVER RES OTHR DR: Dr. Carlos Alberto Anthony DO Tissues: Liver, NOS Procedures: PAS with Diastase (control) Trichrome (control) Special Stain Group I PAS Stain (control) Surgery Specimen Level V Retic (control) Iron Stain (control) HEADER OPERATION: Liver biopsy PRE-OP DIAGNOSIS: Liver TISSUE SUBMITTED: 18-gauge x 4 cores MICROSCOPIC DIAGNOSIS Liver, CT guided core biopsy: Liver parenchymal tissue with bridging fibrosis and changes suspicious for early cirrhosis. See microscopic description and comment. 03/06/2024 COMMENT Please also make reference to additional cytology specimen [id number]. Correlation with clinical, radiologic, laboratory findings and appropriate follow up are necessary. MICROSCOPIC DESCRIPTION Slides are reviewed. This specimen shows liver parenchymal tissue with partial distortion of normal lobular architecture. Hepatocytes show minimal reactive changes. Lobular inflammation is noted predominantly consists of lymphocytes and a few neutrophils. Portal area shows chronic inflammation predominantly consists of lymphocytes and a few neutrophils. Interface inflammation is minimal. Iron stain shows absent iron. Reticulin and trichrome stains highlights increased portal, periportal and bridging fibrosis. Focal distortion of normal lobular architecture is also noted, suspicious for cirrhosis. PAS stain with and without diastase do not show any abnormal accumulation of protein. All stains are performed with appropriate matched controls. GROSS DESCRIPTION Received in fixative is one container labeled with the patient's name and designated Liver biopsy. The specimen consists of multiple elongated fragments of arcos soft tissue that in aggregate measure 1.5 x 0.4 x 0.1 cm. The specimen is totally submitted in one cassette. SJ.mr 03/05/2024 TC:5 CPT:68420,35032r6
[2024-03-05] MEDS: Piperacil/Tazobactam 3.375 GM in 0.9% Normal Saline (50mL MB+) 50 ML IV (05:00)
[2024-03-05 06:50] LABS: Absolute Lymphocyte Count 3.16 X10^3/uL (0.83-4.51); Absolute Neutrophil Count 5.3 X10^3/uL (2.0-7.7); Basophil# 0.08 X10^3/uL; Basophil% 0.8 % (0-1); Eosinophil# 0.31 X10^3/uL; Eosinophils% 3.1 % (0-5); Hematocrit 42.1 % (40-54); Hemoglobin 13.7 g/dL (13.0-16.5); Lymphocyte # 3.16 X10^3/ul (0.83-4.51); Lymphocyte % 31.3 % (19-41); Mean Corp Hgb Conc 32.5 g/dL (32-36); Mean Corpuscular Hgb 30.3 pg (27.0-32.0); Mean Corpuscular Volume 93.1 fL (80-94); Mean Platelet Vol. 11.9 fl (6.2-12.0); Monocyte% 11.9 % (0-10); NRBC Flagged by Analyzer 0 % (0-5); Neutrophil # 5.32 X10^3/uL (2.7-7.7); Neutrophil % 52.6 % (47-70); Platelet Count 293 K/mm3 (150-450); RBC Distribution Width SD 51.9 fl (35.1-43.9); Red Blood Count 4.52 M/mm3 (4.6-6.2); White Blood Count 10.1 K/mm3 (4.4-11.0)
[2024-03-05 07:12] LABS: Partial Thromboplast Time 27.3 Seconds (24.1-36.2); Prothrombin Time (Protime)PT. 12.8 SECONDS (11.7-14.9)
[2024-03-05] MEDS: 0.9% Normal Saline (1000mL) 1,000 ML 75 ML IV (07:23)
[2024-03-05 07:26] LABS: AST(SGOT) 382 U/L (15-37); Alanine Aminotransfer ALT/SGPT 391 U/L (16-61); Albumin, Serum 2.5 g/dL (3.2-5.0); Alkaline Phosphatase 460 U/L (45-117); Anion Gap 5 (5-15); BUN 14 mg/dL (7-18); BUN/Creat Ratio 13.9 RATIO (10-20); Bilirubin, Direct 0.73 mg/dL (0.00-0.30); Calcium,Total 8.5 mg/dL (8.5-10.1); Chloride 109 mmol/L (98-107); Creatinine, Serum 1.01 mg/dL (0.70-1.30); EST Glomerular Filtration Rate 81 mL/min (>60); Est Glom Filt Rate - Afr Amer 98 mL/min (>60); Estimated Creatinine Clearance 88.02 ml/min; Glucose 96 mg/dL (74-106); Potassium 3.9 mmol/L (3.5-5.1); Protein, Total 6.5 g/dL (6.4-8.2); Sodium Level 141 mmol/L (136-145)
--- NOTE | 2024-03-05 08:04 | PN.GI_ITS ---
Subjective Subjective Patient underwent ERCP yesterday. He is not having abdominal pain and is tolerating a diet. He got his liver biopsy today without any problems. Objective Data Objective Data Vital Signs: Vital Signs Temp Pulse Resp BP Pulse Ox O2 Del Method O2 Flow Rate 98.1 F 63 16 132/93 H 97 Room Air 2 03/05/24 16:21 03/05/24 16:21 03/05/24 16:21 03/05/24 16:21 03/05/24 16:21 03/05/24 16:21 03/05/24 10:30 Oxygen Flow Rate (L/min) 2 Oxygen Delivery Method Room Air Weight: 195 lb Body Mass Index (BMI) 27.1 Intake & Output: Intake and Output for Last 24 Hours 03/03/24 03/04/24 03/05/24 23:59 23:59 23:59 Intake Total 1870 / 1870 1822.5 / 1822.5 1297.5 / 1297.5 Output Total 550 / 550 1000 / 1000 850 / 850 Balance 1320 / 1320 822.5 / 822.5 447.5 / 447.5 Lab / Micro Data 03/05/24 05:59 03/05/24 05:59 Labs: Laboratory Results - last 24 hr 03/05/24 05:59: WBC 10.1, RBC 4.52 L, Hgb 13.7, Hct 42.1, MCV 93.1, MCH 30.3, MCHC 32.5, RDW Std Deviation 51.9 H, RDW Coeff of Justine 15.0 H, Plt Count 293, MPV 11.9, Immature Gran % (Auto) 0.300, Neut % (Auto) 52.6, Lymph % (Auto) 31.3, M lashonda % (Auto) 11.9 H, Eos % (Auto) 3.1, Baso % (Auto) 0.8, Absolute Neuts (auto) 5.3, Absolute Lymphs (auto) 3.16, Nucleated RBC % 0, PT 12.8, INR 1.0, APTT 27.3, Sodium 141, Potassium 3.9, Chloride 109 H, Carbon Dioxide 27.0, Anion Gap 5, BUN 14, Creatinine 1.01, Estim Creat Clear Calc 88.02, Est GFR (MDRD) Af Amer 98, Est GFR (MDRD) Non-Af 81, BUN/Creatinine Ratio 13.9, Glucose 96, Calcium 8.5, Total Bilirubin 1.10 H, Direct Bilirubin 0.73 H, AST 382 H, ALT 391 H, A lkaline Phosphatase 460 H, Total Protein 6.5, Albumin 2.5 L, Globulin 4.0 Radiography Diagnostic Testing: Radiology Impression Endo Retro Cholangiopancreatogram 03/04/24 12:15 IMPRESSION: Fluoroscopy provided for ERCP, please see the dedicated ERCP report for complete details of the procedure Electronically Signed: Bill Zelaya MD at 22:57 EST , Biopsy CT 03/05/24 10:15 IMPRESSION: 1. CT directed core needle biopsy of the liver, using CT image guidance with image documentation as described. 2. Conscious Sedation protocol utilized with independent monitoring. Electronically Signed: Kb Brooks MD at 10:50 EST , Assessment & Plan Assessment/Plan (1) Acute acalculous cholecystitis: (2) Elevated liver enzymes: PLAN: Plan 53-year-old gentleman with longstanding history of ulcerative colitis on 5-ASA's presents with abdominal pain, nausea and low-grade fever. He was also discovered to have cholestatic hepatitis with jaundice and elevated lipase. Differential diagnosis does include: Primary sclerosing cholangitis, autoimmune cholangiopathy, mixed PBC/PSC, choledocholithiasis with pancreatitis, IgG associated cholangiopathy he will undergo ERCP with evaluation of his hepatobiliary system. I am recommending antibiotics. We will also check an PATRICIA, ANCA, IgG4, smooth muscle antibody, antimitochondrial antibody, celiac profile, ESR, CRP, protein electrophoresis, DWAYNE antibody, HIV antibody, IBD SGI and further recommendation to follow. Liver biopsy tomorrow. 03/05/2024 -patient can be DC'd from GI standpoint to follow-up in the clinic. , \ Charges/Coding Visit Charges Inpatient E&M: 78141 Subs Hosp L2
--- NOTE | 2024-03-05 09:05 | PCM.PN.SRG ---
Subjective Subjective Patient had ERCP yesterday consistent with PSC brushings were done. Patient's gallbladder did appear to have stones on ERCP but the contrast did go into the gallbladder. Patient denies any abdominal pain. Plan for liver biopsy today. Objective Data Objective Data Vital Signs: Vital Signs Temp Pulse Resp BP Pulse Ox O2 Del Method 98.2 F 60 14 118/76 93 Room Air 03/05/24 07:39 03/05/24 07:39 03/05/24 07:39 03/05/24 07:39 03/05/24 07:39 03/05/24 07:39 Oxygen Delivery Method Room Air Weight: 195 lb Body Mass Index (BMI) 27.1 Intake & Output: Intake and Output for Last 24 Hours 03/03/24 03/04/24 03/05/24 23:59 23:59 23:59 Intake Total 1870 / 1870 1822.5 / 1822.5 1137.5 / 1137.5 Output Total 550 / 550 1000 / 1000 850 / 850 Balance 1320 / 1320 822.5 / 822.5 287.5 / 287.5 Lab / Micro Data 03/05/24 05:59 03/05/24 05:59 Labs: Laboratory Results - last 24 hr 03/04/24 15:00: ESR 33 H, Iron 48 L, TIBC 318, Iron Saturation 15.1, Ferritin 277, C-React Prot Ext Range 13.50 H, YUKO-1 Antibody TNP, SS-A/Ro IgG Antibody TNP, SS-B/La IgG Antibody TNP, Sm (Ruiz) Antibody TNP, MOTOR REBUILDER Antibody TNP, Scl-70 Scleroderma Ab TNP, Antichromatin Antibodies TNP, Centromere B Antibody TNP, HIV 1&2 Antibody Non-Reactive 03/05/24 05:59: WBC 10.1, RBC 4.52 L, Hgb 13.7, Hct 42.1, MCV 93.1, MCH 30.3, MCHC 32.5, RDW Std Deviation 51.9 H, RDW Coeff of Justine 15.0 H, Plt Count 293, MPV 11.9, Immature Gran % (Auto) 0.300, Neut % (Auto) 52.6, Lymph % (Auto) 31.3, [place] % (Auto) 11.9 H, Eos % (Auto) 3.1, Baso % (Auto) 0.8, Absolute Neuts (auto) 5.3, Absolute Lymphs (auto) 3.16, Nucleated RBC % 0, PT 12.8, INR 1.0, APTT 27.3, Sodium 141, Potassium 3.9, Chloride 109 H, Carbon Dioxide 27.0, Anion Gap 5, BUN 14, Creatinine 1.01, Estim Creat Clear Calc 88.02, Est GFR (MDRD) Af Amer 98, Est GFR (MDRD) Non-Af 81, BUN/Creatinine Ratio 13.9, Glucose 96, Calcium 8.5, Total Bilirubin 1.10 H, Direct Bilirubin 0.73 H, AST 382 H, ALT 391 H, Alkaline Phosphatase 460 H, Total Protein 6.5, Albumin 2.5 L, Globulin 4.0 Radiography Diagnostic Testing: Radiology Impression Endo Retro Cholangiopancreatogram 03/04/24 12:15 IMPRESSION: Fluoroscopy provided for ERCP, please see the dedicated ERCP report for complete details of the procedure Electronically Signed: Bill Zelaya MD at 22:57 EST Reading Location ID and State: [address] [place] [address] , Service support , Physical Exam Const alert, oriented x3 and no apparent distress Resp normal respiratory effort Cardio regular rate GI soft to palpation and non-tender; Negative for non-distended Palpation: Negative for guarding Skin no rashes or lesions noted Assessment & Plan Assessment/Plan (1) Thickening of wall of gallbladder: (2) Elevated liver enzymes: (3) Primary sclerosing cholangitis: (4) Hx of ulcerative colitis: PLAN: Plan Patient's MRCP and ERCP are consistent with PSC. Brushings were done. Labs have also been ordered by GI. Patient is planned to get a liver biopsy today by IR. Since contrasted feel into the gallbladder no plans to remove the gallbladder. MRCP and ultrasound did not show any stones however did appear to have small possible stones on ERCP. Will plan to refer patient to [facility] for potential liver transplant in the future or evaluation. Will also continue antibiotics for 14 days total?Augmentin on DC. Discussed with patient he had no further questions this time. Neli Franklin M.D. Pager: [phone] [facility] [address] [place] [address], [facility], [address] [place] [address] Office: [phone] Charges/Coding Multi Select Codes Visit Charges Visit Charges: 16409 Subs Hosp L2
[2024-03-05] MEDS: Midazolam 2 MG/2 ML Syringe IV (10:11)
[2024-03-05] MEDS: fentaNYL 100 MCG/2 ML Ampul IV (10:13)
[2024-03-05] MEDS: 0.9% Saline Lock 10 ML Syringe IV (10:15)
--- NOTE | 2024-03-05 10:15 | CT_ITS ---
PROCEDURE: CT DIRECTED CORE LIVER BIOPSY INDICATION: Male, 53 years old. Elevated liver function tests. PSC -- plan likely d/c home tomorrow after bx- fyi PHYSICIAN: Dr. Cecilia Miner CONSENT: Written informed consent was obtained having explained the risks, benefits and alternatives in detail with the patient who accepted the risks and agreed to proceed. Laboratory review and clinical assessment was performed. CONSCIOUS SEDATION PROTOCOL: The Drugs used were: 2 mg Versed, IV., and 50 mcg Fentanyl, IV. The sedation time was: 19 minutes. Conscious sedation was started at 10:11 AM and terminated at 10:30 AM. The conscious sedation protocol was independently monitored. RADIATION DOSAGE (If Supplied By Facility): CTDIvol = ( 23 ) mGy, DLP = ( 1103.67 ) mGycm Individualized dose optimization techniques were used for this CT. TECHNIQUE: Using CT image guidance with image documentation, a suitable location in the right lobe of the liver was identified. Using an anterior approach, puncture of the liver was uneventful with an 18-gauge core needle system. 4, 18-gauge core samples were obtained, and submitted in formalin to the pathologist for further assessment. Followup CT scan revealed no distinct sequelae. CT/Biopsy/Inj or Needle Placement IMPRESSION: 1. CT directed core needle biopsy of the liver, using CT image guidance with image documentation as described. 2. Conscious Sedation protocol utilized with independent monitoring. Electronically Signed: Kb Brooks MD at 10:50 EST ,
[2024-03-05] MEDS: Lidocaine 2% (20 ml mdv) 20 ML Vial INFILT (10:23)
--- NOTE | 2024-03-05 10:30 | PCM.DC.SUM ---
Providers Date of Admission: 03/03/24 Primary Care Physician: Dr. Carlos Alberto Anthony, DO Consultations 03/04/24 03:23 Consult: Gastroenterology Routine Consulting Provider: [facility] Reason for Consult: needs to have ERCP, suspects problem with bile ducts EMERGENT Consult: No MD Notified: Yes Date Notified: 03/03/24 Time Notified: 21:00 Method of Notification: Verbal Reason For Visit: ACUTE ACALCULOUS CHOLECYSTITIS Diagnosis Discharge Diagnosis (1) Thickening of wall of gallbladder: Status: Acute Code(s): K82.8 - Other specified diseases of gallbladder (2) Elevated liver enzymes: Status: Acute Code(s): R74.8 - Abnormal levels of other serum enzymes (3) Primary sclerosing cholangitis: Status: Acute Code(s): K83.01 - Primary sclerosing cholangitis (4) Hx of ulcerative colitis: Status: Acute Code(s): Z87.19 - Personal history of other diseases of the digestive system Plan I am following this patient in conjunction with Dr. Franklin. She will independently evaluate this patient. Labs reviewed. WBC is normal. Liver enzymes has decreased. Total Bilirubin has increased to 1.0 Dr. Canela has been consulted for an ERCP Cholecystectomy procedure for today is canceled No plans to pursue a lap osmar We will continue to monitor this patient and assist where needed Medications at Discharge Home Medications mesalamine 1.2 gram tablet,delayed release 2.4 g PO DAILY colitis 10/21/14 sertraline 100 mg tablet 50 mg PO DAILY 02/17/20 amlodipine 5 mg tablet 5 mg PO DAILY #90 tabs 01/25/23 losartan 25 mg tablet 25 mg PO DAILY #90 tabs 01/25/23 metoprolol succinate 50 mg tablet,extended release 24 hr 50 mg PO DAILY #90 tabs 01/25/23 potassium chloride 10 mEq capsule,extended release 10 meq PO DAILY #90 caps 01/25/23 amoxicillin 875 mg-potassium clavulanate 125 mg tablet 1 tab PO BIDCM 12 days #24 tabs 03/05/24 Hospital Course Operations ERCP Summary of Care Provided Minutes Spent on Discharge: 30 Hospital Course: Patient is a 53 y/o M who presented with epigastric/upper abdominal pain x [address] scan of the ab/pel was obtained demonstrating acute cholecystitis without calculus, prominent wall of the common bile duct and intrahepatic biliary dilatation. RUQ u/s was obtained and demonstrated mildly distended gallbladder with thickened gallbladder wall without gallstones. Patient was scheduled for a laparoscopic cholecystectomy with IOC when it was noted that the patients liver enzymes were elevated and have been since June of 2023. An MRCP was ordered demonstrating circumferential gallbladder wall thickening with no definite stones. Bile ducts with slightly beaded appearance of the intra and extrahepatic biliary ducts; suspicious for possible primary sclerosing cholangitis. An ERCP was recommended. Dr. Canela, gastroenterology, was consulted. Dr. Canela performed an ERCP on 03/04/24, which demonstrated choledocholithiasis was found. Complete removal was accomplished. Biliary sphincterotomy was performed. Cells for cytology were obtained in the upper third of the main bile duct, hepatic duct bifurcation, right main hepatic duct and right intrahepatic branches. Patient was also sent for a liver biopsy on 03/05. Results from ERCP cytology and liver biopsy are pending. Patient was placed on Zosyn throughout his hospitalization. Patient's abdominal pain resolved on 03/04. Upon discharge, patient denies nausea, vomiting, abdominal pain. He notes soreness at the liver biopsy site. Patient is to follow-up with Dr. Canela in 1 week for review of cytology and pathology results along with labs that were pending. Patient will be referred to [facility] liver transplant team for primary sclerosing cholangitis. He is to follow-up with our office as needed. Weight / BMI Weight Weight: 195 lb Body Mass Index (BMI) 27.1 ABG / Lab / Microbiology Data 03/05/24 05:59 03/05/24 05:59 Laboratory: Laboratory Results - last 24 hr 03/04/24 15:00: ESR 33 H, Iron 48 L, TIBC 318, Iron Saturation 15.1, Ferritin 277, C-React Prot Ext Range 13.50 H, YUKO-1 Antibody TNP, SS-A/Ro IgG Antibody TNP, SS-B/La IgG Antibody TNP, Sm (Ruiz) Antibody TNP, [facility] NURSE Antibody TNP, Scl-70 Scleroderma Ab TNP, Antichromatin Antibodies TNP, Centromere B Antibody TNP, HIV 1&2 Antibody Non-Reactive 03/05/24 05:59: WBC 10.1, RBC 4.52 L, Hgb 13.7, Hct 42.1, MCV 93.1, MCH 30.3, MCHC 32.5, RDW Std Deviation 51.9 H, RDW Coeff of Justine 15.0 H, Plt Count 293, MPV 11.9, Immature Gran % (Auto) 0.300, Neut % (Auto) 52.6, Lymph % (Auto) 31.3, [place] % (Auto) 11.9 H, Eos % (Auto) 3.1, Baso % (Auto) 0.8, Absolute Neuts (auto) 5.3, Absolute Lymphs (auto) 3.16, Nucleated RBC % 0, PT 12.8, INR 1.0, APTT 27.3, Sodium 141, Potassium 3.9, Chloride 109 H, Carbon Dioxide 27.0, Anion Gap 5, BUN 14, Creatinine 1.01, Estim Creat Clear Calc 88.02, Est GFR (MDRD) Af Amer 98, Est GFR (MDRD) Non-Af 81, BUN/Creatinine Ratio 13.9, Glucose 96, Calcium 8.5, Total Bilirubin 1.10 H, Direct Bilirubin 0.73 H, AST 382 H, ALT 391 H, Alkaline Phosphatase 460 H, Total Protein 6.5, Albumin 2.5 L, Globulin 4.0 Radiography Diagnostic Testing: Radiology Impression Endo Retro Cholangiopancreatogram 03/04/24 12:15 IMPRESSION: Fluoroscopy provided for ERCP, please see the dedicated ERCP report for complete details of the procedure Electronically Signed: Bill Zelaya MD at 22:57 EST , Biopsy CT 03/05/24 10:15 IMPRESSION: 1. CT directed core needle biopsy of the liver, using CT image guidance with image documentation as described. 2. Conscious Sedation protocol utilized with independent monitoring. Electronically Signed: Kb Brooks MD at 10:50 EST , D/C Instructions Discharge Diet: Low fat / Low cholesterol Discharge Activity: Return to Normal Activity DC O2, CPAP, BIPAP Needs Home O2 Discharge instructions: No Please Follow Up With: Friend,Per, DO When: You will need to contact Dr. Canela's office to schedule an appointment Meaningful Use Info Meaningful Use Meaningful Use Diagnoses (Choose all that apply): None applicable Ischemic Stroke Statin Dosing Therapy Reference: STATIN DOSE THERAPY REFERENCE: * Patients > 75 years receive moderate or high dose statin therapy. * Patients 75 years or YOUNGER should receive HIGH intensity statin dose unless contraindicated. You will be required to document reason for non-treatment if statin daily dose does not meet guidelines. HIGH DOSE STATIN THERAPY DAILY Atorvastatin > than or = to 40 mg Rosuvastatin > than or = to 20 mg Amlodipine + Atorvastatin > than or = to 2.5/40 mg Ezetimibe + Simvastatin 10/80 mg Simvastatin 80mg Discharge Plan Admission Admit Date/Time: 03/03/24 09:51 Primary Reason for Your Visit: Elevated liver enzymes and abdominal pain Attending Provider: Neli Franklin Primary Care Provider: Carlos Alberto Anthony Instructions Patient Instructions: RAD RN Biopsy Liver Dc, ROB RN Procedural Sedation Additional Instructions / Restrictions: You were found to have inflammation of the gallbladder wall and dilated ducts on MRI MRI also was concerning for primary sclerosing cholangitis Dr. Canela performed an ERCP on 03/04 which demonstrated gallstones within the common bile duct. Cells were obtained for cytology throughout all of the ducts. A referral will be sent to [facility] Liver Transplant team for evaluation for the diagnosis of primary sclerosing cholangitis. You will need to follow-up with Dr. Canela in 1 week to review results You will be sent home on oral antibiotics for 12 additional days Discharge Orders/Prescriptions Prescriptions: New amoxicillin-pot clavulanate 875-125 mg Tablet 1 tab PO BIDCM 12 Days Qty: 24 0RF Continued sertraline 100 mg tablet 50 mg PO DAILY Patient Comments: TAKE 1 TABLET BY MOUTH EVERY DAY amlodipine 5 mg tablet 5 mg PO DAILY Qty: 90 3RF losartan 25 mg tablet 25 mg PO DAILY Qty: 90 3RF metoprolol succinate 50 mg tablet extended release 24 hr 50 mg PO DAILY Qty: 90 3RF potassium chloride 10 mEq capsule, extended release 10 meq PO DAILY Qty: 90 3RF mesalamine 1.2 GM tablet 2.4 g PO DAILY Patient Comments: ulcerative colitis Referrals / Follow Up: Carlos Alberto Anthony DO [Primary Care Provider] - Per Canela DO [Med Staff - Active Staff] - 03/12/24 Disposition Disposition (needs filled in before D/C Order can be placed): Home, Self Care Charges/Coding Visit Charges Inpatient E&M: 10141 Disch Hosp
[2024-03-05] MEDS: Pantoprazole Sodium 40 MG in 0.9% Normal Saline (100mL MB+) 100 ML 330 MG IV (12:35)
[2024-03-05] MEDS: Losartan Potassium 25 MG Tablet PO (13:03)
[2024-03-05] MEDS: Potassium Chloride Oral Tablet 10 MEQ PO (13:14)
[2024-03-05] MEDS: Mesalamine 1.2 GM Tablet 2.4 GM PO (15:14)
--- NOTE | 2024-03-05 16:17 | NURSING ---
All documentation by community health nursing director Abril Sutton reviewed by nursing program coordinator Socorro BRANDN, RN.
[2024-03-06 15:07] LABS: Anti-Centromere B Ab <0.2 AI (0.0-0.9); Anti-Chromatin 0.2 AI (0.0-0.9); Anti-Jo <0.2 AI (0.0-0.9); Anti-Mitochondrial AB <20.0 Units (0.0-20.0); Anti-Scleroderma-70 AB <0.2 AI (0.0-0.9); Anti-dsDNA Ab <1 IU/mL (0-9); RNP Ab <0.2 AI (0.0-0.9); SJOGREN'S Anti-SS-A test < 0.2 AI (0.0-0.9); SJOGREN'S Anti-SS-B test < 0.2 AI (0.0-0.9); Smith Ab <0.2 AI (0.0-0.9)
[2024-03-09 12:07] LABS: ACCA 18 units (0-90); AFP, Tumor Marker < 1.8 ng/mL (0.0-8.4); ALCA 5 units (0-60); AMCA 39 units (0-100); Albumin 3.2 g/dL (2.9-4.4); Alpha-1-Globulins 0.3 g/dL (0.0-0.4); Alpha-2-Globulins 0.8 g/dL (0.4-1.0); Angiotensin Convert Enzyme 49 U/L (14-82); Anti-Smooth Muscle ABS 9 Units (0-19); Carbohydrate AG 19-9 86 U/mL (0-35); Cytoplasmic Ab (C-ANCA) <1:20 titer (Neg:<1:20); Deamidated Gliadin IgA 5 units (0-19); Deamidated Gliadin IgG 6 units (0-19); Endomysial Antibody IgA Negative (Negative); Gamma Globulin 1.4 g/dL (0.4-1.8); IgG, Quant 1524 mg/dL (603-1613); Immunoglobulin A 280 mg/dL (90-386); Immunoglobulin E 236 IU/mL (6-495); Immunoglobulin G, Subclass 1 852 mg/dL (248-810); Immunoglobulin G, Subclass 2 326 mg/dL (130-555); Immunoglobulin G, Subclass 3 28 mg/dL (15-102); Immunoglobulin G, Subclass 4 85 mg/dL (2-96); Immunoglobulin M 90 mg/dL (20-172); PROEL- TOTAL PROTEIN 6.9 g/dL (6.0-8.5); Perinuclear Ab (P-ANCA) <1:20 titer (Neg:<1:20); gASCA 16 units (0-50); t-Transglutaminase IgA <2 U/mL (0-3)
== END 2024-03-05 16:44 | disposition home or self-care (01) | DRG 445 ==
LOC: ED 10:26 → MS3 11:21
PROVIDERS: Internal Medicine Gastroenterology; Physician Assistant; Admitting Provider Surgery; Emergency Provider Emergency Medicine; PCP Family Medicine; Visit Provider Surgery
PROC: 0FC98ZZ Extirpation of Matter from Common Bile Duct, Via Natural or Artificial Opening Endoscopic (ICD-10-PCS; CPT 43260; principal; 2024-03-04 15:55)
DX: K83.01 Primary sclerosing cholangitis (principal); K51.90 Ulcerative colitis, unspecified, without complications; I10 Essential (primary) hypertension; K75.89 Other specified inflammatory liver diseases; I25.10 Atherosclerotic heart disease of native coronary artery without angina pectoris; K82.8 Other specified diseases of gallbladder; Z79.899 Other long term (current) drug therapy
CPT/HCPCS: 36415; 74177; 74181; 74330; 76000; 76705; 77012; 80048; 80053; 80076; 82105; 82164; 82728; 82784; 82785; 82787; 83516; 83540; 83550; 83605; 83690; 84165; 85025; 85610; 85652; 85730; 86036; 86037; 86140; 86225; 86235; 86255; 86301; 86334; 86671; 86703; 88108; 88161; 88305; 88307; 88312; 88313; 93005; 94668; 99156; 99284; Q9967; A4216; J2405

== ENCOUNTER 2024-04-13 10:18 | Emergency (ER) | payer BC, SELFPAY ==
[2024-04-13 10:18] VITALS: BP 136/88; PULSE 78; RESP 16; TEMP 36.5; O2SAT 98; BMI 29.0
--- NOTE | 2024-04-13 10:30 | US_ITS ---
PROCEDURE: ABDOMEN LIMITED REASON FOR EXAM: Pain COMPARISON: None FINDINGS: Liver: Diffusely echogenic suggesting fatty infiltration. It measures 15 cm. Portal color flow is hepatopetal Gallbladder: Distended gallbladder measuring 10.9 cm. Positive sonographic Alcaraz's sign. Sludge is noted. Gallbladder wall measures 3 mm. Common bile duct: Normal measuring 10 mm with thick wall. Pancreas: Visualized portions are sonographically unremarkable. Right kidney measures 12.3 by 6.5 x 5.2 cm. No right upper quadrant ascites. US/Abdomen Limited IMPRESSION: Sonographic findings suggestive of acute cholecystitis. Reading Location: [facility]
--- NOTE | 2024-04-13 10:30 | ED.VIS.GI ---
HPI HPI - GI History of Present Illness Chief Complaint: Abd Pain Narrative Narrative: 54-year-old male past medical history of reported liver problems where he there was sludge/mucus found in his common bile duct and stones found presents with right upper quadrant abdominal pain as well as right shoulder pain that happened at the same time since yesterday. He relates history that in February, 2 months ago, he had a biopsy of the liver performed. He has had multiple studies performed including ultrasound, CT, and MRI of the abdomen. As he has a follow-up appoint with Dr. Canela on Sunday, yesterday he began having pain in the right upper quadrant and the right shoulder. A few days prior to that, he felt feverish, and went saw his primary care provider. He was tested for COVID, and influenza which were negative. He denies any exacerbating or alleviating factors. No problems with bowel movements, no change in color of his skin, no urinary problems. There are no exacerbating or alleviating factors to his pain. [facility] Medical History Hx of supraventricular tachycardia Hx of ulcerative colitis Irregular heartbeat Cough History of tilt table evaluation (07/2014) Syncope Hypokalemia Nonobstructive atherosclerosis of coronary artery Right bundle branch block (RBBB) Essential (primary) hypertension Paroxysmal supraventricular tachycardia Ulcerative colitis Home Medications ?Medication ?Instructions ?Recorded ?Last Taken ?Type mesalamine 1.2 gram tablet,delayed 2.4 g PO DAILY colitis 10/21/14 06/09/19 History release sertraline 100 mg tablet 50 mg PO DAILY 02/17/20 Unknown History amoxicillin 875 mg-potassium 1 tab PO BIDCM 12 days #24 tabs 03/05/24 Unknown Rx clavulanate 125 mg tablet amlodipine 5 mg tablet 5 mg PO QDAY #90 tabs 04/10/24 Unknown Rx losartan 25 mg tablet 25 mg PO QDAY #90 tabs 04/10/24 Unknown Rx metoprolol succinate 50 mg 50 mg PO QDAY #90 tabs 04/10/24 Unknown Rx tablet,extended release 24 hr potassium chloride 10 mEq 10 meq PO QDAY #90 tabs 04/10/24 Unknown Rx tablet,extended release Allergy/AdvReac Type Severity Reaction Status Date / Time metoprolol (From Lopressor) Allergy Severe severe Verified 04/13/24 10:18 lightheadedness, dizziness lidocaine Allergy THROAT Verified 04/13/24 10:18 SWELLING morphine Allergy Other Verified 04/13/24 10:18 soap Allergy Hives Verified 04/13/24 10:18 MAGIC MOUTH WASH Allergy throat Uncoded 01/25/23 11:11 swelling Family History Father CAD (coronary artery disease) Mother Heart disease Brother Heart disease Surgical History History of appendectomy History of open reduction and internal fixation (ORIF) procedure History of surgical removal of testicle History of nasal polypectomy History of tonsillectomy History of kidney surgery History of radiofrequency ablation procedure for cardiac arrhythmia (04/28/14) History of left heart catheterization (08/28/14) Social History Smoking Status: Never smoker alcohol intake: never substance use type: does not use caffeine: Yes Type: tea Number of servings: 3 ROS ROS ED ROS Narrative Review of systems positive for nausea, feeling feverish a few days ago. He has not positive right upper quadrant pain and right shoulder pain. No problems with bowel movements, no dysuria materia. No or alleviating factors to his pain. At times his pain is aching in function. EXAM Physical Exam Narrative Exam Narrative: Afebrile. Vital signs noted. Nontoxic-appearing. Cardiovascular examination feels a regular rate and rhythm. Lungs are clear to auscultation bilaterally. The abdomen is soft with tenderness to palpation in the right upper quadrant. Questionable Alcaraz sign. Sounds. Neurological is nonfocal and nonlateralizing. Stable to transfer to the cot. Skin examination does not show evidence of jaundice. Const Vital Signs: 04/13/24 10:18 04/13/24 12:18 Temperature 97.7 F L Temperature Source Oral Pulse Rate 78 82 Respiratory Rate 16 16 Blood Pressure 136/88 H 136/83 H Blood Pressure Mean 104 100 Pulse Ox 98 99 Oxygen Delivery Method Room Air MDM MDM MDM Narrative Medical decision making narrative: I reviewed the patient's prior EMR. He also presents with paperwork showing him to seek medical attention if he gets right upper quadrant or shoulder pain. The problem list does include primary sclera and cholangitis, elevated liver enzymes and acute acalculous cholecystitis. He states he has not had cholecystectomy performed. Differential diagnosis but not limited to return of sclerosing cholangitis versus pancreatitis versus cholecystitis again. I reviewed his operative notes and he had thickening of the gallbladder wall without stones and concerns for primary sclerosing cholangitis. MRCP performed by Dr. Canela did show choledocholithiasis that was removed. I reviewed the patient's laboratory work and he has normal white count of 10.6 with hemoglobin 15.0, hematocrit 44.8, platelet count 361. CMP obtained does show elevation of AST at 101 and ALT at 128 with alk phos 411 but when compared to prior laboratories these appear more baseline. Lipase normal at 27 so I doubt acute pancreatitis. Ultrasound of the right upper quadrant/gallbladder shows sonographic findings for acute cholecystitis. However, it is the common bile duct that appears thickened, and is 10 mm, but gallbladder wall is not thickened it is normal at 3 mm. The gallbladder is distended at 10.9 cm. I discussed patient with Dr. Canela with gastroenterology/hepatology who suggested that he discuss patient with Dr. Ariza. In discussion with Dr. Ariza with general surgery, was not felt that he needs an acute cholecystectomy as the problem underlying may be more of the exacerbation of the primary sclerosing cholangitis. In discussion with Dr. Canela as well, the biopsy of the liver does show fibrosis consistent with early cirrhosis. Hence, it was not felt that he necessarily needed liver transplant at this time. After the patient's second dose of fentanyl, he states he feels improved. I discussed observation/admission with him, but he prefers outpatient treatment and follow-up with Dr. Canela which she has on Sunday, 2 days from now. I read discussed patient with Dr. Canela and he finds is agreeable. Patient will be written for antibiotics in the form of Augmentin for 14 days, and be written a prescription for oxycodone as well. He is to return with fever, new or worsening symptoms. Patient is agreeable to the plan. Disposition is discharged home in stable condition. History & Record Review Discussion w/independent historian: Patient Lab Data Attestation: I reviewed the patient's lab results. Labs: Laboratory Results - last 24 hr 04/13/24 10:47 WBC 10.6 RBC 4.89 Hgb 15.0 Hct 44.8 MCV 91.6 MCH 30.7 MCHC 33.5 RDW Std Deviation 47.6 H RDW Coeff of Justine 14.1 Plt Count 361 MPV 10.7 Immature Gran % (Auto) 0.300 Neut % (Auto) 58.6 Lymph % (Auto) 21.9 [place] % (Auto) 16.7 H Eos % (Auto) 1.7 Baso % (Auto) 0.8 Absolute Neuts (auto) 6.2 Absolute Lymphs (auto) 2.33 Nucleated RBC % 0 Sodium 138 Potassium 4.6 Chloride Direct 102 Carbon Dioxide 25.2 Anion Gap 11 BUN 10 Creatinine 0.80 Estim Creat Clear Calc 120.92 Est GFR (MDRD) Non-Af 104 BUN/Creatinine Ratio 12.1 Glucose 98 Calcium 9.3 Total Bilirubin 0.87 AST 101 H ALT 128 H Alkaline Phosphatase 411 H Total Protein 7.9 Albumin 3.9 Globulin 4.0 Albumin/Globulin Ratio 1.0 Lipase 27 Radiography Diagnostic Testing: Clinical Impression(s) from Imaging Studies Abdomen Ultrasound 04/13/24 10:30 IMPRESSION: Sonographic findings suggestive of acute cholecystitis. Reading Location: [facility] Management Discussion w/another healthcare provider: Stock [employer] Inspector (Dr. Canela, Dr. Ariza) Discharge Plan Triage Chief Complaint: Abd Pain ED Provider: Nixon Conti Dx/Rx/DC Orders Clinical Impression: Primary sclerosing cholangitis, Abdominal pain, acute, right upper quadrant, Gallbladder sludge Instructions: Anatomy of the Digestive System Prescriptions: No Action sertraline 100 mg tablet 50 mg PO DAILY Patient Comments: TAKE 1 TABLET BY MOUTH EVERY DAY mesalamine 1.2 GM tablet 2.4 g PO DAILY Patient Comments: ulcerative colitis amoxicillin-pot clavulanate 875-125 mg Tablet 1 tab PO BIDCM 12 Days Qty: 24 0RF amlodipine 5 mg tablet 5 mg PO QDAY Qty: 90 3RF losartan 25 mg tablet 25 mg PO QDAY Qty: 90 3RF metoprolol succinate 50 mg tablet extended release 24 hr 50 mg PO QDAY Qty: 90 3RF potassium chloride 10 mEq tablet extended release 10 meq PO QDAY Qty: 90 3RF Primary Care Provider: Carlos Alberto Anthony Referrals: Carlos Alberto Anthony, [Primary Care Provider] - Print Language: Swedish
[2024-04-13] MEDS: 0.9% Normal Saline (1000mL) 1,000 ML 999 ML IV (10:49)
[2024-04-13] MEDS: Ondansetron 4 MG/2 ML Vial IV (10:49)
[2024-04-13 10:50] LABS: Absolute Lymphocyte Count 2.33 X10^3/uL (0.83-4.51); Absolute Neutrophil Count 6.2 X10^3/uL (2.0-7.7); Basophil# 0.09 X10^3/uL; Basophil% 0.8 % (0-1); Eosinophil# 0.18 X10^3/uL; Eosinophils% 1.7 % (0-5); Hematocrit 44.8 % (40-54); Lymphocyte # 2.33 X10^3/ul (0.83-4.51); Lymphocyte % 21.9 % (19-41); Mean Corp Hgb Conc 33.5 g/dL (32-36); Mean Corpuscular Hgb 30.7 pg (27.0-32.0); Mean Corpuscular Volume 91.6 fL (80-94); Mean Platelet Vol. 10.7 fl (6.2-12.0); Monocyte# 1.77 X10^3/uL; Monocyte% 16.7 % (0-10); NRBC Flagged by Analyzer 0 % (0-5); Neutrophil # 6.22 X10^3/uL (2.7-7.7); Neutrophil % 58.6 % (47-70); POSITIVE DIFFERENTIAL YES; POSITIVE MORPHOLOGY YES; Platelet Count 361 K/mm3 (150-450); RBC Distribution Width CV 14.1 % (11.6-14.6); RBC Distribution Width SD 47.6 fl (35.1-43.9); Red Blood Count 4.89 M/mm3 (4.6-6.2); White Blood Count 10.6 K/mm3 (4.4-11.0)
[2024-04-13] MEDS: fentaNYL 100 MCG/2 ML Ampul 50 MCG IV ×2 (10:51→12:09)
[2024-04-13 11:05] LABS: AST(SGOT) 101 U/L (<=37); Alanine Aminotransfer ALT/SGPT 128 U/L (<=46); Albumin, Serum 3.9 g/dL (3.5-5.0); Alkaline Phosphatase 411 U/L (40-129); Anion Gap 11 (5-15); BUN 10 mg/dL (4-19); BUN/Creat Ratio 12.1 RATIO (10-20); Calcium 9.3 mg/dL (7.6-11.0); Carbon Dioxide 25.2 mmol/L (22.0-29.0); Chloride 102 mmol/L (96-108); EST Glomerular Filtration Rate 104 (>60); Estimated Creatinine Clearance 120.92 ml/min (50-250); Glucose 98 mg/dL (70-99); Lipase 27 U/L (13-75); Potassium 4.6 mmol/L (3.3-5.1); Protein, Total 7.9 g/dL (5.9-8.4); Sodium Level 138 mmol/L (133-145); Total Bilirubin 0.87 mg/dL (0.00-1.30)
[2024-04-13 11:12] LABS: Differential Indicated SCAN CRITERIA MET
[2024-04-13 12:18] VITALS: BP 136/83; PULSE 82; RESP 16; O2SAT 99
[2024-04-13] MEDS: Amox/Clavulanate 875 MG Tablet PO (13:44)
[2024-04-13 13:49] VITALS: BP 138/90; PULSE 73; RESP 18; TEMP 36.6; O2SAT 100
== END 2024-04-13 13:49 | disposition home or self-care (01) ==
PROVIDERS: Emergency Provider Emergency Medicine; PCP Family Medicine; Visit Provider Emergency Medicine
DX: K83.01 Primary sclerosing cholangitis (principal); K83.8 Other specified diseases of biliary tract; I25.10 Atherosclerotic heart disease of native coronary artery without angina pectoris; M25.511 Pain in right shoulder; Z11.52 Encounter for screening for COVID-19; I10 Essential (primary) hypertension; Z79.899 Other long term (current) drug therapy
CPT/HCPCS: 76705; 80053; 83690; 85025; 96361; 96374; 96375; 96376; 99283; A4216; J2405

== ENCOUNTER → 2024-04-15 | Outpatient (CLI) | payer BC, SELFPAY ==
[2024-04-15 09:56] LABS: Erythrocyte Sedimentation Rate 22 mm/hr (0-20)
[2024-04-15 09:59] LABS: Absolute Lymphocyte Count 2.88 X10^3/uL (0.83-4.51); Basophil# 0.08 X10^3/uL; Eosinophil# 0.32 X10^3/uL; Eosinophils% 3.8 % (0-5); Hematocrit 45.9 % (40-54); Hemoglobin 15.3 g/dL (13.0-16.5); Lymphocyte # 2.88 X10^3/ul (0.83-4.51); Lymphocyte % 34.4 % (19-41); Mean Corp Hgb Conc 33.3 g/dL (32-36); Mean Corpuscular Hgb 30.8 pg (27.0-32.0); Mean Corpuscular Volume 92.4 fL (80-94); Mean Platelet Vol. 11.2 fl (6.2-12.0); Monocyte# 1.06 X10^3/uL; Monocyte% 12.7 % (0-10); NRBC Flagged by Analyzer 0 % (0-5); Neutrophil # 4.01 X10^3/uL (2.7-7.7); Platelet Count 391 K/mm3 (150-450); RBC Distribution Width SD 47.5 fl (35.1-43.9); Red Blood Count 4.97 M/mm3 (4.6-6.2); White Blood Count 8.4 K/mm3 (4.4-11.0)
[2024-04-15 10:41] LABS: ALB/GLOB Ratio 0.9 RATIO (0.9-2.4); AST(SGOT) 125 U/L (<=37); Alanine Aminotransfer ALT/SGPT 182 U/L (<=46); Albumin, Serum 3.8 g/dL (3.5-5.0); Alkaline Phosphatase 466 U/L (40-129); Anion Gap 12 (5-15); BUN 10 mg/dL (4-19); BUN/Creat Ratio 11.8 RATIO (10-20); Calcium,Total 9.4 mg/dL (7.6-11.0); Carbon Dioxide 24.3 mmol/L (21.0-32.0); Chloride 103 mmol/L (98-108); Creatinine, Serum 0.84 mg/dL (0.70-1.20); EST Glomerular Filtration Rate 102 (>60); Globulin 4.5 g/dL (2.2-4.2); Glucose 96 mg/dL (70-99); Potassium 4.3 mmol/L (3.3-5.1); Protein, Total 8.2 g/dL (5.9-8.4); Sodium Level 140 mmol/L (133-145); Total Bilirubin 1.34 mg/dL (0.00-1.30)
== END | disposition home or self-care (01) ==
PROVIDERS: PCP Family Medicine; Referring Provider Internal Medicine Gastroenterology; Visit Provider Internal Medicine Gastroenterology
DX: K83.01 Primary sclerosing cholangitis (principal); R10.11 Right upper quadrant pain; K82.8 Other specified diseases of gallbladder
CPT/HCPCS: 36415; 80053; 85025; 85652; 86140

== ENCOUNTER → 2024-04-18 | Outpatient (CLI) | payer BC, SELFPAY ==
[2024-04-18 07:37] LABS: Absolute Lymphocyte Count 3.71 X10^3/uL (0.83-4.51); Absolute Neutrophil Count 3.7 X10^3/uL (2.0-7.7); Basophil# 0.12 X10^3/uL; Basophil% 1.4 % (0-1); Eosinophil# 0.32 X10^3/uL; Eosinophils% 3.7 % (0-5); Hematocrit 44.3 % (40-54); Hemoglobin 14.5 g/dL (13.0-16.5); Lymphocyte # 3.71 X10^3/ul (0.83-4.51); Lymphocyte % 42.8 % (19-41); Mean Corp Hgb Conc 32.7 g/dL (32-36); Mean Corpuscular Hgb 30.5 pg (27.0-32.0); Mean Corpuscular Volume 93.3 fL (80-94); Mean Platelet Vol. 11.2 fl (6.2-12.0); Monocyte# 0.84 X10^3/uL; Monocyte% 9.7 % (0-10); NRBC Flagged by Analyzer 0 % (0-5); Neutrophil # 3.65 X10^3/uL (2.7-7.7); Neutrophil % 42.2 % (47-70); Platelet Count 509 K/mm3 (150-450); RBC Distribution Width CV 14.1 % (11.6-14.6); RBC Distribution Width SD 48.9 fl (35.1-43.9); Red Blood Count 4.75 M/mm3 (4.6-6.2); White Blood Count 8.7 K/mm3 (4.4-11.0)
[2024-04-18 08:31] LABS: ALB/GLOB Ratio 0.9 RATIO (0.9-2.4); AST(SGOT) 54 U/L (<=37); Alanine Aminotransfer ALT/SGPT 116 U/L (<=46); Albumin, Serum 3.6 g/dL (3.5-5.0); Alkaline Phosphatase 370 U/L (40-129); Anion Gap 11 (5-15); BUN 11 mg/dL (4-19); BUN/Creat Ratio 12.6 RATIO (10-20); Calcium,Total 9.1 mg/dL (7.6-11.0); Carbon Dioxide 24.9 mmol/L (21.0-32.0); Chloride 105 mmol/L (98-108); Creatinine, Serum 0.84 mg/dL (0.70-1.20); EST Glomerular Filtration Rate 102 (>60); Globulin 4.1 g/dL (2.2-4.2); Glucose 94 mg/dL (70-99); Potassium 4.2 mmol/L (3.3-5.1); Protein, Total 7.7 g/dL (5.9-8.4); Sodium Level 141 mmol/L (133-145); Total Bilirubin 0.76 mg/dL (0.00-1.30)
== END | disposition home or self-care (01) ==
LOC: LAB 06:52
PROVIDERS: PCP Family Medicine; Referring Provider Internal Medicine Gastroenterology; Visit Provider Internal Medicine Gastroenterology
DX: K83.01 Primary sclerosing cholangitis (principal)
CPT/HCPCS: 36415; 80053; 85025

== ENCOUNTER 2024-05-02 07:48 | Emergency (ER) | payer BC, SELFPAY ==
[2024-05-02 07:49] VITALS: BP 158/136; PULSE 81; RESP 16; TEMP 36.8; O2SAT 98; BMI 29.1
--- NOTE | 2024-05-02 08:14 | EDS_ITS ---
HPI History of Present Illness Chief Complaint: Foreign Body Detail of Chief Complaint: Possible foreign body ingestion Informant: patient Narrative Narrative: Possible foreign body ingestion. Patient states that he was taken a gel capsule for some heartburn this morning when he felt like it got stuck in his throat. Patient then had an episode where he started feeling lightheaded and tingly and felt like he might pass out. He is concerned that he may have gone into his lungs. Patient states that he is had a cough and cold and was diagnosed with influenza yesterday. He said symptoms for couple of days. No other complaints. [facility] Medical History Hx of supraventricular tachycardia Hx of ulcerative colitis Irregular heartbeat Cough History of tilt table evaluation (07/2014) Syncope Hypokalemia Nonobstructive atherosclerosis of coronary artery Right bundle branch block (RBBB) Essential (primary) hypertension Paroxysmal supraventricular tachycardia Ulcerative colitis Home Medications ?Medication ?Instructions ?Recorded ?Last Taken ?Type mesalamine 1.2 gram tablet,delayed 2.4 g PO DAILY coli tis 10/21/14 06/09/19 History release sertraline 100 mg tablet 50 mg PO DAILY 02/17/20 Unkn own History amlodipine 5 mg tablet 5 mg PO QDAY #90 tabs Unknown Rx losartan 25 mg tablet 25 mg PO QDAY #90 tabs 04/10 Unknown Rx metoprolol succinate 50 mg 50 mg PO QDAY #90 tabs 03/16 09/05 Unknown Rx tablet,extended release 24 hr potassium chloride 10 mEq 10 meq PO QDAY #90 tabs 03/16 09/05 Unknown Rx tablet,extended release amoxicillin 875 mg-potassium 1 tab PO BID 14 days #28 tabs 04/13/24 Unknown Rx clavulanate 125 mg tablet oxycodone 5 mg tablet 5 mg PO Q6H PRN pain 3 days #12 04/13/24 Unknown Rx tabs ursodiol 250 mg tablet 250 mg PO BID #60 tabs 04/15 Unknown Rx
--- NOTE | 2024-05-02 08:14 | EX.ED.DYSGE1 ---
HPI History of Present Illness Chief Complaint: Foreign Body Detail of Chief Complaint: Possible foreign body ingestion Informant: patient Narrative Narrative: Possible foreign body ingestion. Patient states that he was taken a gel capsule for some heartburn this morning when he felt like it got stuck in his throat. Patient then had an episode where he started feeling lightheaded and tingly and felt like he might pass out. He is concerned that he may have gone into his lungs. Patient states that he is had a cough and cold and was diagnosed with influenza yesterday. He said symptoms for couple of days. No other complaints. [facility] Medical History Hx of supraventricular tachycardia Hx of ulcerative colitis Irregular heartbeat Cough History of tilt table evaluation (07/2014) Syncope Hypokalemia Nonobstructive atherosclerosis of coronary artery Right bundle branch block (RBBB) Essential (primary) hypertension Paroxysmal supraventricular tachycardia Ulcerative colitis Home Medications ?Medication ?Instructions ?Recorded ?Last Taken ?Type mesalamine 1.2 gram tablet,delayed 2.4 g PO DAILY colitis 10/21/14 06/09/19 History release sertraline 100 mg tablet 50 mg PO DAILY 02/17/20 Unknown History amlodipine 5 mg tablet 5 mg PO QDAY #90 tabs 04/10/24 Unknown Rx losartan 25 mg tablet 25 mg PO QDAY #90 tabs 04/10/24 Unknown Rx metoprolol succinate 50 mg 50 mg PO QDAY #90 tabs 04/10/24 Unknown Rx tablet,extended release 24 hr potassium chloride 10 mEq 10 meq PO QDAY #90 tabs 04/10/24 Unknown Rx tablet,extended release amoxicillin 875 mg-potassium 1 tab PO BID 14 days #28 tabs 04/13/24 Unknown Rx clavulanate 125 mg tablet oxycodone 5 mg tablet 5 mg PO Q6H PRN pain 3 days #12 04/13/24 Unknown Rx tabs ursodiol 250 mg tablet 250 mg PO BID #60 tabs 04/15/24 Unknown Rx Allergy/AdvReac Type Severity Reaction Status Date / Time metoprolol (From Lopressor) Allergy Severe severe Verified 04/13/24 10:18 lightheadedness, dizziness lidocaine Allergy THROAT Verified 04/13/24 10:18 SWELLING morphine Allergy Other Verified 04/13/24 10:18 soap Allergy Hives Verified 04/13/24 10:18 MAGIC MOUTH WASH Allergy throat Uncoded 01/25/23 11:11 swelling Family History Father CAD (coronary artery disease) Mother Heart disease Brother Heart disease Surgical History History of appendectomy History of open reduction and internal fixation (ORIF) procedure History of surgical removal of testicle History of nasal polypectomy History of tonsillectomy History of kidney surgery History of radiofrequency ablation procedure for cardiac arrhythmia (04/28/14) History of left heart catheterization (08/28/14) Social History Smoking Status: Never smoker alcohol intake: never substance use type: does not use caffeine: Yes Type: tea Number of servings: 3 ROS ROS ED ROS Narrative Dizziness, paresthesia Review of Systems ROS Unobtainable: other Constitutional Constitutional ED: Reports lethargy; Denies chills, fever(s), sweats or weight loss Eyes Eyes: Denies blurry vision, change in vision or diplopia ENT ENT ED: Reports sore throat; Denies rhinorrhea Cardiovascular Cardiovascular: Denies chest pain, orthopnea or racing heartbeat Respiratory/Chest Respiratory/Chest: Reports cough; Denies dyspnea, dyspnea on exertion, orthopnea or sputum Gastrointestinal Gastrointestinal: Denies abdominal pain, diarrhea, nausea or vomiting Genitourinary Genitourinary ED: Denies dysuria, hematuria or urinary frequency Musculoskeletal Musculoskeletal: Denies arthralgias, back pain, myalgias or neck pain Integumentary Denies abscess, Abrasions or rash Neurologic Neurologic: Denies headache(s) or weakness Psychiatric Psychiatric: Denies anxiety, depression or suicidal thoughts Endocrine Endocrinology: Denies polydipsia, polyphagia or polyuria Hematologic/Lymphatic Hematologic/Lymphatic: Denies easy bleeding, easy bruising or lymphadenopathy Allergic/Immunologic Allergic/Immunologic ED: Denies mouth swelling, tongue swelling or urticaria EXAM Physical Exam Const Vital Signs: 05/02/24 07:49 Temperature 98.3 F Temperature Source Oral Pulse Rate 81 Respiratory Rate 16 Blood Pressure 158/136 H Blood Pressure Mean 143 Pulse Ox 98 Oxygen Delivery Method Room Air Positive well nourished and well developed General Appearance ED: well developed and NAD HEENT Reports TM's clear and moist mucous membranes normocephalic and atraumatic; Negative for trauma or tenderness Tympanic Membrane ED: Yes TM's clear Eyes PERRL and EOMs intact bilaterally General Eye ED: Negative for pale conjunctiva or scleral icterus Neck no lymphadenopathy, supple and no JVD General: Negative for tenderness Chest Wall inspection of chest normal and palpation of chest normal Chest: Negative for tenderness Resp normal respiratory effort and clear to auscultation bilaterally Effort and Inspection: Negative for respiratory distress or pain with movement Auscultation: Negative for rhonchi, wheezes or diminished lung sounds Cardio regular rate, regular rhythm, S1 normal heart sound, S2 normal heart sound and no murmurs Peripheral Pulses: pulses 2+ throughout GI normal to inspection, nondistended, normoactive bowel sounds, soft to palpation, non-tender, non-distended and no masses Back/Spine no CVA tenderness and no thoracic nor lumbar tenderness Extremity normal to inspection General Extremety ED: Negative for edema General Extremity: Negative for edema Neuro oriented x3, CN's II-XII intact bilaterally, no sensory deficits noted and gait normal Sensorium / Orientation: awake, alert, oriented to person, oriented to place and oriented to time Motor Exam: strength 5/5 throughout and strength abnormal Psych mental status grossly normal Skin no rashes or lesions noted and no wounds MDM MDM MDM Narrative Medical decision making narrative: Clinically patient looks well. No significant complaints at this time. He was able to drink water in the department without difficulty. Does not have any significant cough and I do not hear any wheezing on exam. I did obtain a chest x-ray that was unremarkable. This point I feel patient can be discharged to home. The gel-like capsule I feel will likely dissolve and do not feel he needs any further or acute intervention. Suspicion for ingestion into the lungs is low. Suspect patient may have had vasovagal episode related to the choking spell Radiography Diagnostic Testin view x-rays of the chest obtained interpreted by myself as no evidence of infiltrate or foreign body or acute process. Radiology in agreement. Discharge Plan Triage Chief Complaint: Foreign Body ED Provider: María Stone Dx/Rx/DC Orders Clinical Impression: Choking episode, Vasovagal near syncope Instructions: ED Esophageal Foreign Body, Resolved, ED Near-Fainting- Vagal Reaction Prescriptions: No Action sertraline 100 mg tablet 50 mg PO DAILY Patient Comments: TAKE 1 TABLET BY MOUTH EVERY DAY ursodiol 250 mg tablet 250 mg PO BID Qty: 60 6RF mesalamine 1.2 GM tablet 2.4 g PO DAILY Patient Comments: ulcerative colitis amoxicillin-pot clavulanate 875-125 mg tablet 1 tab PO BID 14 Days Qty: 28 0RF oxycodone 5 mg tablet 5 mg PO Q6H PRN (Reason: pain) 3 Days Qty: 12 0RF amlodipine 5 mg tablet 5 mg PO QDAY Qty: 90 3RF losartan 25 mg tablet 25 mg PO QDAY Qty: 90 3RF metoprolol succinate 50 mg tablet extended release 24 hr 50 mg PO QDAY Qty: 90 3RF potassium chloride 10 mEq tablet extended release 10 meq PO QDAY Qty: 90 3RF Primary Care Provider: Carlos Alberto Anthony Referrals: Carlos Alberto Anthony DO [Primary Care Provider] - As Needed Print Language: Greek Disposition Disposition: Home, Self Care
--- NOTE | 2024-05-02 08:22 | RAD_ITS ---
EXAM: XR Chest, 2 Views CLINICAL INDICATION: COUGH, POSSIBLE FOREIGN BODY INGESTION TECHNIQUE: Frontal and lateral views of the chest. COMPARISON: No relevant prior studies available. FINDINGS: LUNGS AND PLEURAL SPACES: Unremarkable. No consolidation. No pneumothorax. HEART: Unremarkable. No cardiomegaly. MEDIASTINUM: Unremarkable. Normal mediastinal contour. BONES/JOINTS: Unremarkable. No acute fracture. SOFT TISSUES: Unremarkable as visualized. No radiopaque foreign body. RAD/Chest PA and Lateral IMPRESSION: No radiopaque foreign body. Reading Location: [facility]
[2024-05-02 09:13] VITALS: BP 122/102; PULSE 102; RESP 18; TEMP 36.6; O2SAT 92
--- NOTE | 2024-05-02 09:15 | ED.RN ---
pt took 1 tab daquil this am and felt like got stuck in throat. had coughing spell at home and got light headed. waited for it to pass but still felt like was lodged down in [facility]. xray neg here and pt paola po jyoti. dc'd to home.
== END 2024-05-02 09:16 | disposition home or self-care (01) ==
PROVIDERS: Emergency Provider Emergency Medicine; PCP Family Medicine; Visit Provider Emergency Medicine
DX: T17.998A Other foreign object in respiratory tract, part unspecified causing other injury, initial encounter (principal); W44.8XXA Other foreign body entering into or through a natural orifice, initial encounter; R55 Syncope and collapse; I25.10 Atherosclerotic heart disease of native coronary artery without angina pectoris; I10 Essential (primary) hypertension; Z79.899 Other long term (current) drug therapy
CPT/HCPCS: 71046; 99282